=== PATIENT | female | born 1990 | race African-American/Black ===

== ENCOUNTER 2023-04-27 04:49 | Emergency (ER) | payer MEDICAID, SELFPAY ==
[2023-04-27 04:52] VITALS: BMI 38.6
[2023-04-27 04:59] VITALS: BP 174/105; PULSE 74; RESP 16; TEMP 36.3; O2SAT 97
--- NOTE | 2023-04-27 05:05 | ED.CHESTPAIN ---
HPI - Chest Pain General Chief Complaint: Chest Pain Stated Complaint: chest discomfort Time Seen by Provider: 04/27/23 04:57 Source: patient Mode of arrival: EMS Limitations: no limitations History of Present Illness HPI narrative: Patient comes to the emergency room complaining of left-sided chest pain that started approximately 3 hours ago. Patient states that she has been having palpitations for several years, the palpitations got worse while she was , patient delivered her baby 2 months ago, palpitations have been less intense but still present. Today, patient states that she was half asleep, started having palpitations, sharp pain, then subsided. Related Data Allergies Allergy/AdvReac Type Severity Reaction Status Date / Time hydromorphone [From DILAUDID] Allergy Unknown RASH Unverified 04/06/20 18:48 lamotrigine [From LAMICTAL] Allergy Unknown RASH Unverified 04/06/20 18:48 morphine [MORPHINE] Allergy Unknown RASH Unverified 04/06/20 18:48 pineapple [PINEAPPLE] Allergy Unknown HIVES Unverified 04/06/20 18:48 Review of Systems Review of Systems: Constitutional : No Weight loss, No Fever, No Chills, No Night Sweats, No Fatigue, No Malaise ENT/Mouth : No Hearing loss, No Ear Pain, No Nasal Congestion, No Sinus Pain, No Hoarseness, No sore throat, No Rhinorrhea, No Swallowing Difficulty Eyes: No Eye Pain, No Swelling, No Redness, No Foreign Body, No Discharge, No Vision Changes Cardiovascular : Complaining of left-sided chest pain,, No SOB, No Dyspnea on Exertion, No Orthopnea, No Edema, planning palpitations Respiratory : No Cough, No Sputum, No Wheezing, No Smoke Exposure, No Dyspnea Gastrointestinal : No Nausea, No Vomiting, No Diarrhea, No Constipation, No abdominal Pain, No Hematochezia, No Melena Genitourinary : no irregular bleeding, No Dysuria, No Urinary Frequency, No Hematuria, No Urinary Incontinence, No Urgency, No Flank Pain, No Urinary Flow Changes, No Hesitancy Musculoskeletal : No joint pain, No Myalgias, No Joint Swelling Skin : No Skin Lesions, No rash Neuro : No Weakness, No Numbness, No Paresthesias, No Loss of Consciousness, No Dizziness, No Headache Psych : No Anxiety/Panic, No Depression, No SI/HI/AH/VH, No Social Issues, Heme/Lymph: No Bruising, No Bleeding,No Lymphadenopathy Endocrine : No Polyuria, No Polydipsia, No Temperature Intolerance [facility] Social History Social History Advance Directives: No Advance Directives Information Provided: No Patient : No Physical Exam Vital Signs: Vital Signs: Last Vital Signs Temp 97.4 F 04/27/23 04:59 Pulse 74 04/27/23 04:59 Resp 16 04/27/23 04:59 BP 174/105 H 04/27/23 04:59 Pulse Ox 97 04/27/23 04:59 O2 Del Method Room Air 04/27/23 04:59 BMI result Body Mass Index 38.6 Const: Other: Appearance: Alert. Oriented X3. No acute distress. Well appearing Eyes: Pupils equal, round and reactive to light. ENT: Pharynx normal. Neck: Normal inspection. Neck supple. No lymph nodes noted. No crepitus CVS: Normal heart rate and rhythm. Pulses normal. Normal S1 and S2 Respiratory: No respiratory distress. Breath sounds normal. No Wheezing. No rales Abdomen: Soft and nontender. No rigidity. No distention. Skin: Skin warm and dry. Normal skin color. Normal skin turgor. Extremities: No lower extremity edema. No Lacerations. No Rash Neuro: Oriented X 3. No motor deficit. No sensory deficit. Moving all extremities. No slurred speech. CN 2 through 12 grossly intact Psych: calm, cooperative, normal affect Course Course Course Narrative: -all of patient's labs and imaging are pending Medical Decision Making Medical Decision Making MDM Narrative: -my interpretation of labs: Normal D-dimer, troponin 17.8, patient does have chronic troponins on the higher spectrum of normal limits. Patient remains asymptomatic, no chest pain or palpitations. -my interpretation of EKG, sinus rhythm, heart rate 67, no ST segment depression or elevation, nonspecific T-wave inversion in lead 3, QTC 488, EKGs not crossing to the system6 -instructed patient to follow-up with the primary care physician, patient will benefit from a Holter monitor. Differential Diagnosis Differential Diagnoses: The differential diagnosis associated with the presentation includes (Sinus tachycardia, SVT, palpitations, hyperthyroidism) Admission/Observation Consideration of admission/observation: Escalation of care including admission/observation considered (Patient complaining of the patient's arrival, admission was considered) Lab Data MDM Lab Attestation statement: I reviewed the patient's lab results. 04/27/23 05:12 04/27/23 05:12 Labs: Lab Results 04/27/23 04/27/23 Range/Units 05:11 05:12 WBC 5.3 (4.8-10.8) X10*3/uL RBC 5.18 (4.20-5.50) X10*6/uL Hgb 11.2 L (12.0-16.0) g/dl Hct 38.2 (37.0-47.0) % MCV 73.7 L (80.0-98.0) fL MCH 21.6 L (27.0-33.0) pg MCHC 29.3 L (31.0-35.0) g/dl RDW 14.1 (11.0-16.0) % Plt Count 179 (160-400) X10*3/uL MPV 11.9 (9.4-12.3) fL Immature Gran % (Auto) 0.0 (0.0-0.4) % Neut % (Auto) 51.2 (45-73) % Lymph % (Auto) 36.3 (20-40) % [place] % (Auto) 8.1 (2-11) % Eos % (Auto) 4.0 (0-4) % Baso % (Auto) 0.4 (0-2) % Lymph # (Auto) 1.9 (1.2-4.9) X10*3/uL [place] # (Auto) 0.4 (0.1-1.2) X10*3/uL Eos # (Auto) 0.2 (0.0-0.4) X10*3/uL Baso # (Auto) 0.0 (0.0-0.2) X10*3/uL Abs Immat Gran (auto) 0.00 (0.00-0.03) X10*3/uL Absolute Neuts (auto) 2.7 (2.0-8.3) x10*3/uL Absolute Nucleated RBC 0.000 (0.0-0.012) X10*3/uL Nucleated RBC % (auto) 0.0 (0.0-0.2) /100WBC D-Dimer High Sensitivty < 150 NG/ML Sodium 139 (135-145) mmol/L Potassium 3.5 (3.3-5.1) mmol/L Chloride 103 (96-108) mmol/L Carbon Dioxide 24 (22-29) mmol/L Anion Gap 16 (12-20) BUN 12 (9-16) mg/dL Creatinine 0.75 (0.5-1.4) mg/dL Estim Creat Clear Calc 117.2 Estimated GFR > 60 Random Glucose 101 (60-115) mg/dL Calcium 8.9 (8.4-10.2) mg/dL Troponin I High Sens 17.8 H (<3.5-17.0) ng/L TSH 4.49 H (0.32-4.0) uIU/mL Free T4 0.76 (0.71-1.85) ng/dL Radiology Impression Discussion of test interpretation with radiology: I have reviewed the radiologist's reading. Radiologist Impression: The cardiomediastinal silhouette is normal. There is no focal lung consolidation or pleural effusion. The bony structures and soft tissues are unremarkable. XR/XR chest 1V IMPRESSION: No active cardiopulmonary disease. Critical Care Time Critical Care Time Critical Care Time: Yes Total Critical Care Time: 45 Attestation: I have personally provided critical care time. Time includes review of lab data, radiology results, discussion with consultants, and monitoring for potential decompensation. Intervention performed as documented. Discharge Plan Discharge Clinical Impression: Palpitations Patient Disposition: Home, Self-Care Instructions: Heart Palpitations (ED) Additional Instructions: Please follow-up with your primary care physician tomorrow. If you have any worsening or new symptoms, please return to the emergency room or call 911 Referrals: Roberto Carr MD [Physician] - 04/29/23
[2023-04-27 05:17] LABS: MANUAL DIFF FLAG NO
[2023-04-27 05:19] LABS: Basophils Percent Auto 0.4 % (0-2); Eosinophils Absolute Auto 0.2 X10*3/uL (0.0-0.4); Hematocrit 38.2 % (37.0-47.0); Hemoglobin 11.2 g/dl (12.0-16.0); Lymphocytes Absolute Auto 1.9 X10*3/uL (1.2-4.9); Lymphocytes Percent Auto 36.3 % (20-40); Mean Corpuscular HGB Conc 29.3 g/dl (31.0-35.0); Mean Corpuscular Hemoglobin 21.6 pg (27.0-33.0); Mean Corpuscular Volume 73.7 fL (80.0-98.0); Mean Platelet Volume 11.9 fL (9.4-12.3); Monocytes Absolute Auto 0.4 X10*3/uL (0.1-1.2); Monocytes Percent Auto 8.1 % (2-11); Neutrophils Absolute Auto 2.7 x10*3/uL (2.0-8.3); Neutrophils Percent Auto 51.2 % (45-73); Platelet Count 179 X10*3/uL (160-400); Red Blood Count 5.18 X10*6/uL (4.20-5.50); Red Cell Distribution Width 14.1 % (11.0-16.0); White Blood Count 5.3 X10*3/uL (4.8-10.8)
[2023-04-27 05:27] LABS: D Dimer High Sensitivity < 150 NG/ML
[2023-04-27 05:40] LABS: Anion Gap 16 (12-20)
[2023-04-27 05:49] LABS: Blood Urea Nitrogen 12 mg/dL (9-16); Calcium 8.9 mg/dL (8.4-10.2); Carbon Dioxide 24 mmol/L (22-29); Chloride 103 mmol/L (96-108); Creatinine Clr Calc Pharmacy 117.2; Estimated Glomerular Filt Rate > 60; Glucose Random 101 mg/dL (60-115); Potassium 3.5 mmol/L (3.3-5.1); Sodium 139 mmol/L (135-145)
[2023-04-27 05:52] LABS: Troponin-I High Sensitivity 17.8 ng/L (<3.5-17.0)
[2023-04-27 06:06] LABS: TSH reflex Free T4 4.49 uIU/mL (0.32-4.0)
[2023-04-27 06:40] LABS: Free T4 (Free Thyroxine) 0.76 ng/dL (0.71-1.85)
== END 2023-04-27 07:03 | disposition home or self-care (01) ==
PROVIDERS: Emergency Provider Emergency Medicine; PCP Family Medicine
DX: R07.89 Other chest pain (principal); R00.2 Palpitations; Z79.899 Other long term (current) drug therapy
CPT/HCPCS: 36415; 71045; 80048; 84439; 84443; 84484; 85025; 85379; 93005; 99284

== ENCOUNTER → 2024-10-11 22:26 | Outpatient (BNV) | payer MEDICAID, SELFPAY | PROVIDERS: Emergency Provider Emergency Medicine; PCP Family Medicine; Visit Provider Internal Medicine Cardiovascular Disease | DX: R94.31 Abnormal electrocardiogram [ECG] [EKG] (principal); R07.9 Chest pain, unspecified | CPT/HCPCS: 93010 ==

== ENCOUNTER 2024-10-11 22:28 | Emergency (ER) | payer MEDICAID, SELFPAY ==
--- NOTE | 2024-10-11 | ECG_ITS ---
Test Reason : CP Blood Pressure : */* mmHG Vent. Rate : 63 BPM Atrial Rate : 63 BPM P-R Int : 130 ms QRS Dur : 88 ms QT Int : 416 ms P-R-T Axes : 27 27 12 degrees QTcB Int : 425 ms Normal sinus rhythm Cannot rule out Anterior infarct (cited on or before 27-Apr-2023) Abnormal ECG When compared with ECG of 27-Apr-2023 05:05, QT has shortened Referred By: Generic ED Physician Electronically Signed By: PARVIN ARCE MD
--- NOTE | ~2024-10-11 | XR_ITS ---
CLINICAL HISTORY: CHEST PAIN SHORTNESS OF BREATH 2 view chest x-ray Comparison: CR/SR - XR CHEST 1V - 04/27/23 05:13 EDT Findings: No consolidation or effusion. Normal size heart. No acute fracture. IMPRESSION: 1. No acute findings. This document has been electronically signed by: Leonid Velazquez MD on 10/11/2024 23:26:49
[2024-10-11 22:40] VITALS: BP 158/100; PULSE 68; RESP 18; TEMP 36.8; O2SAT 98; BMI 39.0
[2024-10-11 22:47] VITALS: BP 148/76; PULSE 78; O2SAT 100
[2024-10-11 22:55] LABS: MANUAL DIFF FLAG NO
[2024-10-11 22:57] LABS: Basophils Percent Auto 0.5 % (0-2); Eosinophils Absolute Auto 0.2 X10*3/uL (0.0-0.4); Eosinophils Percent Auto 3.8 % (0-4); Hematocrit 35.3 % (37.0-47.0); Hemoglobin 10.5 g/dl (12.0-16.0); Imm Gran Abs Auto 0.01 X10*3/uL (0.00-0.03); Imm Gran Pct Auto 0.2 % (0.0-0.4); Lymphocytes Absolute Auto 2.5 X10*3/uL (1.2-4.9); Mean Corpuscular HGB Conc 29.7 g/dl (31.0-35.0); Mean Corpuscular Hemoglobin 21.6 pg (27.0-33.0); Mean Corpuscular Volume 72.5 fL (80.0-98.0); Mean Platelet Volume 12.1 fL (9.4-12.3); Monocytes Absolute Auto 0.5 X10*3/uL (0.1-1.2); Monocytes Percent Auto 8.2 % (2-11); Neutrophils Absolute Auto 2.3 x10*3/uL (2.0-8.3); Neutrophils Percent Auto 41.3 % (45-73); Platelet Count 254 X10*3/uL (160-400); Red Blood Count 4.87 X10*6/uL (4.20-5.50); Red Cell Distribution Width 14.7 % (11.0-16.0); White Blood Count 5.5 X10*3/uL (4.8-10.8)
[2024-10-11 23:15] LABS: Alanine Aminotransferase 20 U/L (0-31); Albumin Level 3.7 g/dL (3.5-5.0); Alkaline Phosphatase 88 U/L (39-117); Anion Gap 11 (12-20); Aspartate Amino Transferase 21 U/L (5-31); Bilirubin Total 0.1 mg/dL (0.0-1.0); Blood Urea Nitrogen 10 mg/dL (9-16); Calcium 8.5 mg/dL (8.4-10.2); Carbon Dioxide 24 mmol/L (22-29); Chloride 109 mmol/L (96-108); Creatinine Clr Calc Pharmacy 117.3; Estimated Glomerular Filt Rate > 60; Glucose Random 96 mg/dL (60-115); Lipase 29 U/L (8-78); Potassium 3.5 mmol/L (3.3-5.1); Sodium 140 mmol/L (135-145); Total Protein 7.3 g/dL (6.5-8.0)
[2024-10-11 23:23] LABS: Troponin-I High Sensitivity 16.5 ng/L (<3.5-17.0)
[2024-10-11 23:43] VITALS: BP 171/104; PULSE 71
[2024-10-11 23:56] LABS: INTERNATIONAL NORM RATIO 0.9 (0.9-1.1)
[2024-10-12 00:13] LABS: B Type Natriuretic Peptide 14 pg/mL (<100)
[2024-10-12 01:26] VITALS: BP 163/89; PULSE 67; RESP 18; O2SAT 100
[2024-10-12 01:59] LABS: Troponin-I High Sensitivity 15.6 ng/L (<3.5-17.0)
[2024-10-12 03:14] VITALS: BP 132/85; PULSE 68; RESP 16; TEMP 36.6; O2SAT 99
[2024-10-12 03:33] VITALS: BP 138/90; PULSE 69; RESP 16; TEMP 36.7; O2SAT 98
--- NOTE | 2024-10-12 03:45 | ED_ITS ---
HPI - Chest Pain General Chief Complaint: Chest Pain Stated Complaint: Chest pain Time Seen by Provider: 10/12/24 03:32 Source: patient, EMS and old records reviewed Mode of arrival: EMS Limitations: no limitations History of Present Illness ED Provider: FAVIAN DAVIS narrative: 34 yo female with PMH of PCOS, fibromyalgia who has had chest pain since 2020 with negative ECHO and holter monitor x 3. She follows with [facility] - she notes the same thing happened this week she felt headaches, chest pain, dyspnea with no response to her gabapentin. She has no known heart disease. She has not traveled or had procedure, she is not on OCPs. She notes she thinks her headaches trigger it. MD complaint: chest heaviness Onset (ago): year(s) (since 2020) Timing of current episode: episodic Prior episodes: Yes Onset: during rest and during exertion Pain location: substernal Pain radiation: left arm Severity: moderate Quality: aching Relieving factors: nothing Exacerbating factors: movement and other (headaches) Context: other Associated symptoms: nausea, palpitations and other (headache) Treatment prior to arrival: none Related Data Allergies Allergy/AdvReac Type Severity Reaction Status Date / Time hydromorphone [From DILAUDID] Allergy Unknown RASH Verified 10/12/24 04:11 lamotrigine [From LAMICTAL] Allergy Unknown RASH Verified 10/12/24 04:11 morphine [MORPHINE] Allergy Unknown RASH Verified 10/12/24 04:11 pineapple [PINEAPPLE] Allergy Unknown HIVES Verified 10/12/24 04:11 ketorolac [From Toradol] AdvReac Chest Pain Verified 10/12/24 04:11 Review of Systems 2 Review of Systems: Constitutional : No Weight loss, No Fever, No Chills ENT/Mouth : No sore throat, No Rhinorrhea Eyes: No Eye Pain, No Swelling Cardiovascular : pos Chest Pain, pos SOB, no Dyspnea on Exertion, No Orthopnea, No Edema, No Palpitations Respiratory : No Cough, No Sputum Gastrointestinal : no Nausea, No Vomiting, No Diarrhea, No abdominal Pain, No Hematochezia, No Melena Genitourinary : No Dysuria, No Urinary Frequency Musculoskeletal : No joint pain, No Myalgias, No Joint Swelling Skin : No Skin Lesions, No rash Neuro : No Weakness, No Numbness, No Dizziness, pos Headache All other systems reviewed and are negative [facility] Past Medical History Attestation statement: The following information was validated with the patient. Source: old records reviewed Medical History (Updated 10/12/24 @ 04:34 by Judith Galeano DO) Migraine Chest pain Social History Social History Alcohol intake: never Smoked in Last 30 Days: No Use of substances other than those prescribed or required for medical reasons: No Advance Directives: No Advance Directives Information Provided: Yes Patient : No Physical Exam 2 Vital Signs: Vital Signs: Last Vital Signs Temp 98.1 F 10/12/24 03:33 Pulse 69 10/12/24 03:33 Resp 16 10/12/24 03:33 BP 138/90 H 10/12/24 03:33 Pulse Ox 98 10/12/24 03:33 O2 Del Method Room Air 10/12/24 03:33 BMI result Body Mass Index 39.0 Appearance: Alert. Oriented X3. No acute distress. Eyes: Pupils equal, round and reactive to light. ENT: Pharynx normal. Neck: Normal inspection. Neck supple. CVS: Normal heart rate and rhythm. Pulses normal. Respiratory: No respiratory distress. Breath sounds normal. Abdomen: Soft and nontender. Skin: Skin warm and dry. Normal skin color. Normal skin turgor. Extremities: No lower extremity edema. No calf ttp Neuro: Oriented X 3. No motor deficit. No sensory deficit. CN2-12 intact Medications Administered Discontinued Medications Generic Name Dose Route Start Last Admin Trade Name Freq PRN Reason Stop Dose Admin Metoclopramide HCl 10 mg 10/12/24 04:09 10/12/24 04:16 Metoclopramide Hcl 10 Mg/2 Ml Vial IM 10/12/24 04:10 10 mg ONCE ONE Administration Medical Decision Making Medical Decision Making MDM Narrative: 34 yo female with PMH of PCOS, fibromyalgia here with c/o chest pain that is atypical with negative ECHO/holter and no known CAD who has pain since 2020 - at this time troponin, EKG, CXR ordered. He also c/o headache as well that triggers these episodes - at this time will offer IM reglan for pain control/headache. Distal pulses intact doubt dissection and PERC negative Differential Diagnosis Differential Diagnoses: The differential diagnosis associated with the presentation includes atypical chest pain doubt ACS PERC negative Admission/Observation Consideration of admission/observation: Escalation of care including admission/observation considered negative work up stable for DC Lab Data MDM Lab Attestation statement: I reviewed the patient's lab results. 10/11/24 22:33 10/11/24 22:33 Labs: Lab Results 10/11/24 10/11/24 10/12/24 Range/Units 22:33 23:33 01:24 WBC 5.5 (4.8-10.8) X10*3/uL RBC 4.87 (4.20-5.50) X10*6/uL Hgb 10.5 L (12.0-16.0) g/dl Hct 35.3 L (37.0-47.0) % MCV 72.5 L (80.0-98.0) fL MCH 21.6 L (27.0-33.0) pg MCHC 29.7 L (31.0-35.0) g/dl RDW 14.7 (11.0-16.0) % Plt Count 254 D (160-400) X10*3/uL MPV 12.1 (9.4-12.3) fL Immature Gran % (Auto) 0.2 (0.0-0.4) % Neut % (Auto) 41.3 L (45-73) % Lymph % (Auto) 46.0 H (20-40) % [place] % (Auto) 8.2 (2-11) % Eos % (Auto) 3.8 (0-4) % Baso % (Auto) 0.5 (0-2) % Lymph # (Auto) 2.5 (1.2-4.9) X10*3/uL [place] # (Auto) 0.5 (0.1-1.2) X10*3/uL Eos # (Auto) 0.2 (0.0-0.4) X10*3/uL Baso # (Auto) 0.0 (0.0-0.2) X10*3/uL Abs Immat Gran (auto) 0.01 (0.00-0.03) X10*3/uL Absolute Neuts (auto) 2.3 (2.0-8.3) x10*3/uL Absolute Nucleated RBC 0.000 (0.0-0.012) X10*3/uL Nucleated RBC % (auto) 0.0 (0.0-0.2) /100WBC PT 11.0 (10.9-12.4) SEC INR 0.9 (0.9-1.1) Sodium 140 (135-145) mmol/L Potassium 3.5 (3.3-5.1) mmol/L Chloride 109 H (96-108) mmol/L Carbon Dioxide 24 (22-29) mmol/L Anion Gap 11 L (12-20) BUN 10 (9-16) mg/dL Creatinine 0.74 (0.5-1.4) mg/dL Estim Creat Clear Calc 117.3 Estimated GFR > 60 Random Glucose 96 (60-115) mg/dL Calcium 8.5 (8.4-10.2) mg/dL Total Bilirubin 0.1 (0.0-1.0) mg/dL AST 21 (5-31) U/L ALT 20 (0-31) U/L Alkaline Phosphatase 88 (39-117) U/L Troponin I High Sens 16.5 15.6 (<3.5-17.0) ng/L B-Natriuretic Peptide 14 (<100) pg/mL Total Protein 7.3 (6.5-8.0) g/dL Albumin 3.7 (3.5-5.0) g/dL Lipase 29 (8-78) U/L Independent Interpretation I performed an independent interpretation of an: EKG and Plain X-Ray (normal ) Interpretation: Rate: 63 Rhythm: NSR [place]: normal Normal P waves. Normal TAB. Normal QRS complex. ST T wave : no RENET[place], inverted t waves III and V1 qTC: 425 prior studies: no acute ischemia The study has been interpreted contemporaneously by me. . Radiology Impression Discussion of test interpretation with radiology: I have reviewed the radiologist's reading. External Record Review External record reviewed: Outpatient record Prescription Management I considered prescription management with: Other Discharge Plan Discharge Clinical Impression: Atypical chest pain Patient Disposition: Home, Self-Care Instructions: Chest Pain (ED) Additional Instructions: your EKG and labs including troponin tests x 2 were normal chest xray normal please rest and stay hydrated return for any worsening symptoms or concerns Print Language: Chinese
[2024-10-12] MEDS: Metoclopramide HCl 10 MG/2 ML VIAL IM (04:16)
[2024-10-12 04:46] VITALS: BP 127/71; PULSE 84; RESP 16; TEMP 36.8; O2SAT 97
[2024-10-12 04:48] VITALS: BP 127/71; PULSE 84; RESP 16; TEMP 36.8; O2SAT 97
== END 2024-10-12 04:57 | disposition home or self-care (01) ==
PROVIDERS: Emergency Provider Emergency Medicine; PCP Family Medicine
DX: R07.9 Chest pain, unspecified (principal); R51.9 Headache, unspecified; R06.00 Dyspnea, unspecified
CPT/HCPCS: 36415; 71046; 80053; 83690; 83880; 84484; 85025; 85610; 93005; 96372; 99284; J2765

== ENCOUNTER → 2024-10-11 22:54 | Outpatient (BNV) | payer MEDICAID, SELFPAY | PROVIDERS: Visit Provider Radiology Diagnostic Radiology | DX: R07.9 Chest pain, unspecified (principal) | CPT/HCPCS: 71046 ==

== ENCOUNTER 2024-10-18 08:25 | Emergency (ER) | payer MEDICAID, SELFPAY ==
[2024-10-18 08:32] VITALS: BP 152/95; BP 160/92; PULSE 71; PULSE 78; RESP 18; TEMP 36.7; O2SAT 95; O2SAT 99; BMI 41.0
[2024-10-18 08:44] VITALS: BP 122/74; PULSE 74; RESP 18; TEMP 36.9; O2SAT 92
[2024-10-18] MEDS: 0.9 % Sodium Chloride 1,000 ML 999 ML IV (09:04)
[2024-10-18 09:05] LABS: MANUAL DIFF FLAG NO
[2024-10-18] MEDS: Famotidine/PF 20 MG/2 ML VIAL IVPUSH (09:06)
[2024-10-18] MEDS: dexAMETHasone sod phosphate 10 MG/ML VIAL IVPUSH (09:06)
--- NOTE | 2024-10-18 09:07 | ED.GENADULT ---
HPI - General Adult General Chief complaint: General Medical Stated complaint: SWOLLEN TONSILS PER EMS Time Seen by Provider: 10/18/24 08:32 Source: patient, EMS and old records reviewed Limitations: no limitations History of Present Illness ED Provider: FAVIAN DAVIS narrative: 34 yo female with PMH of HTN not on DAKSHA-i. States she felt fine yesterday no URI symptoms but then woke up with this sensation of mucous or something on the back of her throat. She is choking when she swallows. No fevers, no dyspnea. She states she has never had anything like this before. No dyspnea and no rash reported. She kept trying to clear her nose. Symptoms started abruptly this AM MD complaint: throat sensation/pain Onset (ago): hour(s) (several) Location: mouth Radiation: non-radiation Severity: moderate Quality: dull Pain Consistency: intermittent Relieving factors: none Exacerbating factors: other (swallowing) Associated symptoms: other (runny nose) Treatments prior to arrival: none Related Data Previous Rx's ?Medication ?Instructions ?Recorded amoxicillin 875 mg-potassium 1 tab PO BID 10 days #20 tabs 10/18/24 clavulanate 125 mg tablet prednisone 20 mg tablet 40 mg (2 x 20 mg) PO DAILY 5 days 10/18/24 #10 tabs Allergies Allergy/AdvReac Type Severity Reaction Status Date / Time hydromorphone [From DILAUDID] Allergy Unknown RASH Verified 10/18/24 08:36 lamotrigine [From LAMICTAL] Allergy Unknown RASH Verified 10/18/24 08:36 morphine [MORPHINE] Allergy Unknown RASH Verified 10/18/24 08:36 pineapple [PINEAPPLE] Allergy Unknown HIVES Verified 10/18/24 08:36 ketorolac [From Toradol] AdvReac Chest Pain Verified 10/18/24 08:36 Review of Systems Review of Systems: Constitutional : No Fever, No Chills ENT/Mouth : pos sore throat, pos Rhinorrhea Eyes: No Eye Pain, No Swelling, No Redness Cardiovascular : No Chest Pain, No SOB Respiratory : No Cough, No Sputum Gastrointestinal : No Nausea, No Vomiting, No Diarrhea, No abdominal Pain Genitourinary : No Dysuria, No Hematuria Musculoskeletal : No joint pain, No Myalgias, No Joint Swelling Skin : No Skin Lesions, no skin rash Neuro : No Weakness, No Numbness, No Headache Psych : No Anxiety, No Depression Heme/Lymph: No Bruising, No Bleeding,No Lymphadenopathy Endocrine : No Polyuria, No Polydipsia All other systems reviewed and are negative [facility] Past Medical History Attestation statement: The following information was validated with the patient. Source: old records reviewed Medical History Migraine Chest pain Social History Social History (Updated 10/18/24 @ 09:14 by Judith Galeano DO) Alcohol intake: never Patient Tobacco Use Status: Never used Tobacco Smoked in Last 30 Days: No Use of substances other than those prescribed or required for medical reasons: No Advance Directives: No Advance Directives Information Provided: Yes Patient : No Physical Exam ED Vital Signs: Vital Signs - 24 hr 10/18/24 08:32 10/18/24 08:44 10/18/24 11:05 Temperature 98.0 F 98.5 F 98.5 F Pulse Rate 71 74 75 Respiratory Rate 18 18 14 Blood Pressure 152/95 H 122/74 151/93 H Pulse Oximetry 95 92 97 Oxygen Delivery Method Room Air Room Air Room Air BMI result Body Mass Index 41.0 Appearance: Alert. Oriented X3. No acute distress. Eyes: Pupils equal, round and reactive to light. ENT: Pharynx tonsils normal, normal voice, not drooling she can swallow but the sensation is bothersome. The uvula is enlarged at the bottom with mild erythema and clear fluid sac consistent with uvula hydrops. No other swelling noted on lips or tongue Neck: Normal inspection. Neck supple. CVS: Normal heart rate and rhythm. Pulses normal. Respiratory: No respiratory distress. Breath sounds normal. Abdomen: Soft and nontender. Skin: Skin warm and dry. Normal skin color. Normal skin turgor. Extremities: No lower extremity edema. No calf ttp Neuro: Oriented X 3. No motor deficit. No sensory deficit. CN2-12 intact Course Reevaluation(s) Reevaluation #1: Dr. Lomax's progress note: Patient feels better, able to speak in full sentence, able to swallow, no breathing issue, O2 sat is 96%, patient was feeling nauseous improved with Zofran, no complaints at this point. Time: 12:22 Medications Administered Discontinued Medications Generic Name Dose Route Start Last Admin Trade Name Freq PRN Reason Stop Dose Admin Ceftriaxone Sodium 2 gm 10/18/24 08:35 10/18/24 09:18 Ceftriaxone Sodium 2 Gm Vial IVPUSH 10/18/24 08:36 2 gm ONCE ONE Administration Dexamethasone Sodium Phosphate 10 mg 10/18/24 08:34 10/18/24 09:06 Dexamethasone Sod Phosphate 10 Mg/Ml Vial IVPUSH 10/18/24 08:35 10 mg ONCE ONE Administration Diphenhydramine HCl 25 mg 10/18/24 08:39 10/18/24 09:13 Diphenhydramine Hcl 50 Mg/Ml Vial IVPUSH 10/18/24 08:40 25 mg ONCE ONE Administration Famotidine 20 mg 10/18/24 08:39 10/18/24 09:06 Famotidine/Pf 20 Mg/2 Ml Vial IVPUSH 10/18/24 08:40 20 mg ONCE ONE Administration Sodium Chloride 1,000 mls @ 999 mls/hr 10/18/24 08:34 10/18/24 10:58 Ns IV 10/18/24 09:34 Infused .Q1H1M ONE Infusion Ondansetron HCl 4 mg 10/18/24 11:23 10/18/24 11:36 Ondansetron Hcl 4 Mg/2 Ml Vial IVPUSH 10/18/24 11:24 4 mg ONCE ONE Administration Medical Decision Making Medical Decision Making [facility] Narrative: 34 yo female with PMH of HTN not on DAKSHA-i here with c/o sensation in throat and bothersome symptoms here with c/o feeling there is an area of swelling in the back of the throat on exam she has swelling of the uvula but nothing else it is isolated will treat as infection vs allergic reaction - will obtain labs, start on steroids/benadryl/pepcid and IV abx. If she is better anticipate DC home on steroids and abx. Suspect allergy vs localized uvula infection there are no other signs of allergy or deeper space infection Differential Diagnosis Differential Diagnoses: The differential diagnosis associated with the presentation includes uvulitis, allergy Admission/Observation Consideration of admission/observation: Escalation of care including admission/observation considered Lab Data [facility] Lab Attestation statement: I reviewed the patient's lab results. 10/18/24 08:53 10/18/24 08:53 Labs: Lab Results 03/31/25 Range/Units 08:53 WBC 5.2 (4.8-10.8) X10*3/uL RBC 5.02 (4.20-5.50) X10*6/uL Hgb 10.7 L (12.0-16.0) g/dl Hct 37.2 (37.0-47.0) % MCV 74.1 L (80.0-98.0) fL MCH 21.3 L (27.0-33.0) pg MCHC 28.8 L (31.0-35.0) g/dl RDW 15.0 (11.0-16.0) % Plt Count 244 (160-400) X10*3/uL MPV 11.6 (9.4-12.3) fL Immature Gran % (Auto) 0.2 (0.0-0.4) % Neut % (Auto) 48.8 (45-73) % Lymph % (Auto) 36.7 (20-40) % [place] % (Auto) 8.7 (2-11) % Eos % (Auto) 5.2 H (0-4) % Baso % (Auto) 0.4 (0-2) % Lymph # (Auto) 1.9 (1.2-4.9) X10*3/uL [place] # (Auto) 0.5 (0.1-1.2) X10*3/uL Eos # (Auto) 0.3 (0.0-0.4) X10*3/uL Baso # (Auto) 0.0 (0.0-0.2) X10*3/uL Abs Immat Gran (auto) 0.01 (0.00-0.03) X10*3/uL Absolute Neuts (auto) 2.5 (2.0-8.3) x10*3/uL Absolute Nucleated RBC 0.000 (0.0-0.012) X10*3/uL Nucleated RBC % (auto) 0.0 (0.0-0.2) /100WBC Sodium 140 (135-145) mmol/L Potassium 3.7 (3.3-5.1) mmol/L Chloride 109 H (96-108) mmol/L Carbon Dioxide 27 (22-29) mmol/L Anion Gap 8 L (12-20) BUN 9 (9-16) mg/dL Creatinine 0.69 (0.5-1.4) mg/dL Estim Creat Clear Calc 129.4 Estimated GFR > 60 Random Glucose 105 (60-115) mg/dL Lactic Acid 1.3 (0.5-2.0) mmol/L Calcium 8.3 L (8.4-10.2) mg/dL Magnesium 1.8 (1.6-2.6) mg/dL Total Bilirubin 0.1 (0.0-1.0) mg/dL Direct Bilirubin < 0.2 (0.0-0.5) mg/dL AST 20 (5-31) U/L ALT 20 (0-31) U/L Alkaline Phosphatase 84 (39-117) U/L Total Protein 7.2 (6.5-8.0) g/dL Albumin 3.6 (3.5-5.0) g/dL Lipase 35 (8-78) U/L Beta HCG, Quant < 2 mIU/mL Influenza Type A (PCR) NEGATIVE (Negative) Influenza Type B (PCR) NEGATIVE (Negative) RSV RNA Qual (PCR) NEGATIVE (Negative) SARS-CoV-2 RNA (RT-PCR) NEGATIVE (Negative) S. pyogenes GrpA KESHIA Negative (Negative) Independent Historian Clinical information obtained from an independent historian. History obtained from or confirmed by: EMS External Record Review External record reviewed: Outpatient record Prescription Management I considered prescription management with: Antibiotic and Other Discharge Plan Discharge Clinical Impression: Uvulitis Patient Disposition: Home, Self-Care Instructions: Uvulitis (ED) Additional Instructions: rest and stay hydrated finish all antibiotoics return for worsening swelling or difficulty breathing or any other concerns On amoxicillin-clavulanate, softer bowel movements are to be expected. Call your provider if you move your bowels more than 4 times a day, your bowel movements are almost all liquid, or you get a rash.? Prescriptions: New prednisone 20 mg tablet 40 mg PO DAILY 5 Days Qty: 10 0RF amoxicillin-pot clavulanate 875-125 mg tablet 1 tab PO BID 10 Days Qty: 20 0RF Stand Alone Forms: Work/School Release Print Language: Ukrainian
[2024-10-18 09:10] LABS: Basophils Percent Auto 0.4 % (0-2); Eosinophils Absolute Auto 0.3 X10*3/uL (0.0-0.4); Eosinophils Percent Auto 5.2 % (0-4); Hematocrit 37.2 % (37.0-47.0); Hemoglobin 10.7 g/dl (12.0-16.0); Imm Gran Abs Auto 0.01 X10*3/uL (0.00-0.03); Imm Gran Pct Auto 0.2 % (0.0-0.4); Lymphocytes Absolute Auto 1.9 X10*3/uL (1.2-4.9); Lymphocytes Percent Auto 36.7 % (20-40); Mean Corpuscular HGB Conc 28.8 g/dl (31.0-35.0); Mean Corpuscular Hemoglobin 21.3 pg (27.0-33.0); Mean Corpuscular Volume 74.1 fL (80.0-98.0); Mean Platelet Volume 11.6 fL (9.4-12.3); Monocytes Absolute Auto 0.5 X10*3/uL (0.1-1.2); Monocytes Percent Auto 8.7 % (2-11); Neutrophils Absolute Auto 2.5 x10*3/uL (2.0-8.3); Neutrophils Percent Auto 48.8 % (45-73); Platelet Count 244 X10*3/uL (160-400); Red Blood Count 5.02 X10*6/uL (4.20-5.50); White Blood Count 5.2 X10*3/uL (4.8-10.8)
[2024-10-18] MEDS: diphenhydrAMINE HCL 50 MG/ML VIAL 25 MG IVPUSH (09:13)
[2024-10-18 09:15] LABS: IDNOW Serial# 58CA691E; Strep A Nucleic Acid Negative (Negative)
[2024-10-18] MEDS: cefTRIAXone sodium 2 GM VIAL IVPUSH (09:18)
--- NOTE | 2024-10-18 09:20 | PC.NURSE ---
patienta&ox3, iv inserted, labs drawn, swabs obtained, pt medicated per order, rr equal non labored, 5/10 throat pain, call [facility] within reach, plan of care ongoing
[2024-10-18 09:32] LABS: Lactic Acid 1.3 mmol/L (0.5-2.0)
[2024-10-18 09:41] LABS: Alanine Aminotransferase 20 U/L (0-31); Albumin Level 3.6 g/dL (3.5-5.0); Alkaline Phosphatase 84 U/L (39-117); Anion Gap 8 (12-20); Aspartate Amino Transferase 20 U/L (5-31); Bilirubin Direct < 0.2 mg/dL (0.0-0.5); Bilirubin Total 0.1 mg/dL (0.0-1.0); Blood Urea Nitrogen 9 mg/dL (9-16); Calcium 8.3 mg/dL (8.4-10.2); Carbon Dioxide 27 mmol/L (22-29); Chloride 109 mmol/L (96-108); Creatinine Clr Calc Pharmacy 129.4; Estimated Glomerular Filt Rate > 60; Glucose Random 105 mg/dL (60-115); Lipase 35 U/L (8-78); Magnesium 1.8 mg/dL (1.6-2.6); Potassium 3.7 mmol/L (3.3-5.1); Sodium 140 mmol/L (135-145); Total Protein 7.2 g/dL (6.5-8.0)
[2024-10-18 09:57] LABS: HCG Quantitative < 2 mIU/mL
[2024-10-18 10:10] LABS: Influenza A PCR NEGATIVE (Negative); Influenza B PCR NEGATIVE (Negative); Resp Syncy Virus RNA Qual PCR NEGATIVE (Negative); SARS COV2 PCR INHOUSE NEGATIVE (Negative)
[2024-10-18 11:05] VITALS: BP 151/93; PULSE 75; RESP 14; TEMP 36.9; O2SAT 97
--- NOTE | 2024-10-18 11:10 | PC.NURSE ---
Report received at this time. Taken over care at this time.
[2024-10-18] MEDS: ondansetron HCL 4 MG/2 ML VIAL IVPUSH (11:36)
[2024-10-18 12:00] VITALS: BP 151/93; PULSE 75; RESP 14; TEMP 36.9; O2SAT 97
[2024-10-18 12:40] VITALS: BP 151/93; PULSE 75; RESP 14; TEMP 36.9; O2SAT 97
== END 2024-10-18 12:42 | disposition home or self-care (01) ==
PROVIDERS: Emergency Medicine; Emergency Provider Emergency Medicine; PCP Family Medicine
DX: K12.2 Cellulitis and abscess of mouth (principal); R11.0 Nausea; R09.89 Other specified symptoms and signs involving the circulatory and respiratory systems; Z79.899 Other long term (current) drug therapy; Z03.818 Encounter for observation for suspected exposure to other biological agents ruled out
CPT/HCPCS: 0241U; 36415; 80048; 80076; 83605; 83690; 83735; 84702; 85025; 87040; 87651; 96361; 96374; 96375; 99284; J0696; J1100; J1200; J2405

== ENCOUNTER 2024-10-20 08:37 | Inpatient (IN) | payer MEDICAID, SELFPAY ==
[2024-10-20] VITALS (11 sets, daily range): BP systolic 139–169; BP diastolic 79–104; PULSE 61–78; RESP 14–20; TEMP 36.1–36.9; O2SAT 97–99; BMI 39.9; BMI 39.4
--- NOTE | ~2024-10-20 | XR_ITS ---
EXAMINATION: XR CHEST 2 VIEWS HISTORY: chest pain COMPARISON: Comparison is made with the prior examination dated 10/11/2024. FINDINGS: PA and lateral views of the chest are submitted. The lungs are expanded and clear. There is no pleural effusion, pneumothorax, or pulmonary vascular congestion. The heart is normal in size. The bones are intact. XR/XR chest 2V IMPRESSION: No acute cardiopulmonary abnormality. Electronically signed by: Ishmael Dior MD 10/20/2024 10:00 AM EDT
--- NOTE | 2024-10-20 07:00 | CA_ITS ---
Transthoracic Echocardiogram Amended Patient (Last, First, Middle): Key Galdamez D Gender: Female Date of : 1990 Age: 34 Procedure Date: 10/20/2024 Procedure Type: Transthoracic Echocardiogram Location: [facility] Height: 157.48 cm Weight: 98.88 kg BSA: 1.98 m2 Heart Rate: 56 bpm BP: 152 / 103 mmHg Molder Sweep: JACOB Referring MD: Roberto Carr MD Symptoms: chest pain Study Quality: Adequate w Contast ECG Rhythm: Sinus Conclusions: - The left ventricular systolic function is normal. The calculated ejection fraction is 60% by biplane method. - Small area in the apical septum /apical inferior wall appears akinetic (vs cleft vs artifactual). - No obvious valvular pathology seen on this study. Findings Procedure Information Contrast agent, definity, is being given per protocol with complications as noted. The patient experienced back pain from contrast. Left Ventricle Normal left ventricular cavity size. There is normal left ventricular wall thickness. The left ventricular systolic function is normal. The calculated ejection fraction is 60% by biplane method. Diastolic function is normal for age. There is mild septal asymmetric hypertrophy. Small area in the apical septum /apical inferior wall appears akinetic (vs cleft vs artifactual). Right Ventricle Normal right ventricular cavity size and systolic function. Atria Both atria are normal in size. Aortic Valve There is a normal trileaflet aortic valve. There is no aortic valve stenosis. There is no aortic valve regurgitation. Mitral Valve The mitral valve appears normal. There is trace mitral valve regurgitation. There is no mitral valve stenosis. Pulmonic Valve The pulmonic valve is likely normal. There is trace pulmonic valve regurgitation. Tricuspid Valve There is mild tricuspid valve regurgitation. There is no evidence of pulmonary hypertension. Great Vessels The asc aorta and aortic arch are normal in size. Venous The inferior vena cava is mildly dilated and collapses greater than 50% with inspiration. Pericardium/Pleural There is no evidence of pericardial effusion. Prior Study Comparison No prior study available for comparison. Recommendations, Care & Conclusions No obvious valvular pathology seen on this study. Measurements 2D Linear Measurements IVSd: 1.07 0.6-0.9/0.6-1.0 cm LVIDd: 4.16 3.9-5.3/4.2-5.9 cm LVIDd Index: 2.10 2.4-3.2/2.2-3.1 cm/m2 LVIDs: 2.75 2.0-3.6 cm LVPWd: 0.93 0.7-1.1 cm LA Diam: 3.70 2.7-3.8/3.0-4.0 cm LAIDs Index: 1.87 1.5-2.3 cm/m2 LV Mass: 168.46 67-162/88-224 g LV Mass Index: 85.08 43-95/49-115 g/m2 LVOT Diam: 2.00 3.0+(-)1.3 cm 2D Volumes LA Vol: 28.20 2D Systolic Function EF 4C: 58.60 >55% EF 2C: 58.50 >55% EF BiP: 60.20 >55% Mitral Valve MV Pk E: 1.17 MV PK A: 0.60 MV Decel Time: 225.00 E/A: 1.90 E'Lateral: 10.10 E'Medial: 7.51 E/E' Med: 15.60 E/E' Lat: 11.60 PHT: 66.00 MVA PHT: 3.33 Decel [place]: 5.21 Aortic Valve AoV Pk Karl: 1.59 AoV Mn Karl: 1.11 AoV VTI: 0.38 AoV Pk Grad: 10.00 Aov Mn Grad: 6.00 BRYANT Cont.VTI: 1.68 LVOT LVOT Pk Karl: 0.89 LVOT Mn Karl: 0.56 LVOT VTI: 0.21 LVOT Pk Grad: 3.00 LVOT Mn Grad: 2.00 LVOT Diam: 2.00 LVOT Area: 3.14 Diastolic Function MV Pk E: 1.17 MV Pk A: 0.60 E/A: 1.90 E'Medial: 7.51 E/E' Med: 15.60 E' Laterial: 10.10 E/E' Lat: 11.60 Right Ventricle TAPSE (mm): 27.00 TVS' Karl: 12.00 Tricuspid Valve TR Pk Karl: 2.67 TR Pk Grad: 29.00 RA Press: 8.00 RVSP: 37.00 Great Vessels Aorta Sinus of Valsalva: 2.74 2.0-3.5 cm Ao Asc: 2.60 2.1-3.4 cm Ao Arch: 2.30 Updated in Other Vendor System with Status of Final Roberto Carr MD electronically signed on 10/21/2024 11:09:15 AM with status of Final
--- NOTE | 2024-10-20 08:40 | ECG_ITS ---
Test Reason : cp Blood Pressure : */* mmHG Vent. Rate : 66 BPM Atrial Rate : 66 BPM P-R Int : 126 ms QRS Dur : 86 ms QT Int : 400 ms P-R-T Axes : 24 25 17 degrees QTcB Int : 419 ms Normal sinus rhythm Cannot rule out Anterior infarct (cited on or before 27-Apr-2023) Abnormal ECG When compared with ECG of 11-Oct-2024 22:26, T wave inversion now evident in Anterior leads Referred By: Generic ED Physician Electronically Signed By: JOLYNN ENCISO
[2024-10-20 08:58] LABS: MANUAL DIFF FLAG NO
[2024-10-20 08:59] LABS: Basophils Percent Auto 0.3 % (0-2); Eosinophils Percent Auto 0.2 % (0-4); Hematocrit 34.7 % (37.0-47.0); Hemoglobin 10.3 g/dl (12.0-16.0); Imm Gran Abs Auto 0.05 X10*3/uL (0.00-0.03); Imm Gran Pct Auto 0.4 % (0.0-0.4); Lymphocytes Absolute Auto 2.5 X10*3/uL (1.2-4.9); Lymphocytes Percent Auto 21.6 % (20-40); Mean Corpuscular HGB Conc 29.7 g/dl (31.0-35.0); Mean Corpuscular Hemoglobin 21.8 pg (27.0-33.0); Mean Corpuscular Volume 73.4 fL (80.0-98.0); Mean Platelet Volume 11.6 fL (9.4-12.3); Monocytes Absolute Auto 0.5 X10*3/uL (0.1-1.2); Neutrophils Absolute Auto 8.5 x10*3/uL (2.0-8.3); Neutrophils Percent Auto 73.5 % (45-73); Platelet Count 232 X10*3/uL (160-400); Red Blood Count 4.73 X10*6/uL (4.20-5.50); Red Cell Distribution Width 15.4 % (11.0-16.0); White Blood Count 11.6 X10*3/uL (4.8-10.8)
--- NOTE | 2024-10-20 09:03 | ED_ITS ---
HPI - Chest Pain General Chief Complaint: Chest Pain Stated Complaint: Chest pain, shoulder pain Time Seen by Provider: 10/20/24 09:01 Source: patient Mode of arrival: ambulatory Limitations: no limitations History of Present Illness ED Provider: Loree Mason PA-C HPI narrative: Patient is a 34 year old assigned female at with a history of HTN on 25 mg of Carvedilol BID for which she follows with Dr. Garcia, fibromyalgia, and migraines presenting to the emergency department today with chest pain and right groin pain. Patient states that over the last week she has had a heaviness in her chest with intermittent left arm involvement. Patient states that she also bent over a week ago, felt a pop in her low back, and has had right groin pain ever since. Patient denies any dizziness, lightheadedness, abdominal pain, nausea, vomiting, fever, chills, blurry vision, double vision, loss of vision, difficulty breathing, shortness of breath, back pain, night sweats, pain with urination, increased urinary frequency, increased urinary urgency, blood in her urine or stool, syncope or a near syncopal episode, recent trauma or falls, bowel incontinence, bladder incontinence, or any other complaints at this time. MD complaint: chest heaviness Related Data Home Medications ?Medication ?Instructions ?Recorded ?Confirmed acetaminophen 500 mg tablet 500 - 1,000 mg PO Q6H PRN Pain 10/20/24 10/20/24 carvedilol 25 mg tablet 25 mg PO BID 10/20/24 10/20/24 dicyclomine 10 mg capsule 10 mg PO QID PRN cramps 10/20/24 10/20/24 ergocalciferol (vitamin D2) 1,250 1,250 mcg PO KENNEY 10/20/24 10/20/24 mcg (50,000 unit) capsule gabapentin 300 mg capsule 300 mg PO TID 10/20/24 10/20/24 hydrocortisone 2.5 % topical cream 1 appl topical BID 10/20/24 10/20/24 Allergies Allergy/AdvReac Type Severity Reaction Status Date / Time hydromorphone [From DILAUDID] Allergy Unknown RASH Verified 10/20/24 08:44 lamotrigine [From LAMICTAL] Allergy Unknown RASH Verified 10/20/24 08:44 morphine [MORPHINE] Allergy Unknown RASH Verified 10/20/24 08:44 pineapple [PINEAPPLE] Allergy Unknown HIVES Verified 10/20/24 08:44 Iodinated Contrast Media Allergy Chest Pain Verified 10/20/24 08:45 [Contrast Dye] ketorolac [From Toradol] AdvReac Chest Pain Verified 10/20/24 08:44 perflutren AdvReac Back Pain Verified 10/20/24 13:54 Review of Systems 2 Constitutional: Constitutional: Reports no additional constitutional complaints, Denies chills, Denies fever(s) and Denies night sweats Eyes: Eyes: Reports no additional eye complaints, Denies blurry vision, Denies change in vision, Denies diplopia, Denies eye discharge, Denies loss of vision and Denies eye pain ENT: Denies dizziness Cardiovascular: Cardiovascular: Reports no additional cardiovascular complaints, Reports chest pain, Denies lightheadedness, Denies Loss of Consciousness and Denies dyspnea Respiratory: Respiratory: Reports no additional respiratory complaints and Denies dyspnea Gastrointestinal: Gastrointestinal: Reports no additional gastrointestinal complaints, Denies abdominal pain, Denies melena, Denies hematochezia, Denies change in bowel habits and Denies change in stool character Genitourinary: Genitourinary: Denies hematuria, Denies urinary frequency, Denies dysuria, Denies urinary incontinence, Denies urinary hesitancy and Denies urinary urgency Musculoskeletal: Musculoskeletal: Reports no additional musculoskeletal complaints, Denies numbness and Denies tingling Comments: right groin pain Neurologic: Denies dizziness, Denies loss of vision, Denies numbness and Denies tingling Psychiatric: Psychiatric: Reports no additional psychiatric complaints Endocrine: Endocrine: Reports no additional endocrine complaints Hematologic/Lymphatic: Hematologic/Lymphatic: Reports no additional hematologic/lymphatic complaints Allergic/Immunologic: Allergic/Immunologic: Reports no additional allergic/immunologic complaints [facility] Past Medical History Attestation statement: The following information was validated with the patient. Source: old records reviewed and nursing notes reviewed Medical History (Updated 10/20/24 @ 16:29 by LINN Rae) Essential hypertension Migraine Chest pain Social History Social History Alcohol intake: never Patient Tobacco Use Status: Never used Tobacco Advance Directives: No Advance Directives Information Provided: Yes Do you have a plan to hurt others: No Plan Physical Exam 2 Vital Signs: Vital Signs: Last Vital Signs Temp 98.3 F 10/20/24 13:10 Pulse 72 10/20/24 13:41 Resp 16 10/20/24 13:41 BP 164/102 H 10/20/24 13:41 Pulse Ox 99 10/20/24 13:41 O2 Del Method Room Air 10/20/24 13:41 BMI result Body Mass Index 39.9 Const: General: cooperative, no acute distress, alert and awake Nutritional Appearance: well nourished Orientation/consciousness: patient oriented x3 Limitations: no limitations HEENT: Head: Yes normal to inspection and Yes atraumatic Ears: hearing grossly normal bilaterally and external ears normal General nose exam: Normal external nose present, no nasal discharge noted and no epistaxis Face and sinus: Yes normal facial exam, No abrasion and No laceration Mouth: Normal oral and palatal mucosa present, no drooling and no muffled voice Eyes: General: appearance normal, both eyes and all related structures P eriorbital: periorbital findings normal Eyelids: Yes eyelids normal C onjunctivae: conjunctivae normal Pupils: Equal, round and reactive pupils present EOM: EOMs intact bilaterally Neck: Neck: Yes normal visual inspection, Yes full ROM and Yes no lymphadenopathy Chest: Chest palpation & inspection: normal inspection of the chest Resp: Effort & Inspection: normal respiratory effort and able to speak in complete sentences GI: Inspection: Yes normal to inspection Neuro: General: patient oriented x3, moves all extremities and CN's II-XI intact bilaterally Cranial nerves: Yes Equal, round and reactive pupils present Cognition (Neuro): normal cognition Extrem: General: Yes normal to inspection, Yes full ROM and Yes capillary refill normal Psych: Appearance: grossly normal Mental Status: mental status grossly normal Affect: normal affect Attitude: cooperative Thought process: N ormal thought process present Thought content: Normal thought content present Insight: Good insight present (Psych) Medications Administered Generic Name Dose Route Start Last Admin Trade Name Freq PRN Reason Stop Dose Admin Sodium Chloride 3 ml 10/20/24 16:00 10/20/24 16:00 0.9 % Sodium Chloride Flush 3 Ml Syringe IVFLUSH Not Given QSHIFT HONG Discontinued Medications Generic Name Dose Route Start Last Admin Trade Name Freq PRN Reason Stop Dose Admin Amlodipine Besylate 5 mg 10/20/24 13:26 10/20/24 13:40 Amlodipine Besylate 5 Mg Tablet PO 10/20/24 13:27 5 mg ONCE ONE Administration Protocol Aspirin 324 mg 10/20/24 13:26 10/20/24 13:40 Aspirin 81 Mg Tab.Chew PO 10/20/24 13:27 324 mg ONCE ONE Administration Carvedilol 25 mg 10/20/24 10:23 10/20/24 11:03 Carvedilol 25 Mg Tablet PO 10/20/24 10:24 25 mg ONCE ONE Administration Protocol Diazepam 2.5 mg 10/20/24 09:28 10/20/24 09:49 Diazepam 10 Mg/2 Ml Cartridge IVPUSH 10/20/24 09:29 2.5 mg STAT STA Administration Enoxaparin Sodium 100 mg 10/20/24 15:26 10/20/24 15:56 Enoxaparin Sodium 100 Mg/Ml Syringe 1 mg/kg (100 mg) 10/20/24 15:27 100 mg SUBCUT Administration ONCE ONE Acetaminophen 1,000 mg in 100 mls @ 400 mls/hr 10/20/24 09:28 10/20/24 10:10 Ofirmev IV 10/20/24 09:42 Infused ONCE ONE Infusion Potassium Chloride 20 meq 10/20/24 15:22 10/20/24 15:56 Potassium Chloride Er 20 Meq Tab.Er.Prt PO 10/20/24 15:23 20 meq ONCE ONE Administration Sodium Chloride 3 ml 10/20/24 16:00 10/20/24 16:00 0.9 % Sodium Chloride Flush 3 Ml Syringe [facility]USH [facility] Decision Making Medical Decision Making [facility] Narrative: Patient is a 34 year old assigned female at with a history of HTN on 25 mg of Carvedilol BID for which she follows with Dr. Garcia, fibromyalgia, and migraines presenting to the emergency department today with chest pain and right groin pain. Patient's physical exam was unremarkable. Patient's blood work showed a WBC 11.6, K+ 3.2, firs trop 28 and rpt trop of 34.2. The rest of the patient's blood work was unremarkable including a negative d dimer. Patient's EKG showed new t wave inversion in the anterior leads when compared to the EKG on 10/11/2024. Patient's chest x-ray showed no acute process. Patient was initially hypertensive at 169/104. I spoke to the creche attendant, Dr. Carr who recommended giving the patient another dose of her home Coreg (25 mg) and obtaining an echo. Stated to give her amlodipine if her blood pressure remained elevated. She was given the coreg as directed and her blood pressure was 152/103. At that time, amlodipine was ordered and Dr. Carr recommended PO ASA and stated that he had spoke with [facility] hospitalist Shani Altman who accepted the patient for a direct admission however, he was not sure when they would have a bed but they will call the department with that update. I spoke to the hospitalist team who agreed to admission however, they requested I clarify with Dr. Carr about starting heparin or not. Dr. Carr recommended prophylactic lovenox but not heparin of which I ordered. I explained my physical exam findings as well as all test results to the patient. I answered all questions asked by the patient. Patient received Valium which, upon re- evaluation, she stated it helped her groin pain some but her chest pain persisted. Patient verbalized agreement and understanding with this treatment plan and admission. Differential Diagnosis Differential Diagnoses: The differential diagnosis associated with the presentation includes ACS STEMI NSTEMI Chest pain Atypical chest pain Groin strain Admission/Observation Consideration of admission/observation: Escalation of care including admission/observation considered Patient admitted as noted in the MDM Rationale portion of this note. Consult Healthcare Provider Management of the patient was discussed with: Hospitalist (agreed to admission as noted in the MDM Rationale portion of this note. ) and Bin Piler (spoke with the creche attendant team as noted in the MDM Rationale portion of this note. ) Lab Data [facility] Lab Attestation statement: I reviewed the patient's lab results. My interpretation of these results are in the MDM Rationale portion of this note. 10/20/24 08:53 10/20/24 08:53 Labs: Lab Results 10/20/24 10/20/24 10/20/24 Range/Units 08:53 09:44 10:32 WBC 11.6 H (4.8-10.8) X10*3/uL RBC 4.73 (4.20-5.50) X10*6/uL Hgb 10.3 L (12.0-16.0) g/dl Hct 34.7 L (37.0-47.0) % MCV 73.4 L (80.0-98.0) fL MCH 21.8 L (27.0-33.0) pg MCHC 29.7 L (31.0-35.0) g/dl RDW 15.4 (11.0-16.0) % Plt Count 232 (160-400) X10*3/uL MPV 11.6 (9.4-12.3) fL Immature Gran % (Auto) 0.4 (0.0-0.4) % Neut % (Auto) 73.5 H (45-73) % Lymph % (Auto) 21.6 (20-40) % [place] % (Auto) 4.0 (2-11) % Eos % (Auto) 0.2 (0-4) % Baso % (Auto) 0.3 (0-2) % Lymph # (Auto) 2.5 (1.2-4.9) X10*3/uL [place] # (Auto) 0.5 (0.1-1.2) X10*3/uL Eos # (Auto) 0.0 (0.0-0.4) X10*3/uL Baso # (Auto) 0.0 (0.0-0.2) X10*3/uL Abs Immat Gran (auto) 0.05 H (0.00-0.03) X10*3/uL Absolute Neuts (auto) 8.5 H (2.0-8.3) x10*3/uL Absolute Nucleated RBC 0.000 (0.0-0.012) X10*3/uL Nucleated RBC % (auto) 0.0 (0.0-0.2) /100WBC D-Dimer High Sensitivty < 150 NG/ML Sodium 140 (135-145) mmol/L Potassium 3.2 L (3.3-5.1) mmol/L Chloride 109 H (96-108) mmol/L Carbon Dioxide 25 (22-29) mmol/L Anion Gap 9 L (12-20) BUN 10 (9-16) mg/dL Creatinine 0.68 (0.5-1.4) mg/dL Estim Creat Clear Calc 129.3 Estimated GFR > 60 Random Glucose 122 H (60-115) mg/dL Calcium 8.3 L (8.4-10.2) mg/dL Total Bilirubin 0.1 (0.0-1.0) mg/dL AST 18 (5-31) U/L ALT 22 (0-31) U/L Alkaline Phosphatase 75 (39-117) U/L Troponin I High Sens 28.0 H D 34.2 H (<3.5-17.0) ng/L Total Protein 6.8 (6.5-8.0) g/dL Albumin 3.6 (3.5-5.0) g/dL Independent Interpretation I performed an independent interpretation of an: EKG and Plain X-Ray Interpretation: My interpretation is in agreement with the radiologist's impression of this imaging study. L EXAMINATION: XR CHEST 2 VIEWS HISTORY: chest pain COMPARISON: Comparison is made with the prior examination dated 10/11/2024. FINDINGS: PA and lateral views of the chest are submitted. The lungs are expanded and clear. There is no pleural effusion, pneumothorax, or pulmonary vascular congestion. The heart is normal in size. The bones are intact. XR/XR chest 2V IMPRESSION: No acute cardiopulmonary abnormality. Electronically signed by: Ishmael Dior MD 10/20/2024 10:00 AM EDT RP Dictated By: Ishmael Dior MD Signed By: Electronically signed by Ishmael Dior MD 10/20/24 1000 Vent. Rate: 66 BPM Atrial Rate: 66 BPM P-R Int: 126 ms QRS Dur: 86 ms QT Int: 400 ms P-R-T Axes: 24 25 17 degrees QTcB Int: 419 ms Normal sinus rhythm Cannot rule out Anterior infarct (cited on or before 27-Apr-2023) When compared with ECG of 11-Oct-2024 22:26 T wave inversion now evident in Anterior leads DD/ [id number] Radiology Impression Discussion of test interpretation with radiology: I have reviewed the radiologist's reading. Chronic Conditions Patient?s care impacted by: Hypertension Critical Care Time Critical Care Time Critical Care Time: Yes Total Critical Care Time: 36 Attestation: I spent 36 minutes of Critical Care Time with this patient. This does not include time spent on separately reported billable procedures. Discharge Plan Discharge Clinical Impression: Elevated troponin level, Chest pain, Groin strain Patient Disposition: Admitted As Inpatient
[2024-10-20 09:12] LABS: Alanine Aminotransferase 22 U/L (0-31); Albumin Level 3.6 g/dL (3.5-5.0); Alkaline Phosphatase 75 U/L (39-117); Anion Gap 9 (12-20); Aspartate Amino Transferase 18 U/L (5-31); Bilirubin Total 0.1 mg/dL (0.0-1.0); Blood Urea Nitrogen 10 mg/dL (9-16); Calcium 8.3 mg/dL (8.4-10.2); Carbon Dioxide 25 mmol/L (22-29); Chloride 109 mmol/L (96-108); Creatinine Clr Calc Pharmacy 129.3; Estimated Glomerular Filt Rate > 60; Glucose Random 122 mg/dL (60-115); Potassium 3.2 mmol/L (3.3-5.1); Sodium 140 mmol/L (135-145); Total Protein 6.8 g/dL (6.5-8.0)
[2024-10-20] MEDS: diazePAM 10 MG/2 ML CARTRIDGE 2.5 MG IVPUSH (09:49)
[2024-10-20] MEDS: Acetaminophen 1,000 MG/100 ML PIGGYBACK 400 MG IV (09:50)
--- OUTSIDE RECORDS SUMMARY | 2024-10-20 09:54 | XMS_ITS | Clinical Summary ---
Author Organization [facility] ity Address [address] [place] [address] Care Team Providers Care Pile Driving Technician Name Role Phone Unavailable Primary Care Provider Unavailabl e Surgical History Surgery Date Site/Laterality Comments LITHOTRIPSY N/A PROCEDURE: HISTORICAL LITHOTRIPSY Medical History Medical History Date Comments Essential (primary) hypertension DX:Essential (primary) hypertension Kidney stones DX:Kidney stones BMI 39.0-39.9,adult DX:BMI 39.0- 39.9,adult Social History Tobacco Use Types Packs/Day Years Used Date Smoking Tobacco: Never Smokeless Tobacco: Never Alcohol Use Standard Drinks/Week Comments Not Currently 0 (1 standard drink = 0.6 oz pur e alcohol) Comments Unknown Sex and Gender Information Value Date Recorded Sex Assigned at Not on file Legal Sex Female 12:38 PM EST Gender Identity Not on file Sexual Orientation Not on file Obstetrics History Plan of Treatment Health Maintenance Due Date Last Done Comments DTaP,Tdap,and Td Vaccines (1 - Tdap) 2010 Hepatitis B Vaccines (1 of 3 - 19+ 3-dose series) 2010 Cervical Cancer Screening: P ap Smear 2012 Depression Screening 06/18/2022 HIV Screening 06/18/2022 Hepatitis C Screening 06/18/2022 Social Influencers of Health Screening 06/18/2022 COVID-19 Vaccine ( - 2023-2 5 season) 2024 Influenza Vaccine (Season Ended) 2025 HIB Vaccines Aged Out No longer eligi ble based on patient's age to complete this topic HPV Vaccines Aged Out No longer eligi ble based on patient's age to complete this topic Hepatitis A Vaccines Aged Out No long er eligible based on patient's age to complete this topic IPV Vaccines Aged Out No longer eligi ble based on patient's age to complete this topic MMR Vaccines Aged Out No longer eligi ble based on patient's age to complete this topic Meningococcal ACWY Vaccine Aged Out N o longer eligible based on patient's age to complete this topic Meningococcal B Vacine Aged Out No lo nger eligible based on patient's age to complete this topic Pneumococcal Vaccine: Pediat rics (0 to 5 Years) and At-Risk Patients (6 to 64 Years) Aged Out No longer eligible b ased on patient's age to complete this topic RSV Immunization Patients Un judson 20 months Aged Out No longer eligible b ased on patient's age to complete this topic Varicella Vaccines Aged Out No longer eligible based on patient's age to complete this topic
--- OUTSIDE RECORDS SUMMARY | 2024-10-20 09:54 | XMS_ITS | Encounter Summary ---
Author Organization [facility] Address [address] [address] Phone Care Team Providers Care Pier Hand Name Role Phone Carrie Arias MD Primary Care Provider [phone] Encounter Details Date Type Department Care Team (Late Contact Info) Description 06/06/2024 Office Communication [facility] [address] [address] Morena Reyes ARNP [address] [address] Social History Tobacco Use Types Packs/Day Years Used Date Smoking Tobacco: Never Smokeless Tobacco: Never Alcohol Use Standard Drinks/Week Comments Never 0 (1 standard drink = 0.6 oz pur e alcohol) Comments Unknown Sex and Gender Information Value Date Recorded Sex Assigned at Not on file Legal Sex Female 2:35 PM EDT Gender Identity Not on file Sexual Orientation Not on file documented as of this encounter Plan of Treatment Upcoming Encounters Date Type Department Care Team (Late st Contact Info) Description 10/21/2024 1:15 PM EDT Office Visit [facility] [address] [phone] Morena Reyes ARNP [address] [address] documented as of this encounter Visit Diagnoses Not on filedocumented in this encounter Care Teams Pier Hand Relationship Specialty Start Date End Date Carrie Arias MD [address] [place] [address] PCP - General Family Medicine 09/29/23 documented as of this encounter
--- OUTSIDE RECORDS SUMMARY | 2024-10-20 09:54 | XMS_ITS | Clinical Summary ---
Author Organization [facility] Address [address] [address] Phone Care Team Providers Care Clinical Supervisor Name Role Phone Carrie Arias MD Primary Care Provider [phone] Allergies Active Allergy Reactions Criticality Noted Date Comments Gadolinium High 03/29/2023 Other Reaction(s): Angina Pt states she has had episodes of nausea and vomiting during prior injections of gadolinium. She had one episode of chest pain with injection of gadolinium. Hydromorphone High 03/29/2023 Other Reaction(s): Angina, severe chest pain Iodinated Contrast Media 11/03/2023 Ketorolac High 03/29/2023 Other Reaction(s): Angina Ketorolac Tromethamine Other (see comments) 11/03/2023 Lamotrigine Hives,Rash Low 03/29/2023 Morphine 09/29/2023 Pineapple Hives 11/03/2023 Tramadol 09/29/2023 Oxcarbazepine 09/29/2023 Medications acetaminophen (TYLENOL) 325 MG tablet Take by mouth every 6 (six) hours if needed for mild pain Active ergocalciferol 1.25 MG (75578 UT) capsule Take 50,000 Units by mouth 1 (one) time per week Active gabapentin (NEURONTIN) 300 MG capsule Take 300 mg by mouth in the morning and 300 mg in the evening and 300 mg before bedtime. Active carvedilol (COREG) 12.5 MG tablet Take 12.5 mg by mouth in the morning and 12.5 mg in the evening. Take with meals. Active spironolactone (Aldactone) 25 MG tabletIndication s:Essential (primary) hypertension,Oth er proteinuria Take 0.5 tablets (12.5 mg total) by mouth 1 (one) time each day 15 tablet 11 05/11/2024 05/11/20 25 Active Active Problems Problem Noted Date Diagnosed Date Essential (primary) hypertension 09/29/2023 Intracranial meningioma 09/29/2023 Obesity 09/29/2023 Sleep apnea 09/29/2023 Cervico-occipital neuralgia 09/29/2023 Stone in kidney 09/29/2023 Insomnia 09/29/2023 Prediabetes 09/29/2023 Proteinuria 09/29/2023 Encounters Date Type Department Care Team Description 09/27/2024 Office Communication [facility] [address] [address] Citlali Koroma from Last 3 Months Family History Medical History Relation Comments Hypertension Brother Hypertension Father Stroke Father Heart disease Mother Hypertension Mother Kidney disease Mother Diabetes Sister Relation Status Comments Brother Father Mother Sister Social History Tobacco Use Types Packs/Day Years Used Date Smoking Tobacco: Never Smokeless Tobacco: Never Tobacco Cessation:Counseling Given: Not Answered Alcohol Use Standard Drinks/Week Comments Never 0 (1 standard drink = 0.6 oz pur e alcohol) Comments Unknown Sex and Gender Information Value Date Recorded Sex Assigned at Not on file Legal Sex Female 2:35 PM EDT Gender Identity Not on file Sexual Orientation Not on file Last Filed Vital Signs Vital Sign Reading Time Taken Comments Blood Pressure 124/80 05/11/2024 10:08 AM EDT Pulse 90 05/11/2024 10:08 AM EDT Temperature - - Respiratory Rate - - Oxygen Saturation - - Inhaled Oxygen Concentration - - Weight 95.7 kg (211 lb) 05/11/2024 10:08 AM EDT Height - - Body Mass Index - - Plan of Treatment Upcoming Encounters Date Type Department Care Team (Late st Contact Info) Description 10/21/2024 1:15 PM EDT Office Visit [facility] [address] [address] Morena Reyes ARNP [address] [address] Health Maintenance Due Date Last Done Comments Pneumococcal Vaccine: Pediat rics (0 to 5 Years) and At-Risk Patients (6 to 64 Years) (1 of 2 - PCV) 1997 Diabetes: Hemoglobin A1C 11/03/2023 Diabetes: Ophthalmology Exam 11/03/2023 Diabetes: Pedal Pulse Checked 11/03/2023 Diabetes: Sensory Foot Exam 11/03/2023 Diabetes: Visual Foot Exam 11/03/2023 Influenza Vaccine (Season Ended) 2025 04/14/2023, 04/26/2022, 05/16/2021, Additional history exists Hepatitis B Vaccine Completed 09/01/1996, 05/19/1996, 09/18/1992 Procedures Procedure Name Priority Date/Time Associated Diagnosis Comments URINE ALBUMIN / CREATININE RATIO Routine 10/05/2024 11:13 AM EDT PROTEIN / CREATININE RATIO, URINE Routine 10/05/2024 11:13 AM EDT BASIC METABOLIC PANEL Routine 10/05/2024 11:13 AM EDT from Last 3 Months Results * Protein, Total, Random Urine w/Creatinine (Protein/Creat Ratio) (10/05/2024 11:13 AM EDT) Creatinine, Ur 237.6 Not Estab. mg/dL [facility] Protein, Ur 37.1 Not Estab. mg/dL [facility] Urine Protein/Creatin ine Ratio 156 0 - 200 mg/g creat [facility] 10/05/2024 11:1 3 AM EDT 10/05/2024 us Morena RODAS LAB URINE ORDERABLES Final Result [facility] [address] [place] [address] * (ABNORMAL) Urine Albumin / Creatinine Ratio (10/05/2024 11:13 AM EDT) Pathologist [facility] Albumin, Urine 138.2 Not Estab. ug/mL [facility] Albumin/Creatin ine Ratio 58(H) 0 - 29 mg/g creat [facility] Comment: ? Normal: ?0 - ??29 ? Moderately increased: 30 - 300 ? Severely increased: ? >300 10/05/2024 11:1 3 AM EDT 10/05/2024 Morena Reyes [facility] LAB URINE ORDERABLES Final Result [facility] [address] [place] [address] * Basic Metabolic Panel (10/05/2024 11:13 AM EDT) Pathologist [facility] Glucose 83 70 - 99 mg/dL [facility] BUN 7 6 - 20 mg/dL [facility] Creatinine 0.75 0.57 - 1.00 mg/dL [facility] eGFR CKD-EPI CR 2020 108 >59 mL/min/1.7 3 [facility] BUN/Creatinine Ratio 9 9 - 23 [facility] Sodium 141 134 - 144 mmol/L [facility] Potassium 4.5 3.5 - 5.2 mmol/L [facility] Chloride 101 96 - 106 mmol/L [facility] Bicarbonate (CO2) 28 20 - 29 mmol/L [facility] Calcium 9.4 8.7 - 10.2 mg/dL [facility] 10/05/2024 11:1 3 AM EDT 10/05/2024 Morena TALBOTP LAB BLOOD ORDERABLES Final Result [facility] [address] [place] [address] from Last 3 Months Insurance [place]ICAID [place] [facility] [place]OPE[place] [id number] Care Teams Clinical Supervisor Relationship Specialty Start Date End Date Carrie Arias MD [address] [place] [address] PCP - General Family Medicine 09/29/23
--- NOTE | 2024-10-20 10:08 | PM.CNCAR ---
History of Present Illness History of Present Illness Date of Service: 10/20/24 Chief complaint: Chest pain, shoulder pain Narrative: This is a cardiology consultation regarding chest pain and elevated troponins. Patient have . Apparently, she has had chest pains for several years. Over the last week or so, she has been having heaviness in the chest and also discomfort in the left arm. She came last week and then it seems that she was discharged and she returns back to the ER. Blood pressure is quite high. She states she has hypertension for which she takes Coreg. Her EKG was done and that shows subtle T inversions in the anterior leads. Troponins were slightly abnormal. Hence we are asked to see here. She describes the pain as intermittent and can happen any time. With or without exertion. She has not able to tell me if she has had any coronary workup or not. Review of Systems Review of Systems: Yes all other systems are reviewed and are negative Constitutional: Constitutional: Reports as per HPI and Reports no additional constitutional complaints Eyes: Eyes: Reports as per HPI and Denies no additional eye complaints ENT: Denies system reviewed and no additional complaints, except as documented and Reports as per HPI Cardiovascular: Cardiovascular: Reports as per HPI, Reports no additional cardiovascular complaints, Denies acrocyanosis, Denies cool extremities, Reports chest pain, Denies leg edema, Denies lightheadedness, Denies palpitations and Denies dyspnea Respiratory: Respiratory: Reports as per HPI, Denies no additional respiratory complaints and Denies dyspnea Gastrointestinal: Gastrointestinal: Reports as per HPI and Denies no additional gastrointestinal complaints Genitourinary: Genitourinary: Reports as per HPI Musculoskeletal: Musculoskeletal: Reports no additional musculoskeletal complaints and Reports as per HPI Integumentary/Breasts: Skin/Breast: Reports system reviewed and no additional complaints, except as docu Neurologic: Reports system reviewed and no additional complaints, except as documented and Reports as per HPI Psychiatric: Psychiatric: Reports no additional psychiatric complaints and Reports as per HPI Endocrine: Endocrine: Reports no additional endocrine complaints, Reports as per HPI and Denies palpitations Hematologic/Lymphatic: Hematologic/Lymphatic: Reports no additional hematologic/lymphatic complaints and Reports as per HPI Allergic/Immunologic: Allergic/Immunologic: Reports no additional allergic/immunologic complaints and Reports as per HPI [facility] Past Medical History Medical History (Updated 10/20/24 @ 10:23 by Roberto Carr MD) Essential hypertension Migraine Chest pain Family History Pertinent family history: No pertinent family history Social History Social History Alcohol intake: never Patient Tobacco Use Status: Never used Tobacco Advance Directives: No Advance Directives Information Provided: Yes Do you have a plan to hurt others: No Plan Meds Allergies Allergy/AdvReac Type Severity Reaction Status Date / Time hydromorphone [From DILAUDID] Allergy Unknown RASH Verified 10/20/24 08:44 lamotrigine [From LAMICTAL] Allergy Unknown RASH Verified 10/20/24 08:44 morphine [MORPHINE] Allergy Unknown RASH Verified 10/20/24 08:44 pineapple [PINEAPPLE] Allergy Unknown HIVES Verified 10/20/24 08:44 Iodinated Contrast Media Allergy Chest Pain Verified 10/20/24 08:45 [Contrast Dye] ketorolac [From Toradol] AdvReac Chest Pain Verified 10/20/24 08:44 Physical Exam Vital Signs: Vital Signs: Last Vital Signs Temp 98.4 F 10/20/24 08:42 Pulse 78 10/20/24 08:42 Resp 20 10/20/24 08:42 BP 169/104 H 10/20/24 08:42 Pulse Ox 99 10/20/24 08:42 O2 Del Method Room Air 10/20/24 08:42 BMI result Body Mass Index 39.9 Const: General: comfortable and no acute distress Orientation/consciousness: patient oriented x3 HEENT: Other: Unremarkable Head: Yes normal to inspection Neck: Neck: Yes normal visual inspection Chest: Chest palpation & inspection: normal inspection of the chest Resp: Auscultation: clear to auscultation bilaterally Cardio: Palpation: normal PMI Heart sounds: S1 normal heart sound present, S2 normal heart sound present, no gallops, no murmurs and no rubs GI: Palpation (GI): Soft to palpation Back/Spine/Pelvis: Other: unremarkable Skin: General skin exam: no rashes or lesions noted Neuro: General: patient oriented x3 Extrem: General: Yes normal to inspection Psych: Mental Status: mental status grossly normal Objective Labs and Meds 10/20/24 08:53 10/20/24 08:53 Lab results: Laboratory Results - last 24 hr 10/20/24 08:53 WBC 11.6 H RBC 4.73 Hgb 10.3 L Hct 34.7 L MCV 73.4 L MCH 21.8 L MCHC 29.7 L RDW 15.4 Plt Count 232 MPV 11.6 Immature Gran % (Auto) 0.4 Neut % (Auto) 73.5 H Lymph % (Auto) 21.6 [place] % (Auto) 4.0 Eos % (Auto) 0.2 Baso % (Auto) 0.3 Lymph # (Auto) 2.5 [place] # (Auto) 0.5 Eos # (Auto) 0.0 Baso # (Auto) 0.0 Abs Immat Gran (auto) 0.05 H Absolute Neuts (auto) 8.5 H Absolute Nucleated RBC 0.000 Nucleated RBC % (auto) 0.0 Sodium 140 Potassium 3.2 L Chloride 109 H Carbon Dioxide 25 Anion Gap 9 L BUN 10 Creatinine 0.68 Estim Creat Clear Calc 129.3 Estimated GFR > 60 Random Glucose 122 H Calcium 8.3 L Total Bilirubin 0.1 AST 18 ALT 22 Alkaline Phosphatase 75 Troponin I High Sens 28.0 H D Total Protein 6.8 Albumin 3.6 ECG Interpretation: EKG with underlying sinus rhythm at 66/Min; anterior T inversions. Imaging Radiologist's impression: Impressions Chest X-Ray 10/20/24 09:30 IMPRESSION: No acute cardiopulmonary abnormality. Electronically signed by: Ishmael Dior MD 10/20/2024 10:00 AM EDT RP Assessment and Plan (1) Chest pain: Status: Acute (2) Elevated troponin level: Status: Acute (3) Essential hypertension: Status: Acute Plan In the EKG, underlying sinus rhythm with subtle T inversions in the anterior leads. Seems a change compared to the prior EKG from October 11. High sensitivity troponin levels are 28 and 34. Last week, they were 15 and 16. Blood pressure is 169/104 mm Hg. Unclear if it is demand related chest pain from uncontrolled blood pressure or if she has truly any coronary etiology. We will discuss with her own geospatial extractor analysis . At the time, she can get her usual dose of Coreg that she takes at home. If that does not bring blood pressure down, add amlodipine. Obtain echocardiogram. We will decide on further workup based on discussion with her geospatial extractor analysis. D/w ER provider. Procedures Date of Service Date of Service: 10/20/24
[2024-10-20 10:12] LABS: Troponin-I High Sensitivity 34.2 ng/L (<3.5-17.0)
[2024-10-20 10:57] LABS: D Dimer High Sensitivity < 150 NG/ML
[2024-10-20] MEDS: carvediloL 25 MG TABLET PO ×2 (11:03→21:27)
--- NOTE | 2024-10-20 11:34 | PC.NURSE ---
RN to RN report given to LINDSEY Fonseca. Marian given opportunity for questions and all questions answered to satisfaction. Care of Pt relinquished to LINDSEY Fonseca at [phone]
[2024-10-20] MEDS: amLODIPine Besylate 5 MG TABLET PO (13:40)
[2024-10-20] MEDS: Aspirin 81 MG TAB.CHEW 324 MG PO (13:40)
[2024-10-20] MEDS: Potassium Chloride ER 20 MEQ TAB.ER.PRT PO (15:56)
[2024-10-20] MEDS: Enoxaparin Sodium 100 MG/ML SYRINGE SUBCUT (15:56)
--- NOTE | 2024-10-20 16:11 | PHA.MEDREC ---
Addendum entered by Hosea Robbins [facility] 10/20/24 16:34: med rec reviewed Original Note: Pharmacy Consult ? Medication Reconciliation Pharmacy has completed the medication reconciliation. Spoke with patient and she confirmed her medications. Patient confirmed she has not started the Amoxicillin or Prednisone that was prescribed to her on 10/18. She confirmed her Dr stopped her Bupropion and Spironolactone due to fining her blood pressure was going all over the place while taking these medications. She stated she never started the Dicyclomine due to fining out she could not breast feed while on it. She stated she was still taking Gabapentin 300mg tabs 1 three times a day and stated she fills them at [facility] on [address]; I called them and they confirmed she has not gotten that from them since February 2024 for 30 days. The patient confirmed her Vitamin D2 once a week on Sundays and states she last took it 2 Sundays ago. She confirmed she took her Carvedilol this morning @0430 and everything else yesterday.
--- NOTE | 2024-10-20 16:53 | PM.IMHP ---
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 She came last week and then it seems that she was discharged and she returns back to the ER. Blood pressure is quite high. She states she has hypertension for which she takes Coreg. Her transfer pumper is .Lab imaging EKG reviewed: H&H stable around 10.3 range, BMP showed mild hypokalemia 3.2, EKG: subtle T inversions in the anterior leads, troponin mildly elevated in 30s range. Chest x-ray negative. She said she never had any cardiac workup. 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 She has coming appointment in [facility]. In addition patient also intermittent history of question hematuria with kidney stones, she denies current hematuria. Denies any shortness of breath or fever or chills or dizziness or blurry vision or headache or any abdominal pain. Review of Systems Review of Systems: as above. Yes all other systems are reviewed and are negative [facility] Medical History Essential hypertension Migraine Chest pain Social History Alcohol intake: never Patient Tobacco Use Status: Never used Tobacco Advance Directives: No Advance Directives Information Provided: Yes Do you have a plan to hurt others: No Plan Meds Allergies Allergy/AdvReac Type Severity Reaction Status Date / Time hydromorphone [From DILAUDID] Allergy Unknown RASH Verified 10/20/24 08:44 lamotrigine [From LAMICTAL] Allergy Unknown RASH Verified 10/20/24 08:44 morphine [MORPHINE] Allergy Unknown RASH Verified 10/20/24 08:44 pineapple [PINEAPPLE] Allergy Unknown HIVES Verified 10/20/24 08:44 Iodinated Contrast Media Allergy Chest Pain Verified 10/20/24 08:45 [Contrast Dye] ketorolac [From Toradol] AdvReac Chest Pain Verified 10/20/24 08:44 perflutren AdvReac Back Pain Verified 10/20/24 13:54 Active Medications: Current Medications Acetaminophen (Acetaminophen 325 Mg Tablet) 650 mg PO Q6H PRN PRN Reason: Pain, Mild 1-3,fever,headache Calcium Carbonate (Calcium Carbonate 750 Mg Tab.Chew) 750 mg PO Q4H PRN PRN Reason: Heartburn Magnesium Hydroxide (Milk Of Magnesia 30 Ml Oral.Susp) 30 ml PO DAILY PRN PRN Reason: Constipation Melatonin (Melatonin 3 Mg Tablet) 6 mg PO BEDTIME PRN PRN Reason: Insomnia Sodium Chloride (0.9 % Sodium Chloride Flush 3 Ml Syringe) 3 ml IVFLUSH QSHIFT [facility] Last Admin: 10/20/24 16:00 Dose: Not Given Home Medications ?Medication ?Instructions ?Recorded ?Confirmed ?Last Taken ?Type acetaminophen 500 mg tablet 500 - 1,000 mg PO Q6H PRN Pain 10/20/24 10/20/24 Unknown History carvedilol 25 mg tablet 25 mg PO BID 10/20/24 10/20/24 10/20/24 04:30 History dicyclomine 10 mg capsule 10 mg PO QID PRN cramps 10/20/24 10/20/24 Unknown History ergocalciferol (vitamin D2) 1,250 1,250 mcg PO KENNEY 10/20/24 10/20/24 10/10/24 History mcg (50,000 unit) capsule gabapentin 300 mg capsule 300 mg PO TID 10/20/24 10/20/24 10/19/24 History hydrocortisone 2.5 % topical cream 1 appl topical BID 10/20/24 10/20/24 10/19/24 History Physical Exam Vital Signs and Narrative: Vital Signs: Last Vital Signs Temp 98.3 F 10/20/24 16:21 Pulse 72 10/20/24 16:44 Resp 14 10/20/24 16:21 BP 148/90 H 10/20/24 16:44 Pulse Ox 99 10/20/24 16:21 O2 Del Method Room Air 10/20/24 16:21 BMI result Body Mass Index 39.9 Appearance: Alert.? Oriented X3.? cvs: rrr, [id number]. res: clear to auscultation ,no rhonchii or wheezing abd: no rebound or guarding ,nt, bs present. ext pulses present , no cyanosis . neuro: axo3 , nonfocal. Results Labs 10/20/24 08:53 10/20/24 08:53 Labs: Laboratory Results - last 24 hr 10/20/24 10/20/24 08:53 10:32 MCV 73.4 L MCH 21.8 L MCHC 29.7 L RDW 15.4 Plt Count 232 MPV 11.6 Immature Gran % (Auto) 0.4 Neut % (Auto) 73.5 H Lymph % (Auto) 21.6 [place] % (Auto) 4.0 Eos % (Auto) 0.2 Baso % (Auto) 0.3 Lymph # (Auto) 2.5 [place] # (Auto) 0.5 Eos # (Auto) 0.0 Baso # (Auto) 0.0 Abs Immat Gran (auto) 0.05 H Absolute Neuts (auto) 8.5 H Absolute Nucleated RBC 0.000 Nucleated RBC % (auto) 0.0 D-Dimer High Sensitivty < 150 Anion Gap 9 L Estim Creat Clear Calc 129.3 Estimated GFR > 60 Random Glucose 122 H Calcium 8.3 L Total Bilirubin 0.1 AST 18 ALT 22 Alkaline Phosphatase 75 Total Protein 6.8 Albumin 3.6 Imaging Radiologist's Impressions: Impressions Chest X-Ray 10/20/24 09:30 IMPRESSION: No acute cardiopulmonary abnormality. Electronically signed by: Ishmael Dior MD 10/20/2024 10:00 AM EDT RP Assessment and Plan (1) Chest pain: Qualifiers: Chest pain type: unspecified Qualified Code(s): R07.9 - Chest pain, unspecified Status: Acute (2) Essential hypertension: Status: Acute Plan 34y/o f history of HTN, 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 chest pain/elevated troponins :concern of nstemi mild troponin elevation tele monitering ed d/w with cardiology:added asa ,bb, lovenox lipid panel, htn control htn : continue coreg ,added amlodipine. hx of brain tumer since age of 12 : Currently asymptomatic she has follow up appointment [facility]. d/w neurology dr posey -brain tumyara from childhood. ok to use ac as needed for nsetmi. History of kidney stones: Currently denies any hematuria or pain. Patient will benefit from 2 midnight stays since patient has concern of NSTEMI and uncontrolled hypertension: Patient will need close tele monitoring as well as symptomatic monitoring patient is already accepted to [facility] for further cardiac workup. Waiting for bed. Above management discussed with the patient detail length she understand and in agreement with the above plan, time spent 70 minute. Patient full code. Quality Stroke Does the patient have a stroke diagnosis?: No VTE Prior VTE?: No VTE Risk Level:: Medical - moderate - high VTE Device Contraindication: N/A - Device Ordered VTE Drug Contraindication: N/A - Med Ordered
[2024-10-20 17:06] LABS: Hematocrit 35.8 % (37.0-47.0); Hemoglobin 10.7 g/dl (12.0-16.0); Mean Corpuscular HGB Conc 29.9 g/dl (31.0-35.0); Mean Corpuscular Hemoglobin 21.5 pg (27.0-33.0); Mean Platelet Volume 11.6 fL (9.4-12.3); Platelet Count 201 X10*3/uL (160-400); Red Blood Count 4.97 X10*6/uL (4.20-5.50); Red Cell Distribution Width 15.4 % (11.0-16.0)
[2024-10-20 17:19] LABS: PLT ABN DIST 1
[2024-10-20] MEDS: Omeprazole 20 MG CAPSULE.DR PO (17:41)
[2024-10-20 17:46] LABS: Prothrombin Time 11.4 SEC (10.9-12.4)
[2024-10-20 17:49] LABS: Partial Thromboplastin Time 30.2 SEC (26.0-36.8)
[2024-10-20] MEDS: Acetaminophen 325 MG TABLET 650 MG PO (21:25)
[2024-10-20] MEDS: Melatonin 3 MG TABLET 6 MG PO (21:26)
[2024-10-20] MEDS: Gabapentin 300 MG CAPSULE PO (21:27)
[2024-10-21] MEDS: Enoxaparin Sodium 100 MG/ML SYRINGE SUBCUT (02:54)
[2024-10-21] MEDS: 0.9 % Sodium Chloride Flush 3 ML SYRINGE IVFLUSH ×2 (02:56→09:02)
[2024-10-21 03:05] VITALS: BP 120/76; PULSE 71; RESP 18; TEMP 36.7; O2SAT 98
[2024-10-21] MEDS: Omeprazole 20 MG CAPSULE.DR PO (05:56)
[2024-10-21 06:11] LABS: Hemoglobin 10.9 g/dl (12.0-16.0); Mean Corpuscular Volume 72.2 fL (80.0-98.0); PLT ABN DIST 1
[2024-10-21 06:12] LABS: Hematocrit 36.3 % (37.0-47.0); Mean Corpuscular Hemoglobin 21.7 pg (27.0-33.0); Mean Platelet Volume 11.8 fL (9.4-12.3); Platelet Count 193 X10*3/uL (160-400); Red Blood Count 5.03 X10*6/uL (4.20-5.50); Red Cell Distribution Width 15.2 % (11.0-16.0); White Blood Count 8.4 X10*3/uL (4.8-10.8)
[2024-10-21 06:25] LABS: Cholesterol 154 mg/dL (<200); HDL Cholesterol 40 mg/dL (>40); LDL Cholesterol Calculated 97 mg/dL (<100); Triglycerides 86 mg/dL (<150)
[2024-10-21 07:30] VITALS: BP 146/92; PULSE 74; RESP 16; TEMP 36.3; O2SAT 98
--- NOTE | 2024-10-21 07:35 | P.DS_ITS ---
DS: Providers Provider Date of Service: 10/21/24 Date of admission: 10/20/24 15:38 Date of discharge: 10/21/24 Primary care physician: Carrie Arias MD Admitting clinician: Ciara Ingram Attending physician on admission: Ciara Ingram Consults: 10/20/24 09:55 Consult to Cardiology Stat Consulting Provider: [facility] Reason for consultation: chest pain, elevated trop, elevated blood pressure 10/20/24 15:45 Consult to Cardiology Routine Consulting Provider: [facility] Reason for consultation: chest pain ,elevated troponins Has provider been notified: No Attending physician on discharge: Ciara Ingram Discharging clinician: Ciara Ingram DS: Diagnosis Discharge Diagnosis (1) Chest pain: Status: Acute (2) Essential hypertension: Status: Acute DS: Summary Hospital Course Hospital Course: HPI:34y/o f history of HTN, 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 She came last week and then it seems that she was discharged and she returns back to the ER. Blood pressure is quite high. She states she has hypertension for which she takes Coreg. Her economic development director is .Lab imaging EKG reviewed: H&H stable around 10.3 range, BMP showed mild hypokalemia 3.2, EKG: subtle T inversions in the anterior leads, troponin mildly elevated in 30s range. Chest x-ray negative. She said she never had any cardiac workup. 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 She has coming appointment in [facility]. In addition patient also intermittent history of question hematuria with kidney stones, she denies current hematuria. Denies any shortness of breath or fever or chills or dizziness or blurry vision or headache or any abdominal pain. Hospital course: 34y/o f history of HTN, 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 chest pain/elevated troponins :concern of nstemi mild troponin elevation tele monitering ed d/w with cardiology:added asa ,bb, lovenox, echo completed :The left ventricular systolic function is normal. The calculated ejection fraction is 60% by biplane method. - Small area in the apical septum /apical inferior wall appears akinetic (vs cleft vs artifactual). No obvious valvular pathology seen on this study. lipid panel, htn control,patient is accepted to [facility] for further cardiac workup. Waiting for bed. htn : continue coreg ,added amlodipine. 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 d/w neurology dr posey -brain tumer from childhood. ok to use ac as needed for nsetmi. History of kidney stones: Currently denies any hematuria or pain. plan: Patient is on aspirin, beta-kiana and Lovenox, consider checking lipid panel. need further cardiac workup . Above management discussed with the patient in detail length she understand and in agreement with the above plan, time spent 40min. Time Attestation Total time managing care of this patient today: 40 mintues. Discharge Coordination Time (in mins): 40 min Quality: Safe Use of Opioids Does Pt have an Active Cancer Diagnosis on the Problem List?: No Quality: Stroke Does the patient have a stroke diagnosis?: No Physical Exam Vital Signs: Vital Signs: Last Vital Signs Temp 97.4 F 10/21/24 07:30 Pulse 74 10/21/24 07:30 Resp 16 10/21/24 07:30 BP 146/92 H 10/21/24 07:30 Pulse Ox 98 10/21/24 07:30 O2 Del Method Room Air 10/21/24 07:30 BMI result Body Mass Index 39.4 Appearance: Alert.? Oriented X3.? cvs: rrr, [id number]. res: clear to auscultation ,no rhonchii or wheezing abd: no rebound or guarding ,nt, bs present. ext pulses present , no cyanosis . neuro: axo3 , nonfocal. DS: Data Data Completed and Pending Labs on day of discharge: Laboratory Results - last 24 hr 10/20/24 10/20/24 10/20/24 08:53 09:44 10:32 WBC 11.6 H RBC 4.73 Hgb 10.3 L Hct 34.7 L MCV 73.4 L MCH 21.8 L MCHC 29.7 L RDW 15.4 Plt Count 232 MPV 11.6 Immature Gran % (Auto) 0.4 Neut % (Auto) 73.5 H Lymph % (Auto) 21.6 [place] % (Auto) 4.0 Eos % (Auto) 0.2 Baso % (Auto) 0.3 Lymph # (Auto) 2.5 [place] # (Auto) 0.5 Eos # (Auto) 0.0 Baso # (Auto) 0.0 Abs Immat Gran (auto) 0.05 H Absolute Neuts (auto) 8.5 H Absolute Nucleated RBC 0.000 Nucleated RBC % (auto) 0.0 PT INR APTT D-Dimer High Sensitivty < 150 Sodium 140 Potassium 3.2 L Chloride 109 H Carbon Dioxide 25 Anion Gap 9 L BUN 10 Creatinine 0.68 Estim Creat Clear Calc 129.3 Estimated GFR > 60 Random Glucose 122 H Calcium 8.3 L Total Bilirubin 0.1 AST 18 ALT 22 Alkaline Phosphatase 75 Troponin I High Sens 28.0 H D 34.2 H Total Protein 6.8 Albumin 3.6 Triglycerides Cholesterol LDL Cholesterol, Calc HDL Cholesterol 10/20/24 10/21/24 16:55 05:48 WBC 9.0 8.4 RBC 4.97 5.03 Hgb 10.7 L 10.9 L Hct 35.8 L 36.3 L MCV 72.0 L 72.2 L MCH 21.5 L 21.7 L MCHC 29.9 L 30.0 L RDW 15.4 15.2 Plt Count 201 193 MPV 11.6 11.8 Immature Gran % (Auto) Neut % (Auto) Lymph % (Auto) [place] % (Auto) Eos % (Auto) Baso % (Auto) Lymph # (Auto) [place] # (Auto) Eos # (Auto) Baso # (Auto) Abs Immat Gran (auto) Absolute Neuts (auto) Absolute Nucleated RBC 0.000 0.000 Nucleated RBC % (auto) 0.0 0.0 PT 11.4 INR 1.0 APTT 30.2 D-Dimer High Sensitivty Sodium Potassium Chloride Carbon Dioxide Anion Gap BUN Creatinine Estim Creat Clear Calc Estimated GFR Random Glucose Calcium Total Bilirubin AST ALT Alkaline Phosphatase Troponin I High Sens Total Protein Albumin Triglycerides 86 Cholesterol 154 LDL Cholesterol, Calc 97 HDL Cholesterol 40 L Imaging Chest x-ray: Radiologist's impression: ITS Impressions Chest X-Ray 10/20/24 09:30 IMPRESSION: No acute cardiopulmonary abnormality. Electronically signed by: Ishmael Dior MD 10/20/2024 10:00 AM EDT RP echo completed - The left ventricular systolic function is normal. The calculated ejection fraction is 60% by biplane method. - Small area in the apical septum /apical inferior wall appears akinetic (vs cleft vs artifactual). - No obvious valvular pathology seen on this study. Discharge Plan Discharge Anticipated Discharge Date/Time: 10/21/24 07:31 Patient Disposition: Xfer Acute Care Hospital Discharge Diagnosis: chest pain Referrals: [facility] [Outside] - 1 Week Carrie Arias MD [Primary Care Provider] - 1 Week Discharge Medications: New omeprazole 20 mg Capsule,Delayed Release(Dr/Ec) 20 mg PO DAILY@0630 Qty: 1 0RF enoxaparin 100 mg/mL Syringe 100 mg subcut Q12H Qty: 1 0RF aspirin 81 mg capsule 81 mg PO DAILY Qty: 1 0RF amlodipine 2.5 mg Tablet 2.5 mg PO DAILY Qty: 1 0RF Protocol: Hold for SBP< HOLD for SBP < : 90 Continued carvedilol 25 mg tablet 25 mg PO BID hydrocortisone 2.5 % cream 1 appl topical BID ergocalciferol (vitamin D2) 1,250 mcg (50,000 unit) capsule 1,250 mcg PO KENNEY dicyclomine 10 mg capsule 10 mg PO QID PRN (Reason: cramps) acetaminophen 500 mg Tablet 500 - 1,000 mg PO Q6H PRN (Reason: Pain) gabapentin 300 mg capsule 300 mg PO TID Discharge Orders: Discharge Order (Routine); Ordered 10/21/24 Ordered By: Ciara Ingram Diet: Advance to usual diet Activity on Discharge: As tolerated Stand Alone Forms: Patient Portal Discharge page Print Language: Australian Care Plan Goals: 34y/o f history of HTN, 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 chest pain/elevated troponins :concern of nstemi mild troponin elevation tele monitering ed d/w with cardiology:added asa ,bb, lovenox lipid panel, htn control patient is accepted to [facility] for further cardiac workup. Waiting for bed. htn : continue coreg ,added amlodipine. 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 d/w neurology dr posey -vanessa harrington from childhood. ok to use ac as needed for nsetmi. History of kidney stones: Currently denies any hematuria or pain. Health Concerns: As above. Plan of Treatment: As above. Assessment: As above.
[2024-10-21] MEDS: amLODIPine Besylate 2.5 MG TABLET PO (09:02)
[2024-10-21] MEDS: Gabapentin 300 MG CAPSULE PO (09:02)
[2024-10-21] MEDS: carvediloL 25 MG TABLET PO (09:02)
--- NOTE | 2024-10-21 09:03 | MHC.CM.PN ---
CM met with Patient at bedside. Patient lives in a house with her and 4 children, ranging in age from 1 year to 17 years. Patient is functionally independent and home/self care is her goal. CM has initiated and will follow for dc planning. PCP is Dr. Carrie Arias.
[2024-10-21 09:46] LABS: Anion Gap 9 (12-20); Blood Urea Nitrogen 12 mg/dL (9-16); Calcium 8.5 mg/dL (8.4-10.2); Carbon Dioxide 27 mmol/L (22-29); Chloride 107 mmol/L (96-108); Creatinine Clr Calc Pharmacy 138.6; Estimated Glomerular Filt Rate > 60; Glucose Random 83 mg/dL (60-115); Potassium 3.8 mmol/L (3.3-5.1); Sodium 139 mmol/L (135-145)
[2024-10-21] MEDS: Hydrocortisone 1 % Cream 28.35 GM TUBE 1 APPL TOPICAL (10:36)
[2024-10-21 11:17] VITALS: BP 121/82; PULSE 70; RESP 14; TEMP 36.8; O2SAT 98
--- NOTE | 2024-10-21 12:39 | PM.PNCARD ---
Subjective Subjective Date of Service: 10/21/24 Interval history: Seen and examined. She still has some low-grade pain but not as much as today. Blood pressure seems better. Review of Systems Review of Systems Yes all other systems are reviewed and are negative Constitutional: Reports as per HPI and Reports no additional constitutional complaints Eyes: Reports as per HPI and Denies no additional eye complaints Denies system reviewed and no additional complaints, except as documented and Reports as per HPI Cardiovascular: Reports as per HPI, Reports no additional cardiovascular complaints, Denies acrocyanosis, Denies cool extremities, Reports chest pain, Denies leg edema, Denies lightheadedness, Denies palpitations and Denies dyspnea Respiratory: Reports as per HPI, Denies no additional respiratory complaints and Denies dyspnea Gastrointestinal: Reports as per HPI and Denies no additional gastrointestinal complaints Genitourinary: Reports as per HPI Musculoskeletal: Reports no additional musculoskeletal complaints and Reports as per HPI Skin/Breast: Reports system reviewed and no additional complaints, except as docu Reports system reviewed and no additional complaints, except as documented and Reports as per HPI Psychiatric: Reports no additional psychiatric complaints and Reports as per HPI Endocrine: Reports no additional endocrine complaints, Reports as per HPI and Denies palpitations Hematologic/Lymphatic: Reports no additional hematologic/lymphatic complaints and Reports as per HPI Allergic/Immunologic: Reports no additional allergic/immunologic complaints and Reports as per HPI Physical Exam Vital Signs: Last Vital Signs Temp 98.2 F 10/21/24 11:17 Pulse 70 10/21/24 11:17 Resp 14 10/21/24 11:17 BP 121/82 10/21/24 11:17 Pulse Ox 98 10/21/24 11:17 O2 Del Method Room Air 10/21/24 11:17 BMI result Body Mass Index 39.4 Const General: comfortable and no acute distress Orientation/consciousness: patient oriented x3 HEENT Other: Unremarkable Head: Yes normal to inspection Neck Neck: Yes normal visual inspection Chest Chest palpation & inspection: normal inspection of the chest Resp Auscultation: clear to auscultation bilaterally Cardio Palpation: normal PMI Heart sounds: S1 normal heart sound present, S2 normal heart sound present, no gallops, no murmurs and no rubs GI Palpation (GI): Soft to palpation Back/Spine/Pelvis Other: unremarkable Skin General skin exam: no rashes or lesions noted Neuro General: patient oriented x3 Extrem General: Yes normal to inspection Psych Mental Status: mental status grossly normal Objective Labs and Meds 10/21/24 05:48 10/21/24 08:52 Lab results: Laboratory Results - last 24 hr 10/20/24 10/21/24 10/21/24 16:55 05:48 08:52 WBC 9.0 8.4 RBC 4.97 5.03 Hgb 10.7 L 10.9 L Hct 35.8 L 36.3 L MCV 72.0 L 72.2 L MCH 21.5 L 21.7 L MCHC 29.9 L 30.0 L RDW 15.4 15.2 Plt Count 201 193 MPV 11.6 11.8 Absolute Nucleated RBC 0.000 0.000 Nucleated RBC % (auto) 0.0 0.0 PT 11.4 INR 1.0 APTT 30.2 Sodium 139 Potassium 3.8 Chloride 107 Carbon Dioxide 27 Anion Gap 9 L BUN 12 Creatinine 0.63 Estim Creat Clear Calc 138.6 Estimated GFR > 60 Random Glucose 83 Calcium 8.5 Triglycerides 86 Cholesterol 154 LDL Cholesterol, Calc 97 HDL Cholesterol 40 L Progress Note: A&P Assessment and plan (1) Chest pain: Status: Acute (2) Elevated troponin level: Status: Acute (3) Essential hypertension: Status: Acute Plan In the EKG, underlying sinus rhythm with subtle T inversions in the anterior leads. Seems a change compared to the prior EKG from October 11. High sensitivity troponin levels are 28 and 34. Last week, they were 15 and 16. In the echocardiogram preserved LVEF. At the most apical part of the septum/apical inferior wall, seems akinetic. Could also be a cleft versus artifactual finding but not very clear. Overall, recurring visits to ER with chest pains of uncertain etiology with low-grade troponin leak and above finding on the echocardiogram. Recommend a coronary CTA for further evaluation. If coronaries are unremarkable, then she needs only treatment for hypertension. If she still gets chest pains, then consider workup for microvascular disease. Due to bed situation at [facility], transfers getting delayed. Hopefully, may happen today. If coronary CTA cannot be completed, then consider diagnostic catheterization. Time Spent With Patient Time: Total time managing care of this patient today ____ minutes. Progress Note: Quality Stroke Does the patient have a stroke diagnosis?: No Procedures Date of Service Date of Service: 10/21/24
--- NOTE | 2024-10-21 13:56 | MHC.CM.PN ---
Plan is for Patient to transfer to [facility].
== END 2024-10-21 14:34 | disposition short-term general hospital (02) | DRG 190 ==
LOC: HO.ED 09:03 → HO.EDOVER 15:54 → HO.IMC 19:09
PROVIDERS: Physician Assistant Medical; Admitting Provider Internal Medicine; Emergency Provider Emergency Medicine; PCP Family Medicine; Visit Provider Internal Medicine
DX: I21.4 Non-ST elevation (NSTEMI) myocardial infarction (principal); I10 Essential (primary) hypertension; Z87.442 Personal history of urinary calculi; Z79.899 Other long term (current) drug therapy
CPT/HCPCS: 36415; 71046; 80048; 80053; 80061; 84484; 85025; 85027; 85379; 85610; 85730; 93005; 93306; 99285; J0131; J1650; J3360; Q9957

== ENCOUNTER → 2024-10-20 09:03 | Outpatient (BNV) | payer MEDICAID, SELFPAY | PROVIDERS: Emergency Provider Emergency Medicine; PCP Family Medicine; Visit Provider Internal Medicine | DX: R07.9 Chest pain, unspecified (principal); R79.89 Other specified abnormal findings of blood chemistry; I10 Essential (primary) hypertension | CPT/HCPCS: 93010; 99223 ==

== ENCOUNTER → 2024-10-20 09:26 | Outpatient (BNV) | payer MEDICAID, SELFPAY | PROVIDERS: Emergency Provider Emergency Medicine; PCP Family Medicine; Visit Provider Radiology Diagnostic Radiology | DX: R07.9 Chest pain, unspecified (principal) | CPT/HCPCS: 71046 ==

== ENCOUNTER → 2024-10-20 15:38 | Outpatient (BNV) | payer MEDICAID, SELFPAY | PROVIDERS: Admitting Provider Internal Medicine; Emergency Provider Emergency Medicine; PCP Family Medicine; Visit Provider Internal Medicine | DX: I10 Essential (primary) hypertension (principal); R07.9 Chest pain, unspecified | CPT/HCPCS: 99222; 99239 ==

== ENCOUNTER 2024-12-03 23:41 | Emergency (ER) | payer MEDICAID, SELFPAY ==
--- NOTE | 2024-12-03 | ECG_ITS ---
Test Reason : CP Blood Pressure : */* mmHG Vent. Rate : 68 BPM Atrial Rate : 68 BPM P-R Int : 128 ms QRS Dur : 90 ms QT Int : 410 ms P-R-T Axes : 19 19 2 degrees QTcB Int : 435 ms Normal sinus rhythm Nonspecific T wave abnormality Abnormal ECG When compared with ECG of 20-Oct-2024 08:45, Nonspecific T wave abnormality has replaced inverted T waves in Anterior leads Referred By: Generic ED Physician Electronically Signed By: PARVIN ARCE MD
[2024-12-03 23:48] VITALS: BP 142/84; PULSE 71; RESP 16; TEMP 36.6; O2SAT 99; BMI 39.5
[2024-12-04 00:25] LABS: MANUAL DIFF FLAG NO
[2024-12-04 00:26] LABS: Basophils Percent Auto 0.3 % (0-2); Eosinophils Absolute Auto 0.1 X10*3/uL (0.0-0.4); Eosinophils Percent Auto 2.1 % (0-4); Hematocrit 33.4 % (37.0-47.0); Imm Gran Abs Auto 0.01 X10*3/uL (0.00-0.03); Imm Gran Pct Auto 0.2 % (0.0-0.4); Lymphocytes Absolute Auto 2.4 X10*3/uL (1.2-4.9); Lymphocytes Percent Auto 41.6 % (20-40); Mean Corpuscular HGB Conc 29.9 g/dl (31.0-35.0); Mean Corpuscular Hemoglobin 21.6 pg (27.0-33.0); Mean Corpuscular Volume 72.1 fL (80.0-98.0); Mean Platelet Volume 11.3 fL (9.4-12.3); Monocytes Absolute Auto 0.4 X10*3/uL (0.1-1.2); Monocytes Percent Auto 6.9 % (2-11); Neutrophils Absolute Auto 2.8 x10*3/uL (2.0-8.3); Neutrophils Percent Auto 48.9 % (45-73); Platelet Count 261 X10*3/uL (160-400); Red Blood Count 4.63 X10*6/uL (4.20-5.50); Red Cell Distribution Width 14.8 % (11.0-16.0); White Blood Count 5.8 X10*3/uL (4.8-10.8)
[2024-12-04 00:31] LABS: Appearance Urine Clear; Color Urine Yellow; Glucose Urine UA Negative (Negative); Leukocyte Esterase Urine Negative (Negative); Nitrite Urine Negative (Negative); Specific Gravity - Urine 1.025 (1.005-1.025); UMIC TRIGGER UACC YES; Urine Blood Small (1+) (Negative); Urine Ketones Trace mg/dL (Negative); Urine Protein 30 (1+) mg/dL (Neg-Trace)
[2024-12-04 00:41] LABS: Alanine Aminotransferase 12 U/L (0-31); Albumin Level 3.8 g/dL (3.5-5.0); Alkaline Phosphatase 81 U/L (39-117); Anion Gap 11 (12-20); Aspartate Amino Transferase 18 U/L (5-31); Bilirubin Total 0.1 mg/dL (0.0-1.0); Blood Urea Nitrogen 12 mg/dL (9-16); Carbon Dioxide 27 mmol/L (22-29); Chloride 107 mmol/L (96-108); Creatinine Clr Calc Pharmacy 134.6; Estimated Glomerular Filt Rate > 60; Glucose Random 119 mg/dL (60-115); Potassium 3.6 mmol/L (3.3-5.1); Sodium 141 mmol/L (135-145); Total Protein 7.2 g/dL (6.5-8.0)
[2024-12-04 00:45] LABS: Bacteria Urine None Seen (None Seen); Hyaline Casts Urine 0-2 /LPF (0-2); RBC Urine 0-2 /HPF (0-2); WBC Urine 0-5 /HPF (0-5)
[2024-12-04 00:46] LABS: Troponin-I High Sensitivity 19.8 ng/L (<3.5-17.0)
--- NOTE | 2024-12-04 01:49 | ED_ITS ---
HPI - General Adult General Chief complaint: General Medical Stated complaint: CP/Kidney Pain Time Seen by Provider: 12/04/24 01:47 Source: patient Mode of arrival: ambulatory Limitations: no limitations History of Present Illness ED Provider: HPI narrative: Patient's history of hypertension fibromyalgia with frequent chest pain had cardiac catheterization in 11/12 which was negative pain is in mid chest sharp in nature reproducible no shortness of breath , also complaining of bilateral flank pain without any dysuria frequency Related Data Home Medications ?Medication ?Instructions ?Recorded ?Confirmed acetaminophen 500 mg tablet 500 - 1,000 mg PO Q6H PRN Pain 10/20/24 10/20/24 carvedilol 25 mg tablet 25 mg PO BID 10/20/24 10/20/24 dicyclomine 10 mg capsule 10 mg PO QID PRN cramps 10/20/24 10/20/24 ergocalciferol (vitamin D2) 1,250 1,250 mcg PO KENNEY 10/20/24 10/20/24 mcg (50,000 unit) capsule gabapentin 300 mg capsule 300 mg PO TID 10/20/24 10/20/24 hydrocortisone 2.5 % topical cream 1 appl topical BID 10/20/24 10/20/24 Previous Rx's ?Medication ?Instructions ?Recorded amlodipine 2.5 mg tablet 2.5 mg PO DAILY #1 tab 10/21/24 aspirin 81 mg capsule 81 mg PO DAILY #1 cap 10/21/24 enoxaparin 100 mg/mL subcutaneous 100 mg subcut Q12H #1 mL 10/21/24 syringe omeprazole 20 mg capsule,delayed 20 mg PO DAILY@0630 #1 cap 10/21/24 release tramadol 50 mg tablet 50 mg PO Q8-10H PRN pain #15 tabs 12/04/24 Allergies Allergy/AdvReac Type Severity Reaction Status Date / Time hydromorphone [From DILAUDID] Allergy Unknown RASH Verified 12/03/24 23:50 lamotrigine [From LAMICTAL] Allergy Unknown RASH Verified 12/03/24 23:50 morphine [MORPHINE] Allergy Unknown RASH Verified 12/03/24 23:50 pineapple [PINEAPPLE] Allergy Unknown HIVES Verified 12/03/24 23:50 Iodinated Contrast Media Allergy Chest Pain Verified 12/03/24 23:50 [Contrast Dye] ketorolac [From Toradol] AdvReac Chest Pain Verified 12/03/24 23:50 perflutren AdvReac Back Pain Verified 12/03/24 23:50 Review of Systems 2 Review of Systems: Yes all other systems are reviewed and are negative [facility] Past Medical History Medical History Groin strain Essential hypertension Migraine Chest pain Social History Social History Household Members: Spouse and Children Housing: House Alcohol intake: never Comment: jose r Patient Tobacco Use Status: Never used Tobacco service: No Physical Exam ED Vital Signs: Vital Signs - 24 hr 12/03/24 23:48 12/04/24 02:42 Temperature 97.8 F 97.8 F Pulse Rate 71 76 Respiratory Rate 16 16 Blood Pressure 142/84 H 143/90 H Pulse Oximetry 99 97 Oxygen Delivery Method Room Air Room Air BMI result Body Mass Index 39.5 Appearance: Alert. Oriented X3. No acute distress. Eyes: PERRLA, No Nystagmus ENT: Pharynx normal. Oral Mucosa moist Neck: Normal inspection. Neck supple. CVS: Normal heart rate and rhythm. Pulses normal. Chest wall tenderness+ Respiratory: No respiratory distress. Equal air entry bilateral, no wheezing/rales/rhonchi Abdomen: Soft and nontender. Bowel sounds are present, no mass palpable, no CVA tenderness Skin: Skin warm and dry. Normal skin color. Normal skin turgor. Extremities: No lower extremity edema. No calf tenderness Neuro: Oriented X 3. No motor deficit. No sensory deficit.No cerebellar signs , cranial nerves II-XII intact Medications Administered Discontinued Medications Generic Name Dose Route Start Last Admin Trade Name Freq PRN Reason Stop Dose Admin Tramadol HCl 50 mg 12/04/24 02:13 12/04/24 02:36 Tramadol Hcl 50 Mg Tablet PO 12/04/24 02:14 50 mg ONCE ONE Administration Medical Decision Making Medical Decision Making [facility] Narrative: Patient with nonspecific chest pain without any ischemic changes in the EKG with recent cardiac catheterization 6 weeks ago was negative advised to follow up with PCP Lab Data [facility] Lab Attestation statement: I reviewed the patient's lab results. 12/04/24 00:20 12/04/24 00:20 Labs: Lab Results 12/04/24 12/04/24 Range/Units 00:20 00:24 WBC 5.8 (4.8-10.8) X10*3/uL RBC 4.63 (4.20-5.50) X10*6/uL Hgb 10.0 L (12.0-16.0) g/dl Hct 33.4 L (37.0-47.0) % MCV 72.1 L (80.0-98.0) fL MCH 21.6 L (27.0-33.0) pg MCHC 29.9 L (31.0-35.0) g/dl RDW 14.8 (11.0-16.0) % Plt Count 261 D (160-400) X10*3/uL MPV 11.3 (9.4-12.3) fL Immature Gran % (Auto) 0.2 (0.0-0.4) % Neut % (Auto) 48.9 (45-73) % Lymph % (Auto) 41.6 H (20-40) % [place] % (Auto) 6.9 (2-11) % Eos % (Auto) 2.1 (0-4) % Baso % (Auto) 0.3 (0-2) % Lymph # (Auto) 2.4 (1.2-4.9) X10*3/uL [place] # (Auto) 0.4 (0.1-1.2) X10*3/uL Eos # (Auto) 0.1 (0.0-0.4) X10*3/uL Baso # (Auto) 0.0 (0.0-0.2) X10*3/uL Abs Immat Gran (auto) 0.01 (0.00-0.03) X10*3/uL Absolute Neuts (auto) 2.8 (2.0-8.3) x10*3/uL Absolute Nucleated RBC 0.000 (0.0-0.012) X10*3/uL Nucleated RBC % (auto) 0.0 (0.0-0.2) /100WBC Sodium 141 (135-145) mmol/L Potassium 3.6 (3.3-5.1) mmol/L Chloride 107 (96-108) mmol/L Carbon Dioxide 27 (22-29) mmol/L Anion Gap 11 L (12-20) BUN 12 (9-16) mg/dL Creatinine 0.65 (0.5-1.4) mg/dL Estim Creat Clear Calc 134.6 Estimated GFR > 60 Random Glucose 119 H (60-115) mg/dL Calcium 9.0 (8.4-10.2) mg/dL Total Bilirubin 0.1 (0.0-1.0) mg/dL AST 18 (5-31) U/L ALT 12 (0-31) U/L Alkaline Phosphatase 81 (39-117) U/L Troponin I High Sens 19.8 H (<3.5-17.0) ng/L Total Protein 7.2 (6.5-8.0) g/dL Albumin 3.8 (3.5-5.0) g/dL Urine Color Yellow Urine Appearance Clear Urine pH 6.0 (5.0-9.0) Ur Specific [place] 1.025 (1.005-1.025) Urine Protein 30 (1+) H (Neg-Trace) mg/dL Urine Glucose (UA) Negative (Negative) mg/dL Urine Ketones Trace (Negative) mg/dL Urine Blood Small (1+) H (Negative) Urine Nitrite Negative (Negative) Ur Leukocyte Esterase Negative (Negative) Urine RBC 0-2 (0-2) /HPF Urine WBC 0-5 (0-5) /HPF Ur Squamous Epith Cells 3-5 (0-2) /HPF Urine Bacteria None Seen (None Seen) Hyaline Casts 0-2 (0-2) /LPF Independent Interpretation I performed an independent interpretation of an: EKG Interpretation: Normal sinus rhythm heart rate 68 beats per minute normal intervals normal axis no acute STT wave changes no acute ischemia Discharge Plan Discharge Clinical Impression: Chest pain, Back pain Patient Disposition: Home, Self-Care Instructions: Back Pain (ED), Chest Wall Pain (ED) Additional Instructions: Your pain is unlikely from cardiac origin Take tramadol for pain as prescribed and follow up with your PCP Prescriptions: New tramadol 50 mg tablet 50 mg PO Q8-10H PRN (Reason: pain) Qty: 15 0RF No Action carvedilol 25 mg tablet 25 mg PO BID hydrocortisone 2.5 % cream 1 appl topical BID ergocalciferol (vitamin D2) 1,250 mcg (50,000 unit) capsule 1,250 mcg PO KENNEY dicyclomine 10 mg capsule 10 mg PO QID PRN (Reason: cramps) acetaminophen 500 mg Tablet 500 - 1,000 mg PO Q6H PRN (Reason: Pain) gabapentin 300 mg capsule 300 mg PO TID omeprazole 20 mg Capsule,Delayed Release(Dr/Ec) 20 mg PO DAILY@0630 Qty: 1 0RF enoxaparin 100 mg/mL Syringe 100 mg subcut Q12H Qty: 1 0RF aspirin 81 mg capsule 81 mg PO DAILY Qty: 1 0RF amlodipine 2.5 mg Tablet 2.5 mg PO DAILY Qty: 1 0RF Protocol: Hold for SBP< HOLD for SBP < : 90 Interventions: ED Discharge Assessment Last Done: 12/04/24 02:46 Print Language: Moroccan
--- OUTSIDE RECORDS SUMMARY | 2024-12-04 02:27 | XMS_ITS | Clinical Summary ---
Author Organization [facility] Address [address] [place] [address] Care Team Providers Care Shop Steward Name Role Phone Unavailable Primary Care Provider [...] age to complete this topic Meningococcal B Vaccine Aged Out No l onger eligible based on patient's age to complete [...] based on patient's age to complete this topic"
--- OUTSIDE RECORDS SUMMARY | 2024-12-04 02:27 | XMS_ITS | Encounter Summary ---
Author Organization [facility]. Address [address] [phone] Phone Care Team Providers Care Armature Repairer Name Role Phone Carrie Arias MD Primary Care Provider [phone] Encounter Details Date Type Department Care Team (Late st Contact Info) Description 06/06/2024 Office Communication [facility] [address] [phone] Shakila ReyesferADRIANNA [address] [phone] Social History Tobacco Use Types Packs/Day Years [...] as of this encounter Plan of Treatment Not on file documented as of this encounter Visit Diagnoses Not on filedocumented in this encounter Care Teams Armature Repairer Relationship Specialty Start Date End Date Carrie Arias MD [address] [place] [phone] PCP - General Family Medicine 09/29/23 documented as of this encounter
[2024-12-04] MEDS: traMADoL HCL 50 MG TABLET PO (02:36)
[2024-12-04 02:42] VITALS: BP 143/90; PULSE 76; RESP 16; TEMP 36.6; O2SAT 97
[2024-12-04 02:46] VITALS: BP 143/90; PULSE 76; RESP 16; TEMP 36.6; O2SAT 97
--- NOTE | 2024-12-04 02:49 | PC.NURSE ---
Pt a&ox4, no signs of distress Pt sitting in bed on cell phone Pt ambulates with a steady gait Pt denies pain at this time Plan of care ongoing.
== END 2024-12-04 02:51 | disposition home or self-care (01) ==
PROVIDERS: Emergency Provider Internal Medicine; PCP Family Medicine
DX: R07.9 Chest pain, unspecified (principal); R10.9 Unspecified abdominal pain; M54.9 Dorsalgia, unspecified
CPT/HCPCS: 36415; 80053; 81001; 84484; 85025; 93005; 99283; 99285

== ENCOUNTER → 2024-12-03 23:43 | Outpatient (BNV) | payer MEDICAID, SELFPAY | PROVIDERS: Emergency Provider Internal Medicine; PCP Family Medicine; Visit Provider Internal Medicine Cardiovascular Disease | DX: R94.31 Abnormal electrocardiogram [ECG] [EKG] (principal); R07.9 Chest pain, unspecified | CPT/HCPCS: 93010 ==

== ENCOUNTER 2024-12-05 01:55 | Emergency (ER) | payer MEDICAID, SELFPAY ==
--- NOTE | 2024-12-05 | ECG_ITS ---
Test Reason : chest pain Blood Pressure : */* mmHG Vent. Rate : 78 BPM Atrial Rate : 78 BPM P-R Int : 130 ms QRS Dur : 88 ms QT Int : 398 ms P-R-T Axes : 26 26 -2 degrees QTcB Int : 453 ms Normal sinus rhythm Nonspecific T wave abnormality Abnormal ECG When compared with ECG of 03-Dec-2024 23:43, No significant change was found Referred By: Generic ED Physician Electronically Signed By: PARVIN ARCE MD
[2024-12-05 02:05] VITALS: BP 140/90; BP 153/85; PULSE 88; RESP 16; TEMP 37; O2SAT 96; O2SAT 98; BMI 39.5
--- NOTE | 2024-12-05 02:17 | ED_ITS ---
HPI - Chest Pain General Chief Complaint: Chest Pain Stated Complaint: Burning sensation all over body Time Seen by Provider: 12/05/24 02:08 Source: patient and EMS Mode of arrival: EMS Limitations: no limitations History of Present Illness ED Provider: Dr. Jany Ashraf HPI narrative: patient comes to the emergency room with multiple complaints. Patient states that she has had chest pain for several months, complaining of burning sensation all over her body, complaining of scratchy throat without pain. patient was seen here with different set of complaints. Workup was unremarkable. Patient states that she believes that her upper lip is a bit more swollen than usual. Related Data Home Medications ?Medication ?Instructions ?Recorded ?Confirmed acetaminophen 500 mg tablet 500 - 1,000 mg PO Q6H PRN Pain 10/20/24 10/20/24 carvedilol 25 mg tablet 25 mg PO BID 10/20/24 10/20/24 dicyclomine 10 mg capsule 10 mg PO QID PRN cramps 10/20/24 10/20/24 ergocalciferol (vitamin D2) 1,250 1,250 mcg PO KENNEY 10/20/24 10/20/24 mcg (50,000 unit) capsule gabapentin 300 mg capsule 300 mg PO TID 10/20/24 10/20/24 hydrocortisone 2.5 % topical cream 1 appl topical BID 10/20/24 10/20/24 Previous Rx's ?Medication ?Instructions ?Recorded amlodipine 2.5 mg tablet 2.5 mg PO DAILY #1 tab 10/21/24 aspirin 81 mg capsule 81 mg PO DAILY #1 cap 10/21/24 enoxaparin 100 mg/mL subcutaneous 100 mg subcut Q12H #1 mL 10/21/24 syringe omeprazole 20 mg capsule,delayed 20 mg PO DAILY@0630 #1 cap 10/21/24 release tramadol 50 mg tablet 50 mg PO Q8-10H PRN pain #15 tabs 12/04/24 Allergies Allergy/AdvReac Type Severity Reaction Status Date / Time hydromorphone [From DILAUDID] Allergy Unknown RASH Verified 12/05/24 02:11 lamotrigine [From LAMICTAL] Allergy Unknown RASH Verified 12/05/24 02:11 morphine [MORPHINE] Allergy Unknown RASH Verified 12/05/24 02:11 pineapple [PINEAPPLE] Allergy Unknown HIVES Verified 12/05/24 02:11 Iodinated Contrast Media Allergy Chest Pain Verified 12/05/24 02:11 [Contrast Dye] ketorolac [From Toradol] AdvReac Chest Pain Verified 12/05/24 02:11 perflutren AdvReac Back Pain Verified 12/05/24 02:11 Review of Systems 2 Review of Systems: Constitutional : No Weight loss, No Fever, No Chills, No Night Sweats, No Fatigue, No Malaise ENT/Mouth : No Hearing loss, No Ear Pain, No Nasal Congestion, No Sinus Pain, No Hoarseness, No sore throat, complaining of scratchy throat, No Rhinorrhea, No Swallowing Difficulty Eyes: No Eye Pain, No Swelling, No Redness, No Foreign Body, No Discharge, No Vision Changes Cardiovascular : complaining of several months of Chest Pain, No SOB, No Dyspnea on Exertion, No Orthopnea, No Edema, No Palpitations Respiratory : No Cough, No Sputum, No Wheezing, No Smoke Exposure, No Dyspnea Gastrointestinal : No Nausea, No Vomiting, No Diarrhea, No Constipation, No abdominal Pain, No Hematochezia, No Melena Genitourinary : no irregular bleeding, No Dysuria, No Urinary Frequency, No Hematuria, No Urinary Incontinence, No Urgency, No Flank Pain, No Urinary Flow Changes, No Hesitancy Musculoskeletal : No joint pain, No Myalgias, No Joint Swelling Skin : No Skin Lesions, No rash Neuro : No Weakness, No Numbness, No Paresthesias, No Loss of Consciousness, No Dizziness, No Headache Psych : No Anxiety/Panic, No Depression, No SI/HI/AH/VH, No Social Issues, Heme/Lymph: No Bruising, No Bleeding,No Lymphadenopathy Endocrine : No Polyuria, No Polydipsia, No Temperature Intolerance [facility] Past Medical History Medical History Groin strain Essential hypertension Migraine Chest pain Social History Social History Household Members: Spouse and Children Housing: House Alcohol intake: never Comment: jose r Patient Tobacco Use Status: Never used Tobacco Smoked in Last 30 Days: No Use of substances other than those prescribed or required for medical reasons: No Advance Directives: No Advance Directives Information Provided: Yes Do you have a plan to hurt others: No Plan service: No Physical Exam 2 Vital Signs: Vital Signs: Last Vital Signs Temp 98.6 F 12/05/24 02:05 Pulse 88 12/05/24 02:05 Resp 16 12/05/24 02:05 BP 153/85 H 12/05/24 02:05 Pulse Ox 96 12/05/24 02:05 O2 Del Method Room Air 12/05/24 02:05 BMI result Body Mass Index 39.5 Const: Other: Appearance: Alert. Oriented X3. No acute distress. Eyes: Pupils equal, round and reactive to light. ENT: Pharynx normal. No angioedema Neck: Normal inspection. Neck supple. No lymph nodes noted. No crepitus CVS: Normal heart rate and rhythm. Pulses normal. Normal S1 and S2 Respiratory: No respiratory distress. Breath sounds normal. No Wheezing. No rales Abdomen: Soft and nontender. No rigidity. No distention. Skin: Skin warm and dry. Normal skin color. Normal skin turgor. Extremities: No lower extremity edema. No Lacerations. No Rash Neuro: Oriented X 3. No motor deficit. No sensory deficit. Moving all extremities. No slurred speech. CN 2 through 12 grossly intact Psych: calm, cooperative, normal affect Course Course Course Narrative: patient is coming in with multiple complaints. Patient was sent here yesterday. Patient's physical exam is unremarkable patient's labs from yesterday were unremarkable Labs from today pending Medications Administered Discontinued Medications Generic Name Dose Route Start Last Admin Trade Name Freq PRN Reason Stop Dose Admin Diphenhydramine HCl 50 mg 12/05/24 02:14 12/05/24 02:29 Diphenhydramine Hcl 25 Mg Capsule PO 12/05/24 02:15 50 mg ONCE ONE Administration Famotidine 20 mg 12/05/24 02:14 12/05/24 02:29 Famotidine 20 Mg Tablet PO 12/05/24 02:15 20 mg ONCE ONE Administration Prednisone 50 mg 12/05/24 02:14 12/05/24 02:29 Prednisone 10 Mg Tablet PO 12/05/24 02:15 50 mg ONCE ONE Administration Medical Decision Making Medical Decision Making [facility] Narrative: my interpretation of labs: No significant abnormality in patient's hematology , troponin at baseline, chemistry within normal limits patient's vitals stable on arrival, patient stated that she believes that her upper lip is more swollen than usual. However, on physical exam she does not seem to have any signs of allergic reaction or angioedema. Patient was given p.o. Benadryl, Pepcid and prednisone. no airway compromise chronic chest pain, no acute symptoms. Patient instructed to follow-up with PCP Differential Diagnosis Differential Diagnoses: The differential diagnosis associated with the presentation includes ( anxiety, atypical chest pain, arrhythmias) Lab Data MDM Lab Attestation statement: I reviewed the patient's lab results. 12/05/24 02:19 12/05/24 02:19 Labs: Lab Results 12/05/24 Range/Units 02:19 WBC 7.5 (4.8-10.8) X10*3/uL RBC 4.72 (4.20-5.50) X10*6/uL Hgb 10.3 L (12.0-16.0) g/dl Hct 33.9 L (37.0-47.0) % MCV 71.8 L (80.0-98.0) fL MCH 21.8 L (27.0-33.0) pg MCHC 30.4 L (31.0-35.0) g/dl RDW 14.7 (11.0-16.0) % Plt Count 257 (160-400) X10*3/uL MPV 11.6 (9.4-12.3) fL Immature Gran % (Auto) 0.1 (0.0-0.4) % Neut % (Auto) 55.9 (45-73) % Lymph % (Auto) 32.4 (20-40) % [place] % (Auto) 9.5 (2-11) % Eos % (Auto) 1.7 (0-4) % Baso % (Auto) 0.4 (0-2) % Lymph # (Auto) 2.4 (1.2-4.9) X10*3/uL [place] # (Auto) 0.7 (0.1-1.2) X10*3/uL Eos # (Auto) 0.1 (0.0-0.4) X10*3/uL Baso # (Auto) 0.0 (0.0-0.2) X10*3/uL Abs Immat Gran (auto) 0.01 (0.00-0.03) X10*3/uL Absolute Neuts (auto) 4.2 (2.0-8.3) x10*3/uL Absolute Nucleated RBC 0.000 (0.0-0.012) X10*3/uL Nucleated RBC % (auto) 0.0 (0.0-0.2) /100WBC Sodium 141 (135-145) mmol/L Potassium 3.4 (3.3-5.1) mmol/L Chloride 106 (96-108) mmol/L Carbon Dioxide 24 (22-29) mmol/L Anion Gap 14 (12-20) BUN 15 (9-16) mg/dL Creatinine 0.72 (0.5-1.4) mg/dL Estim Creat Clear Calc 121.5 Estimated GFR > 60 Random Glucose 93 (60-115) mg/dL Calcium 8.7 (8.4-10.2) mg/dL Total Bilirubin 0.2 (0.0-1.0) mg/dL AST 23 (5-31) U/L ALT 13 (0-31) U/L Alkaline Phosphatase 86 (39-117) U/L Troponin I High Sens 19.5 H (<3.5-17.0) ng/L Total Protein 7.4 (6.5-8.0) g/dL Albumin 3.8 (3.5-5.0) g/dL Critical Care Time Critical Care Time Critical Care Time: Yes Total Critical Care Time: 35 Attestation: I have personally provided critical care time. Time includes review of lab data, radiology results, discussion with consultants, and monitoring for potential decompensation. Intervention performed as documented. Discharge Plan Discharge Clinical Impression: Chronic chest pain, Lip swelling Patient Disposition: Home, Self-Care Instructions: Chest Pain (ED) Additional Instructions: Please follow-up with your primary care physician tomorrow. If you have any worsening or new symptoms, please return to the emergency room or call 911 Prescriptions: No Action tramadol 50 mg tablet 50 mg PO Q8-10H PRN (Reason: pain) Qty: 15 0RF carvedilol 25 mg tablet 25 mg PO BID hydrocortisone 2.5 % cream 1 appl topical BID ergocalciferol (vitamin D2) 1,250 mcg (50,000 unit) capsule 1,250 mcg PO KENNEY dicyclomine 10 mg capsule 10 mg PO QID PRN (Reason: cramps) acetaminophen 500 mg Tablet 500 - 1,000 mg PO Q6H PRN (Reason: Pain) gabapentin 300 mg capsule 300 mg PO TID omeprazole 20 mg Capsule,Delayed Release(Dr/Ec) 20 mg PO DAILY@0630 Qty: 1 0RF enoxaparin 100 mg/mL Syringe 100 mg subcut Q12H Qty: 1 0RF aspirin 81 mg capsule 81 mg PO DAILY Qty: 1 0RF amlodipine 2.5 mg Tablet 2.5 mg PO DAILY Qty: 1 0RF Protocol: Hold for SBP< HOLD for SBP < : 90 Print Language: [place]ese
[2024-12-05 02:24] LABS: MANUAL DIFF FLAG NO
[2024-12-05 02:26] LABS: Basophils Percent Auto 0.4 % (0-2); Eosinophils Absolute Auto 0.1 X10*3/uL (0.0-0.4); Eosinophils Percent Auto 1.7 % (0-4); Hematocrit 33.9 % (37.0-47.0); Hemoglobin 10.3 g/dl (12.0-16.0); Imm Gran Abs Auto 0.01 X10*3/uL (0.00-0.03); Imm Gran Pct Auto 0.1 % (0.0-0.4); Lymphocytes Absolute Auto 2.4 X10*3/uL (1.2-4.9); Lymphocytes Percent Auto 32.4 % (20-40); Mean Corpuscular HGB Conc 30.4 g/dl (31.0-35.0); Mean Corpuscular Hemoglobin 21.8 pg (27.0-33.0); Mean Corpuscular Volume 71.8 fL (80.0-98.0); Mean Platelet Volume 11.6 fL (9.4-12.3); Monocytes Absolute Auto 0.7 X10*3/uL (0.1-1.2); Monocytes Percent Auto 9.5 % (2-11); Neutrophils Absolute Auto 4.2 x10*3/uL (2.0-8.3); Neutrophils Percent Auto 55.9 % (45-73); Platelet Count 257 X10*3/uL (160-400); Red Blood Count 4.72 X10*6/uL (4.20-5.50); Red Cell Distribution Width 14.7 % (11.0-16.0); White Blood Count 7.5 X10*3/uL (4.8-10.8)
[2024-12-05] MEDS: predniSONE 10 MG TABLET 50 MG PO (02:29)
[2024-12-05] MEDS: diphenhydrAMINE HCL 25 MG CAPSULE 50 MG PO (02:29)
[2024-12-05] MEDS: Famotidine 20 MG TABLET PO (02:29)
--- NOTE | 2024-12-05 02:33 | PC.NURSE ---
provider into assess pt, pt medicated per mar.
[2024-12-05 02:50] LABS: Troponin-I High Sensitivity 19.5 ng/L (<3.5-17.0)
[2024-12-05 03:01] LABS: Alanine Aminotransferase 13 U/L (0-31); Albumin Level 3.8 g/dL (3.5-5.0); Alkaline Phosphatase 86 U/L (39-117); Anion Gap 14 (12-20); Aspartate Amino Transferase 23 U/L (5-31); Bilirubin Total 0.2 mg/dL (0.0-1.0); Blood Urea Nitrogen 15 mg/dL (9-16); Calcium 8.7 mg/dL (8.4-10.2); Carbon Dioxide 24 mmol/L (22-29); Chloride 106 mmol/L (96-108); Creatinine Clr Calc Pharmacy 121.5; Estimated Glomerular Filt Rate > 60; Glucose Random 93 mg/dL (60-115); Potassium 3.4 mmol/L (3.3-5.1); Sodium 141 mmol/L (135-145); Total Protein 7.4 g/dL (6.5-8.0)
[2024-12-05 03:27] VITALS: BP 153/85; PULSE 88; RESP 16; TEMP 37; O2SAT 96
== END 2024-12-05 03:31 | disposition home or self-care (01) ==
PROVIDERS: Emergency Provider Emergency Medicine
DX: G89.29 Other chronic pain (principal); R07.9 Chest pain, unspecified; K13.0 Diseases of lips; I10 Essential (primary) hypertension; Z79.899 Other long term (current) drug therapy
CPT/HCPCS: 36415; 80053; 84484; 85025; 93005; 99283; 99284

== ENCOUNTER → 2024-12-05 02:02 | Outpatient (BNV) | payer MEDICAID, SELFPAY | PROVIDERS: Emergency Provider Emergency Medicine; Visit Provider Internal Medicine Cardiovascular Disease | DX: R94.31 Abnormal electrocardiogram [ECG] [EKG] (principal); R07.9 Chest pain, unspecified | CPT/HCPCS: 93010 ==

== ENCOUNTER 2025-01-11 15:07 | Emergency (ER) | payer MEDICAID, SELFPAY ==
--- NOTE | ~2025-01-11 | XR_ITS ---
EXAMINATION: XR CHEST CLINICAL INFORMATION: chest pain/tightness COMPARISON: 10/20/2024 TECHNIQUE: 2 views of the chest were obtained. FINDINGS: The cardiac, hilar, and mediastinal contours are normal. The lungs are clear bilaterally. There is no pneumothorax or pleural effusion. There is no focal osseous or soft tissue abnormality. XR/XR chest 2V IMPRESSION: Normal chest. Electronically signed by: Fortunato Betancur MD 01/11/2025 03:53 PM EDT
[2025-01-11 15:09] VITALS: BP 147/92; PULSE 92; RESP 18; TEMP 36.6; O2SAT 99; BMI 40.4
--- NOTE | 2025-01-11 15:17 | ECG_ITS ---
Test Reason : cp Blood Pressure : */* mmHG Vent. Rate : 74 BPM Atrial Rate : 74 BPM P-R Int : 134 ms QRS Dur : 88 ms QT Int : 404 ms P-R-T Axes : 26 14 3 degrees QTcB Int : 448 ms Normal sinus rhythm Minimal voltage criteria for LVH, may be normal variant ( R in aVL ) Nonspecific T wave abnormality Abnormal ECG When compared with ECG of 05-Dec-2024 02:02, No significant change was found Referred By: Generic ED Physician Electronically Signed By: JOLYNN ENCISO
[2025-01-11 15:33] LABS: MANUAL DIFF FLAG NO
[2025-01-11 15:36] LABS: Basophils Percent Auto 0.5 % (0-2); Eosinophils Absolute Auto 0.1 X10*3/uL (0.0-0.4); Hemoglobin 11.1 g/dl (12.0-16.0); Imm Gran Abs Auto 0.01 X10*3/uL (0.00-0.03); Imm Gran Pct Auto 0.2 % (0.0-0.4); Lymphocytes Absolute Auto 1.7 X10*3/uL (1.2-4.9); Lymphocytes Percent Auto 27.2 % (20-40); Mean Corpuscular Hemoglobin 21.5 pg (27.0-33.0); Mean Corpuscular Volume 71.7 fL (80.0-98.0); Mean Platelet Volume 11.3 fL (9.4-12.3); Monocytes Absolute Auto 0.5 X10*3/uL (0.1-1.2); Monocytes Percent Auto 8.2 % (2-11); Neutrophils Absolute Auto 3.8 x10*3/uL (2.0-8.3); Neutrophils Percent Auto 61.9 % (45-73); Platelet Count 320 X10*3/uL (160-400); Red Blood Count 5.16 X10*6/uL (4.20-5.50); Red Cell Distribution Width 15.3 % (11.0-16.0); White Blood Count 6.1 X10*3/uL (4.8-10.8)
--- NOTE | 2025-01-11 15:45 | PC.NURSE ---
Moved from ED 27 to ED 25 due to non-working hospital monitor in 27. Provider (LINN Sharp) & primary grade teacher (Linh Lovelace) aware.
[2025-01-11 15:56] LABS: Alanine Aminotransferase 17 U/L (0-31); Albumin Level 4.4 g/dL (3.5-5.0); Alkaline Phosphatase 95 U/L (39-117); Anion Gap 12 (12-20); Aspartate Amino Transferase 23 U/L (5-31); Bilirubin Direct < 0.2 mg/dL (0.0-0.5); Bilirubin Total 0.2 mg/dL (0.0-1.0); Blood Urea Nitrogen 10 mg/dL (9-16); Calcium 9.3 mg/dL (8.4-10.2); Carbon Dioxide 26 mmol/L (22-29); Chloride 105 mmol/L (96-108); Creatinine Clr Calc Pharmacy 145.3; Estimated Glomerular Filt Rate > 60; Glucose Random 83 mg/dL (60-115); Lipase 25 U/L (8-78); Potassium 3.7 mmol/L (3.3-5.1); Sodium 139 mmol/L (135-145); Total Protein 8.3 g/dL (6.5-8.0)
[2025-01-11 16:01] LABS: Ethanol < 10 mg/dL
[2025-01-11 16:03] LABS: B Type Natriuretic Peptide 25 pg/mL (<100)
[2025-01-11 16:04] LABS: Troponin-I High Sensitivity 24.7 ng/L (<3.5-17.0)
[2025-01-11 16:05] LABS: HCG Quantitative < 2 mIU/mL
[2025-01-11 16:12] VITALS: BP 138/85; PULSE 72; RESP 20; O2SAT 93
[2025-01-11 17:12] LABS: Prothrombin Time 11.2 SEC (10.9-12.4)
--- NOTE | 2025-01-11 17:15 | ED.GENADULT ---
HPI - General Adult General Chief complaint: General Medical Stated complaint: High Blood pressure/sob/body pain Time Seen by Provider: 01/11/25 15:22 Source: patient Mode of arrival: ambulatory Limitations: no limitations History of Present Illness ED Provider: Mane Sharp HPI narrative: 34 yold female with pmh of HTN, fibromyalgia presents to the ED for chest tightness, headache, and generalized bodyache after getting news that her daughter drank 5 extral ml of motrin, possible overdose. patient denies any recent long travel or surgery. Related Data Home Medications ?Medication ?Instructions ?Recorded ?Confirmed acetaminophen 500 mg tablet 500 - 1,000 mg PO Q6H PRN Pain 10/20/24 10/20/24 carvedilol 25 mg tablet 25 mg PO BID 10/20/24 10/20/24 dicyclomine 10 mg capsule 10 mg PO QID PRN cramps 10/20/24 10/20/24 ergocalciferol (vitamin D2) 1,250 1,250 mcg PO KENNEY 10/20/24 10/20/24 mcg (50,000 unit) capsule gabapentin 300 mg capsule 300 mg PO TID 10/20/24 10/20/24 hydrocortisone 2.5 % topical cream 1 appl topical BID 10/20/24 10/20/24 Previous Rx's ?Medication ?Instructions ?Recorded amlodipine 2.5 mg tablet 2.5 mg PO DAILY #1 tab 10/21/24 aspirin 81 mg capsule 81 mg PO DAILY #1 cap 10/21/24 enoxaparin 100 mg/mL subcutaneous 100 mg subcut Q12H #1 mL 10/21/24 syringe omeprazole 20 mg capsule,delayed 20 mg PO DAILY@0630 #1 cap 10/21/24 release tramadol 50 mg tablet 50 mg PO Q8-10H PRN pain #15 tabs 12/04/24 Allergies Allergy/AdvReac Type Severity Reaction Status Date / Time hydromorphone (From DILAUDID) Allergy Unknown RASH Verified 12/05/24 02:11 lamotrigine (From LAMICTAL) Allergy Unknown RASH Verified 12/05/24 02:11 morphine (MORPHINE) Allergy Unknown RASH Verified 12/05/24 02:11 pineapple (PINEAPPLE) Allergy Unknown HIVES Verified 12/05/24 02:11 atomoxetine (From Strattera) Allergy Hypertensio Verified 01/11/25 15:15 n bupropion Allergy Hypertensio Verified 01/11/25 15:15 n Iodinated Contrast Media Allergy Chest Pain Verified 12/05/24 02:11 (Contrast Dye) ketorolac (From Toradol) AdvReac Chest Pain Verified 12/05/24 02:11 perflutren AdvReac Back Pain Verified 12/05/24 02:11 Review of Systems Review of Systems: chest pain, bodyaches, feeling jittery, headache Yes all other systems are reviewed and are negative [facility] Past Medical History Medical History Groin strain Essential hypertension Migraine Chest pain Social History Social History Household Members: Spouse and Children Housing: House Alcohol intake: never Comment: jose r Patient Tobacco Use Status: Never used Tobacco Advance Directives: No Advance Directives Information Provided: No service: No Physical Exam ED Vital Signs: Vital Signs - 24 hr 01/11/25 15:09 01/11/25 16:12 Temperature 97.9 F Pulse Rate 92 72 Respiratory Rate 18 20 Blood Pressure 147/92 H 138/85 Pulse Oximetry 99 93 Oxygen Delivery Method Room Air Room Air BMI result Body Mass Index 40.4 Const General: cooperative, healthy appearing, comfortable, no acute distress, well developed, alert, awake and Physically active [facility] Head: Yes normal to inspection, Yes No palpable skull fracture present, Yes normocephalic and Yes atraumatic Eyes General: appearance normal, both eyes and all related structures Neck Neck: Yes normal visual inspection, Yes full ROM, Yes no lymphadenopathy, Yes no meningeal signs, Yes trachea midline, Yes supple, No anterior neck swelling and No tender Chest Chest palpation & inspection: normal inspection of the chest and normal palpation of entire chest wall Resp Effort & Inspection: normal respiratory effort and able to speak in complete sentences Auscultation: clear to auscultation bilaterally Cardio Jugular venous distension: no JVD Heart sounds: S1 normal heart sound present and S2 normal heart sound present GI Inspection: Yes normal to inspection Palpation (GI): Soft to palpation, not firm, nontender, no guarding and not rigid General: Yes no CVA tenderness Back/Spine/Pelvis Back: no CVA tenderness and No back tenderness Skin General skin exam: no rashes or lesions noted, elasticity normal and turgor normal Neuro General: gait normal, tone normal, moves all extremities, Normal light touch and pain sensation, no meningeal signs, no focal motor deficits, CN's II-XI intact bilaterally and normal sensation to monofilament Extrem Other: bilateral lower extretmities negative for swelling, pitting edema, or calf tenderness. General: Yes normal to inspection, Yes full ROM and Yes capillary refill normal Psych Appearance: grossly normal, well kempt and not disheveled Medical Decision Making Medical Decision Making MDM Narrative: 34-year-old female history of hypertension presents to ED for chest pain, headache, body aches, elevated blood pressure after hitting reveals odor drank extra amount of Motrin primary care provider Told her to bring patient to the ED. presently NIH score is 0. Negative for signs of stroke. D-dimer negative PERC score is 0. Heart Score 1. Chest x-ray negative for fluid overload. BNP negative. Not suspecting pericarditis, myocarditis, aortic dissection, AAA rupture, hypoxia, PE, NE, CHF, or any other life-threatening etiology. Patient explained worrisome signs and informed to return to the ED immediately. Not suspecting DVT, compartment syndrome, cellulitis, osteomyelitis, or arterial occlusion. Differential Diagnosis Differential Diagnoses: The differential diagnosis associated with the presentation includes (Anxiety, NE, PE, hypertensive crisis) Admission/Observation Consideration of admission/observation: Escalation of care including admission/observation considered Lab Data [facility] Lab Attestation statement: I reviewed the patient's lab results. 01/11/25 15:29 01/11/25 15:29 Labs: Lab Results 01/11/25 01/11/25 01/11/25 Range/Units 15:28 15:29 17:20 WBC 6.1 (4.8-10.8) X10*3/uL RBC 5.16 (4.20-5.50) X10*6/uL Hgb 11.1 L (12.0-16.0) g/dl Hct 37.0 (37.0-47.0) % MCV 71.7 L (80.0-98.0) fL MCH 21.5 L (27.0-33.0) pg MCHC 30.0 L (31.0-35.0) g/dl RDW 15.3 (11.0-16.0) % Plt Count 320 (160-400) X10*3/uL MPV 11.3 (9.4-12.3) fL Immature Gran % (Auto) 0.2 (0.0-0.4) % Neut % (Auto) 61.9 (45-73) % Lymph % (Auto) 27.2 (20-40) % [place] % (Auto) 8.2 (2-11) % Eos % (Auto) 2.0 (0-4) % Baso % (Auto) 0.5 (0-2) % Lymph # (Auto) 1.7 (1.2-4.9) X10*3/uL [place] # (Auto) 0.5 (0.1-1.2) X10*3/uL Eos # (Auto) 0.1 (0.0-0.4) X10*3/uL Baso # (Auto) 0.0 (0.0-0.2) X10*3/uL Abs Immat Gran (auto) 0.01 (0.00-0.03) X10*3/uL Absolute Neuts (auto) 3.8 (2.0-8.3) x10*3/uL Absolute Nucleated RBC 0.000 (0.0-0.012) X10*3/uL Nucleated RBC % (auto) 0.0 (0.0-0.2) /100WBC PT 11.2 (10.9-12.4) SEC INR 1.0 (0.9-1.1) D-Dimer High Sensitivty < 150 NG/ML Sodium 139 (135-145) mmol/L Potassium 3.7 (3.3-5.1) mmol/L Chloride 105 (96-108) mmol/L Carbon Dioxide 26 (22-29) mmol/L Anion Gap 12 (12-20) BUN 10 (9-16) mg/dL Creatinine 0.61 (0.5-1.4) mg/dL Estim Creat Clear Calc 145.3 Estimated GFR > 60 Random Glucose 83 (60-115) mg/dL Calcium 9.3 D (8.4-10.2) mg/dL Total Bilirubin 0.2 (0.0-1.0) mg/dL Direct Bilirubin < 0.2 (0.0-0.5) mg/dL AST 23 (5-31) U/L ALT 17 (0-31) U/L Alkaline Phosphatase 95 (39-117) U/L Troponin I High Sens 24.7 H 23.4 H (<3.5-17.0) ng/L B-Natriuretic Peptide 25 (<100) pg/mL Total Protein 8.3 H (6.5-8.0) g/dL Albumin 4.4 (3.5-5.0) g/dL Lipase 25 (8-78) U/L Beta HCG, Quant < 2 mIU/mL Urine Color Urine Appearance Urine pH (5.0-9.0) Ur Specific [place] (1.005-1.025) Urine Protein (Neg-Trace) mg/dL Urine Glucose (UA) (Negative) mg/dL Urine Ketones (Negative) mg/dL Urine Blood (Negative) Urine Nitrite (Negative) Ur Leukocyte Esterase (Negative) Urine RBC (0-2) /HPF Urine WBC (0-5) /HPF Ur Squamous Epith Cells (0-2) /HPF Urine Bacteria (None Seen) Hyaline Casts (0-2) /LPF Ethyl Alcohol < 10 mg/dL 01/11/25 Range/Units 17:30 WBC (4.8-10.8) X10*3/uL RBC (4.20-5.50) X10*6/uL Hgb (12.0-16.0) g/dl Hct (37.0-47.0) % MCV (80.0-98.0) fL MCH (27.0-33.0) pg MCHC (31.0-35.0) g/dl RDW (11.0-16.0) % Plt Count (160-400) X10*3/uL MPV (9.4-12.3) fL Immature Gran % (Auto) (0.0-0.4) % Neut % (Auto) (45-73) % Lymph % (Auto) (20-40) % [place] % (Auto) (2-11) % Eos % (Auto) (0-4) % Baso % (Auto) (0-2) % Lymph # (Auto) (1.2-4.9) X10*3/uL [place] # (Auto) (0.1-1.2) X10*3/uL Eos # (Auto) (0.0-0.4) X10*3/uL Baso # (Auto) (0.0-0.2) X10*3/uL Abs Immat Gran (auto) (0.00-0.03) X10*3/uL Absolute Neuts (auto) (2.0-8.3) x10*3/uL Absolute Nucleated RBC (0.0-0.012) X10*3/uL Nucleated RBC % (auto) (0.0-0.2) /100WBC PT (10.9-12.4) SEC INR (0.9-1.1) D-Dimer High Sensitivty NG/ML Sodium (135-145) mmol/L Potassium (3.3-5.1) mmol/L Chloride (96-108) mmol/L Carbon Dioxide (22-29) mmol/L Anion Gap (12-20) BUN (9-16) mg/dL Creatinine (0.5-1.4) mg/dL Estim Creat Clear Calc Estimated GFR Random Glucose (60-115) mg/dL Calcium (8.4-10.2) mg/dL Total Bilirubin (0.0-1.0) mg/dL Direct Bilirubin (0.0-0.5) mg/dL AST (5-31) U/L ALT (0-31) U/L Alkaline Phosphatase (39-117) U/L Troponin I High Sens (<3.5-17.0) ng/L B-Natriuretic Peptide (<100) pg/mL Total Protein (6.5-8.0) g/dL Albumin (3.5-5.0) g/dL Lipase (8-78) U/L Beta HCG, Quant mIU/mL Urine Color Yellow Urine Appearance Clear Urine pH 6.5 (5.0-9.0) Ur Specific [place] 1.015 (1.005-1.025) Urine Protein Trace (Neg-Trace) mg/dL Urine Glucose (UA) Negative (Negative) mg/dL Urine Ketones Negative (Negative) mg/dL Urine Blood Small (1+) H (Negative) Urine Nitrite Negative (Negative) Ur Leukocyte Esterase Negative (Negative) Urine RBC 3-5 H (0-2) /HPF Urine WBC 0-5 (0-5) /HPF Ur Squamous Epith Cells 3-5 (0-2) /HPF Urine Bacteria None Seen (None Seen) Hyaline Casts 0-2 (0-2) /LPF Ethyl Alcohol mg/dL Independent Interpretation I performed an independent interpretation of an: EKG (normal sinus) and Plain X-Ray Radiology Impression Discussion of test interpretation with radiology: I have reviewed the radiologist's reading. Independent Historian Clinical information obtained from an independent historian. History obtained from or confirmed by: Other (patient) Prescription Management I considered prescription management with: Pain Medication Discharge Plan Discharge Clinical Impression: Chest pain Qualifiers: Chest pain type: unspecified Qualified Code(s): R07.9 - Chest pain, unspecified Patient Disposition: Home, Self-Care Instructions: Chest Pain (ED) Additional Instructions: Recommend follow-up with primary care provider. Your labs EKG and chest x-ray came back reassuring. Return to ED for any leg swelling, calf pain, coughing up blood, chest pain on inspiration, chest pain, shortness of breath, slurred speech, facial droop, paralysis of extremities, nausea, vomiting, dizziness, loss of vision, severe headache, or any other concerning symptoms. Prescriptions: No Action tramadol 50 mg tablet 50 mg PO Q8-10H PRN (Reason: pain) Qty: 15 0RF carvedilol 25 mg tablet 25 mg PO BID hydrocortisone 2.5 % cream 1 appl topical BID ergocalciferol (vitamin D2) 1,250 mcg (50,000 unit) capsule 1,250 mcg PO KENNEY dicyclomine 10 mg capsule 10 mg PO QID PRN (Reason: cramps) acetaminophen 500 mg Tablet 500 - 1,000 mg PO Q6H PRN (Reason: Pain) gabapentin 300 mg capsule 300 mg PO TID omeprazole 20 mg Capsule,Delayed Release(Dr/Ec) 20 mg PO DAILY@0630 Qty: 1 0RF enoxaparin 100 mg/mL Syringe 100 mg subcut Q12H Qty: 1 0RF aspirin 81 mg capsule 81 mg PO DAILY Qty: 1 0RF amlodipine 2.5 mg Tablet 2.5 mg PO DAILY Qty: 1 0RF Protocol: Hold for SBP< HOLD for SBP < : 90 Referrals: Dixon Maharaj MD [Primary Care Provider, Internal Medicine] - 1 day Referral Note: Chest pain Clinical Impression: Chest pain Stand Alone Forms: Work/School Release Interventions: ED Discharge Assessment Last Done: 01/11/25 18:42 Discharge Date/Time: 01/11/25 18:42 Print Language: Tajik
[2025-01-11 17:45] LABS: Appearance Urine Clear; Color Urine Yellow; Glucose Urine UA Negative (Negative); Leukocyte Esterase Urine Negative (Negative); Nitrite Urine Negative (Negative); PH 6.5 (5.0-9.0); Specific Gravity - Urine 1.015 (1.005-1.025); UMIC TRIGGER UACC YES; Urine Blood Small (1+) (Negative); Urine Ketones Negative (Negative); Urine Protein Trace mg/dL (Neg-Trace)
[2025-01-11 17:46] LABS: D Dimer High Sensitivity < 150 NG/ML
[2025-01-11 17:49] LABS: Troponin-I High Sensitivity 23.4 ng/L (<3.5-17.0)
[2025-01-11 17:56] LABS: Bacteria Urine None Seen (None Seen); Hyaline Casts Urine 0-2 /LPF (0-2); WBC Urine 0-5 /HPF (0-5)
[2025-01-11 18:08] VITALS: BP 146/91; PULSE 79; RESP 14; O2SAT 99
[2025-01-11 18:42] VITALS: BP 146/91; PULSE 79; RESP 14; TEMP 37.1; O2SAT 99
--- OUTSIDE RECORDS SUMMARY | 2025-01-11 18:52 | XMS_ITS | Clinical Summary ---
Author Organization [facility] Address [address] [id number] Phone Care Team Providers Care Manager Order Name Role Phone Carrie Arias MD Primary Care Provider [phone] Allergies Active Allergy Reactions Criticality Noted Date [...] for mild pain Active ergocalciferol 1.25 MG (12409 UT) capsule Take 50,000 Units by mouth [...] each day 15 tablet 11 05/11/2024 05/11/20 Active Active Problems Problem Noted Date Diagnosed Date Essential (primary) hypertension 09/29/2023 Intracranial meningioma 09/29/2023 Obesity 09/29/2023 Sleep apnea 09/29/2023 Cervico-occipital neuralgia 09/29/2023 Stone in kidney 09/29/2023 Insomnia 09/29/2023 Prediabetes 09/29/2023 Proteinuria 09/29/2023 Family History Medical History Relation Comments Hypertension [...] Mass Index - - Plan of Treatment Health Maintenance Due Date Last Done Comments Pneumococcal Vaccine: Peds ( 0 to 5 Years) and At-Risk Patients (6 to 49 Years) (1 of 2 - PCV) 2010 Diabetes: Hemoglobin A1C 11/03/2023 Diabetes: Ophthalmology Exam 11/03/2023 Diabetes: Pedal Pulse Checked 11/03/2023 Diabetes: Sensory Foot Exam 11/03/2023 Diabetes: Visual Foot Exam 11/03/2023 Influenza Vaccine (Season Ended) 2025 04/14/2023, 04/26/2022, 05/16/2021, Additional history exists Hepatitis B Vaccine Completed 09/01/1996, 05/19/1996, 09/18/1992 Insurance Medicaid [place] [facility] Care Teams Manager Order Relationship Specialty Start Date End Date Carrie Arias MD [address] [place] [address] PCP - General Family Medicine 09/29/23
== END 2025-01-11 18:42 | disposition home or self-care (01) ==
PROVIDERS: Physician Assistant; Emergency Provider Emergency Medicine; PCP Family Medicine
DX: R07.9 Chest pain, unspecified (principal); I10 Essential (primary) hypertension; R79.89 Other specified abnormal findings of blood chemistry; Z79.899 Other long term (current) drug therapy
CPT/HCPCS: 36415; 71046; 80048; 80076; 80307; 81001; 83690; 83880; 84484; 84702; 85025; 85379; 85610; 93005; 99284

== ENCOUNTER → 2025-01-11 15:17 | Outpatient (BNV) | payer MEDICAID, SELFPAY | PROVIDERS: Emergency Provider Emergency Medicine; PCP Family Medicine; Visit Provider Internal Medicine | DX: R94.31 Abnormal electrocardiogram [ECG] [EKG] (principal); R07.9 Chest pain, unspecified | CPT/HCPCS: 93010 ==

== ENCOUNTER → 2025-01-11 15:35 | Outpatient (BNV) | payer MEDICAID, SELFPAY | PROVIDERS: Emergency Provider Emergency Medicine; PCP Family Medicine; Visit Provider Radiology Diagnostic Radiology | DX: R07.89 Other chest pain (principal) | CPT/HCPCS: 71046 ==

== ENCOUNTER 2025-03-30 18:30 | Emergency (ER) | payer MEDICAID, SELFPAY ==
--- NOTE | 2025-03-30 | ECG_ITS ---
Test Reason : CHEST PAIN Blood Pressure : */* mmHG Vent. Rate : 65 BPM Atrial Rate : 65 BPM P-R Int : 132 ms QRS Dur : 90 ms QT Int : 422 ms P-R-T Axes : 26 32 13 degrees QTcB Int : 438 ms Normal sinus rhythm with sinus arrhythmia Poor R wave progression Borderline ECG When compared with ECG of 11-Jan-2025 15:41, No significant change was found Referred By: Generic ED Physician Electronically Signed By: PARVIN ARCE MD
--- NOTE | ~2025-03-30 | XR_ITS ---
CLINICAL HISTORY: chest pain 2 view chest x-ray Comparison: CR/SR - XR CHEST 2 VIEWS - 01/11/25 15:39 EDT Findings: No consolidation, pleural effusion or pneumothorax. Normal size heart. No acute fracture. IMPRESSION: No acute cardiopulmonary process. This document has been electronically signed by: Marlena Coreas DO on 03/30/2025 19:59:30
[2025-03-30 18:58] VITALS: BP 142/71; PULSE 75; RESP 17; TEMP 36.6; O2SAT 99; BMI 42.0
--- NOTE | 2025-03-30 18:59 | ED.GENADULT ---
HPI - General Adult General Chief complaint: General Medical Stated complaint: chest + kidney consistent Time Seen by Provider: 03/30/25 20:36 Source: patient Mode of arrival: ambulatory History of Present Illness ED Provider: Sinan DAVIS narrative: 34-year-old female who comes in with acute on chronic bilateral kidney pain that then becomes chest pain . Patient has been seen many times for this as per her. She denies any associated fever, chills, nausea, vomiting. She is being followed by both Cardiology and Nephrology. Related Data Home Medications ?Medication ?Instructions ?Recorded ?Confirmed acetaminophen 500 mg tablet 500 - 1,000 mg PO Q6H PRN Pain 10/20/24 10/20/24 carvedilol 25 mg tablet 25 mg PO BID 10/20/24 10/20/24 dicyclomine 10 mg capsule 10 mg PO QID PRN cramps 10/20/24 10/20/24 ergocalciferol (vitamin D2) 1,250 1,250 mcg PO KENNEY 10/20/24 10/20/24 mcg (50,000 unit) capsule gabapentin 300 mg capsule 300 mg PO TID 10/20/24 10/20/24 hydrocortisone 2.5 % topical cream 1 appl topical BID 10/20/24 10/20/24 Previous Rx's ?Medication ?Instructions ?Recorded amlodipine 2.5 mg tablet 2.5 mg PO DAILY #1 tab 10/21/24 aspirin 81 mg capsule 81 mg PO DAILY #1 cap 10/21/24 enoxaparin 100 mg/mL subcutaneous 100 mg subcut Q12H #1 mL 10/21/24 syringe omeprazole 20 mg capsule,delayed 20 mg PO DAILY@0630 #1 cap 10/21/24 release tramadol 50 mg tablet 50 mg PO Q8-10H PRN pain #15 tabs 12/04/24 Allergies Allergy/AdvReac Type Severity Reaction Status Date / Time hydromorphone (From DILAUDID) Allergy Unknown RASH Verified 03/30/25 18:59 lamotrigine (From LAMICTAL) Allergy Unknown RASH Verified 03/30/25 18:59 morphine (MORPHINE) Allergy Unknown RASH Verified 03/30/25 18:59 pineapple (PINEAPPLE) Allergy Unknown HIVES Verified 03/30/25 18:59 atomoxetine (From Strattera) Allergy Hypertensio Verified 03/30/25 18:59 n bupropion Allergy Hypertensio Verified 03/30/25 18:59 n Iodinated Contrast Media Allergy Chest Pain Verified 03/30/25 18:59 (Contrast Dye) ketorolac (From Toradol) AdvReac Chest Pain Verified 03/30/25 18:59 perflutren AdvReac Back Pain Verified 03/30/25 18:59 Review of Systems Review of Systems: Pertinent positives and negatives as stated in [facility] Past Medical History Attestation statement: The following information was validated with the patient. Source: nursing notes reviewed Medical History Groin strain Essential hypertension Migraine Chest pain Social History Social History Household Members: Spouse and Children Housing: House Alcohol intake: never Comment: jose r Patient Tobacco Use Status: Never used Tobacco Advance Directives: No Advance Directives Information Provided: Yes Do you have a plan to hurt others: No Plan service: No Physical Exam ED Exam Exam: VITAL SIGNS: Reviewed. GENERAL: Elevated BMI, Well developed, well nourished, in no acute distress. HEAD: Normocephalic/atraumatic EYES: PERRLA, EOMI EARS: Ext canals without abnormality NOSE: Nares patent bilateral OROPHARYNX: no oral lesions noted, posterior pharynx clear NECK: Supple, no adenopathy LUNGS: Normal breath sounds. No adventitious sounds or accessory muscle use. SpO2<99> CARDIOVASCULAR: Regular rate and rhythm without noted murmurs, no JVD or lower extremity edema. ABDOMEN: Soft, non-tender, non-distended with bowel sounds. MUSCULOSKELETAL: No tenderness, deformities, or effusions noted on gross inspection. EXTREMITIES: No cyanosis, clubbing or edema. SKIN: Inspection of the skin reveals no rashes NEUROLOGIC: Alert and oriented x 4. Strength and sensation to light touch were grossly intact x 4. Vital Signs: Vital Signs - 24 hr 03/30/25 18:58 03/30/25 20:47 Temperature 97.8 F 98.0 F Pulse Rate 75 71 Respiratory Rate 17 18 Blood Pressure 142/71 H 118/74 Pulse Oximetry 99 98 Oxygen Delivery Method Room Air Room Air BMI result Body Mass Index 42.0 Course Course Course Narrative: Rapid medical examination performed in triage by Loree Mason PA-C. Patient is a 34 year old assigned female at presenting to the emergency department with chest pain. Detailed physical exam and review of systems are deferred to the aboriginal ceremonial celebrant. EKG, labs, imaging, swabs ordered. Patient placed back in the waiting room pending room availability and results. Medications Administered Discontinued Medications Generic Name Dose Route Start Last Admin Trade Name Mishaq PRN Reason Stop Dose Admin Acetaminophen 975 mg 03/30/25 21:05 03/30/25 21:21 Acetaminophen 325 Mg Tablet PO 03/30/25 21:06 975 mg ONCE ONE Administration Medical Decision Making Medical Decision Making MDM Narrative: 34-year-old female with history and clinical presentation, DD DX: Chronic recurrent symptomatology, patient has been worked up several times in continues to be under the care of both Cardiology and Nephrology, will obtain basic lab work as well as an EKG and chest x-ray to ensure no acute pathology. My interpretation of the EKG: Sinus rhythm, HR-65, no STEMI, DC/QRS/QTC is within normal limits. There are no acute changes when compared to prior from December/2024 Intervention: 975 mg of Tylenol. 212: I reviewed and interpreted all investigations and there is no leukocytosis, there is a stable anemia no thrombocytopenia. There is a slight eosinophilia, raising possibility of asthma like symptoms with the chest discomfort. Coagulation studies are within normal limits. There is no demonstrate [place]/electrolyte or liver enzyme derangements. Beta hCG is negative. High sensitivity troponin is detectable but not significantly elevated specially when compared to prior values. Urine continues to be positive for protein but otherwise no evidence of infection or hematuria. Viral testing is negative for COVID-19/influenza. My interpretation is in agreement with radiology's impression there is no evidence of acute infiltrate or venous congestion. I discussed all results and findings with the patient at bedside, and patient is otherwise well appearing/nontoxic and hemodynamically stable. Patient does not meet inpatient level of care and has good outpatient resources. Differential Diagnosis Differential Diagnoses: The differential diagnosis associated with the presentation includes See above Admission/Observation Consideration of admission/observation: Escalation of care including admission/observation considered See above Lab Data [facility] Lab Attestation statement: I reviewed the patient's lab results. See above 03/30/25 19:11 03/30/25 19:11 Labs: Lab Results 03/30/25 03/30/25 Range/Units 19:11 19:14 WBC 5.7 (4.8-10.8) X10*3/uL RBC 4.46 (4.20-5.50) X10*6/uL Hgb 9.2 L (12.0-16.0) g/dl Hct 31.2 L (37.0-47.0) % MCV 70.0 L (80.0-98.0) fL MCH 20.6 L (27.0-33.0) pg MCHC 29.5 L (31.0-35.0) g/dl RDW 16.1 H (11.0-16.0) % Plt Count 301 (160-400) X10*3/uL MPV 11.1 (9.4-12.3) fL Immature Gran % (Auto) 0.2 (0.0-0.4) % Neut % (Auto) 55.3 (45-73) % Lymph % (Auto) 32.7 (20-40) % [place] % (Auto) 7.0 (2-11) % Eos % (Auto) 4.4 H (0-4) % Baso % (Auto) 0.4 (0-2) % Lymph # (Auto) 1.9 (1.2-4.9) X10*3/uL [place] # (Auto) 0.4 (0.1-1.2) X10*3/uL Eos # (Auto) 0.3 (0.0-0.4) X10*3/uL Baso # (Auto) 0.0 (0.0-0.2) X10*3/uL Abs Immat Gran (auto) 0.01 (0.00-0.03) X10*3/uL Absolute Neuts (auto) 3.2 (2.0-8.3) x10*3/uL Absolute Nucleated RBC 0.000 (0.0-0.012) X10*3/uL Nucleated RBC % (auto) 0.0 (0.0-0.2) /100WBC PT 11.5 (10.9-12.4) SEC INR 1.0 (0.9-1.1) Sodium 142 (135-145) mmol/L Potassium 3.7 (3.3-5.1) mmol/L Chloride 107 (96-108) mmol/L Carbon Dioxide 27 (22-29) mmol/L Anion Gap 12 (12-20) BUN 10 (9-16) mg/dL Creatinine 0.73 (0.5-1.4) mg/dL Estim Creat Clear Calc 124.0 Estimated GFR > 60 Random Glucose 106 (60-115) mg/dL Calcium 8.8 (8.4-10.2) mg/dL Magnesium 2.0 (1.6-2.6) mg/dL Total Bilirubin 0.1 (0.0-1.0) mg/dL AST 20 (5-31) U/L ALT 17 (0-31) U/L Alkaline Phosphatase 91 (39-117) U/L Troponin I High Sens 16.0 (<3.5-17.0) ng/L Total Protein 7.7 (6.5-8.0) g/dL Albumin 4.0 (3.5-5.0) g/dL Beta HCG, Quant < 2 mIU/mL Urine Color Yellow Urine Appearance Clear Urine pH 6.5 (5.0-9.0) Ur Specific [place] 1.020 (1.005-1.025) Urine Protein 30 (1+) H (Neg-Trace) mg/dL Urine Glucose (UA) Negative (Negative) mg/dL Urine Ketones Negative (Negative) mg/dL Urine Blood Negative (Negative) Urine Nitrite Negative (Negative) Ur Leukocyte Esterase Negative (Negative) Urine RBC 0-2 (0-2) /HPF Urine WBC 0-5 (0-5) /HPF Ur Squamous Epith Cells 6-10 (0-2) /HPF Urine Bacteria Trace (None Seen) Hyaline Casts 0-2 (0-2) /LPF COVID-19 (REUBEN) Negative (Negative) COVID-19 Clin Com See Note Influenza Type A (KESHIA) Negative (Negative) Influenza Type B (KESHIA) Negative (Negative) Influenza A & B Note See Note Independent Interpretation I performed an independent interpretation of an: EKG and Plain X-Ray Interpretation: See above Radiology Impression Discussion of test interpretation with radiology: I have reviewed the radiologist's reading. Radiologist Impression: See above External Record Review External record reviewed: Prior outpatient labs and Prior outpatient radiology Discharge Plan Discharge Clinical Impression: Chest pain Qualifiers: Chest pain type: unspecified Qualified Code(s): R07.9 - Chest pain, unspecified Patient Disposition: Home, Self-Care Instructions: Chest Pain (ED) Additional Instructions: Resume all home medications as prescribed. Please take Tylenol for your chest discomfort. Your workup today was otherwise reassuring. Recommend reaching out to your panel sewer and inspector of weights and measures within the next week, do not hesitate to return to the emergency room for any worsening of your symptoms. Prescriptions: No Action tramadol 50 mg tablet 50 mg PO Q8-10H PRN (Reason: pain) Qty: 15 0RF carvedilol 25 mg tablet 25 mg PO BID hydrocortisone 2.5 % cream 1 appl topical BID ergocalciferol (vitamin D2) 1,250 mcg (50,000 unit) capsule 1,250 mcg PO KENNEY dicyclomine 10 mg capsule 10 mg PO QID PRN (Reason: cramps) acetaminophen 500 mg Tablet 500 - 1,000 mg PO Q6H PRN (Reason: Pain) gabapentin 300 mg capsule 300 mg PO TID omeprazole 20 mg Capsule,Delayed Release(Dr/Ec) 20 mg PO DAILY@0630 Qty: 1 0RF enoxaparin 100 mg/mL Syringe 100 mg subcut Q12H Qty: 1 0RF aspirin 81 mg capsule 81 mg PO DAILY Qty: 1 0RF amlodipine 2.5 mg Tablet 2.5 mg PO DAILY Qty: 1 0RF Protocol: Hold for SBP< HOLD for SBP < : 90 Referrals: Dixon Maharaj MD [Primary Care Provider, Internal Medicine] Print Language: Citizen Of [place]
[2025-03-30 19:20] LABS: MANUAL DIFF FLAG NO
[2025-03-30 19:25] LABS: Appearance Urine Clear; Glucose Urine UA Negative (Negative); PH 6.5 (5.0-9.0); Specific Gravity - Urine 1.020 (1.005-1.025); UMIC TRIGGER UACC YES
[2025-03-30 19:26] LABS: Hematocrit 31.2 % (37.0-47.0); Hemoglobin 9.2 g/dl (12.0-16.0); Imm Gran Abs Auto 0.01 X10*3/uL (0.00-0.03); Imm Gran Pct Auto 0.2 % (0.0-0.4); Lymphocytes Absolute Auto 1.9 X10*3/uL (1.2-4.9); Mean Corpuscular HGB Conc 29.5 g/dl (31.0-35.0); Mean Corpuscular Hemoglobin 20.6 pg (27.0-33.0); Mean Corpuscular Volume 70.0 fL (80.0-98.0); NRBC Abs Auto 0.000 X10*3/uL (0.0-0.012); NRBC Pct Auto 0.0 /100WBC (0.0-0.2); Platelet Count 301 X10*3/uL (160-400); Red Blood Count 4.46 X10*6/uL (4.20-5.50); White Blood Count 5.7 X10*3/uL (4.8-10.8)
[2025-03-30 19:33] LABS: INTERNATIONAL NORM RATIO 1.0 (0.9-1.1); Prothrombin Time 11.5 SEC (10.9-12.4)
[2025-03-30 19:42] LABS: Alanine Aminotransferase 17 U/L (0-31); Albumin Level 4.0 g/dL (3.5-5.0); Alkaline Phosphatase 91 U/L (39-117); Anion Gap 12 (12-20); Aspartate Amino Transferase 20 U/L (5-31); Blood Urea Nitrogen 10 mg/dL (9-16); Calcium 8.8 mg/dL (8.4-10.2); Carbon Dioxide 27 mmol/L (22-29); Chloride 107 mmol/L (96-108); Creatinine Clr Calc Pharmacy 124.0; Estimated Glomerular Filt Rate > 60; Magnesium 2.0 mg/dL (1.6-2.6); Potassium 3.7 mmol/L (3.3-5.1); Sodium 142 mmol/L (135-145); Total Protein 7.7 g/dL (6.5-8.0)
[2025-03-30 19:43] LABS: Troponin-I High Sensitivity 16.0 ng/L (<3.5-17.0)
[2025-03-30 19:44] LABS: COVID-19 Test Negative (Negative); IDNOW Serial# 08D9AD1C
[2025-03-30 20:04] LABS: IDNOW Serial# 6674DD1D; Influenza B2 Negative (Negative)
[2025-03-30 20:47] VITALS: BP 118/74; PULSE 71; RESP 18; TEMP 36.7; O2SAT 98
--- OUTSIDE RECORDS SUMMARY | 2025-03-30 20:53 | XMS_ITS | Clinical Summary ---
Author Organization [facility] Address [address] [place] [address] Care Team Providers Care Insurance Broker Name Role Phone Unavailable Primary Care Provider Unavailabl e Allergies Active Allergy Reactions Criticality Noted Date Comments Atomoxetine Palpitations Low 07/12/2024 Gadolinium High 03/29/2023 Other Reaction(s): Angina Pt states she has had episodes of nausea and vomiting during prior injections of gadolinium. She had one episode of chest pain with injection of gadolinium. Hydromorphone High 03/29/2023 Other Reaction(s): Angina, severe chest pain Iodinated Contrast Media 11/03/2023 Ketorolac High 03/29/2023 Other Reaction(s): Angina Ketorolac Tromethamine Other 11/03/2023 Other Reaction(s): Claustrophobia Lamotrigine Hives,Rash Low 03/29/2023 Morphine Hives 09/29/2023 Oxcarbazepine Hives,Rash Low 03/29/2023 Pineapple Hives 11/03/2023 Tramadol 09/29/2023 Medications carvedilol (Coreg) 25 MG tablet Take 25 mg by mouth twice a day. 07/12/2024 Active Hospital, Clinic, or Other Facility Administered Medication Ordered Dose Route Frequency Start Date End Date Status Levonorgestrel (Kyleena) 19.5 MG IUD Intrauterine Device 1 eachIndications:Encounter for initial prescription of intrauterine contraceptive device 1 each IU Continuous 08/04/2024 08/03/2029 Acti ve Active Problems Problem Noted Date Diagnosed Date Abnormal computed tomography scan 08/04/2024 Overview (08/04/2024): Seen by neuro, not concerning and stable for almost 20 yearsRepeat MRI 04/2021: Benign-appearing well-circumscribed 7 mm lesion in the right anterior superior parietal calvarium. Signal intensity suggesting fat content. It is unchanged in size from CT dating back to 2004.Lytic structure on R parietal bone on CT done at [facility] 11/06/20, neuro and MRI appts pending as of 12/05/20 Arthralgia of multiple joints 02/02/2024 Overview (08/04/2024): Last Assessment & Plan: She has arthralgias in multiple areas without warm or swollen joints. She does not appear to have rheumatoid arthritis or other inflammatory arthritis, even though she was found to have a positive rheumatoid factor. Will send her for some repeat labs including rheumatoid studies and inflammatory markers. I am fully expecting her rheumatoid studies to be negative. Cardiac murmur, unspecified 01/30/2024 Overview (08/04/2024): Last Assessment & Plan: Echocardiogram shows a mild tricuspid insufficiency as well as a trace mitral valve regurgitation. We did discuss good blood pressure control and trying to lose weight. I have suggested that she try to get more exercise as some of her symptoms may be related to being deconditioned. Palpitations 01/30/2024 Overview (08/04/2024): Last Assessment & Plan: She continues to feel palpitations however her Holter monitor does not reveal any arrhythmias other than sinus tachycardia. She is on carvedilol 12.5 mg twice daily which we are going to increase to 25 mg twice daily. Shortness of breath 01/30/2024 Overview (08/04/2024): Last Assessment & Plan: We will see what symptoms that she has on the treadmill Benign essential hypertension 09/29/2023 Overview (08/04/2024): Last Assessment & Plan: She reports her blood pressures seem to be elevated and all over the place . I asked her what her blood pressure readings were at home but she states her blood pressure cuff is not working. She reports that she feels her blood pressure is up when she can feel this in her head. She is on carvedilol 12.5 mg twice daily. She did have a heart monitor which did show sinus tachycardia with a high rate of 145 bpm. We are going to go ahead and increase her carvedilol to 25 mg twice daily. We did discuss remaining on carvedilol 12.5 mg daily and taking the other half of the 12.5 mg when she is noticing having a higher blood pressure reading however for now we are going to go ahead and increase her carvedilol to 25 mg twice daily to see how she does on this. She is also on spironolactone 25 mg twice daily. She is encouraged follow her healthy diet including low-sodium and exercise. She is strongly encouraged to lose weight. Cervico-occipital neuralgia 09/29/2023 Obesity 09/29/2023 Prediabetes 09/29/2023 Proteinuria 09/29/2023 Sleep apnea 09/29/2023 Immunizations Immunization Administration Dates Next Due DTaP 09/01/1996, 3,04/20/1992,03/08,1991 HPV, Quadrivalent 08/03/2015,06/25/2010,10/07/19 08 Hep B, Unspecified 09/01/1996,05/19/1996, 993 HiB, unspecified 12/20/1992,05/03/1992, 2 IPV 09/01/1996, 3,03/08/1992,09/01 Influenza Whole 05/20/2007 Influenza, injectable, quadr ivalent, preservative free 04/14/2023,04/26/2022,05/02/2016,08/03 Influenza, seasonal, injectable 05/16/20 21,06/16/2018,07/06/2017,04/25,07/10/2010 MMR 09/01/1996,09/27/1992 Meningococcal MPSV4 08/14/2010 Td (adult), unspecified 12/07/2003 Tdap 07/06/2017,07/29/2015 Family History Medical History Relation Comments No Known Problems Brother No Known Problems Father Cardiovascular disease AMAB less than age 55, AF AB less than age 65 Mother Stroke AMAB less than age 55, AFAB less than age 65 Other No Known Problems Parent No Known Problems Sibling No Known Problems Sister Relation Status Comments Brother Father Mother Other Parent Sibling Sister Social History Tobacco Use Types Packs/Day Years Used Date Smoking Tobacco: Never Passive Smoke Exposure: Never Smokeless Tobacco: Never Tobacco Cessation:Counseling Given: Not Answered Alcohol Use Standard Drinks/Week Comments Not Currently 0 (1 standard drink = 0.6 oz pur e alcohol) PP Intimate Partner Violence Answer Curtis e Recorded Physically Abused No 08/04/2024 Reproductive coercion No 08/04/2024 Unsafe living situation No 08/04/19 25 Forced to do things No 08/04/2024 E-Cigarette/Vaping History Answer Date Recorded E-Cigarette Use Never User 08/04/2024 Contains THC? Not on file 08/04/2024 Contains Nicotine Not on file 08/04/2024 Vaping Containing CBD? Not on file Vaping Containing Flavoring? Not on file Vaping - Other Substances? Not on file 08/04 Comments No Sex and Gender Information Value Date Recorded Sex Assigned at Female 08/04/2024 8:22 AM TURBINE INSPECTOR Legal Sex Female 6:14 PM CDT Gender Identity Female 04/29/2022 6:14 PM CDT Sexual Orientation Straight 08/04/2024 8: 22 AM TURBINE INSPECTOR Last Filed Vital Signs Vital Sign Reading Time Taken Comments Blood Pressure 114/78 08/04/2024 2:40 PM EST Pulse 79 08/04/2024 2:40 PM EST Temperature 37.2 C (99 F) 08/04/2024 10:45 AM EST Respiratory Rate 16 08/04/2024 2:40 PM EST Oxygen Saturation 97% 08/04/2024 2:40 PM EST Inhaled Oxygen Concentration - - Weight 93 kg (205 lb) 08/04/2024 10:45 AM EST Height 157.5 cm (5' 2 ) 08/04/2024 10:45 AM EST Body Mass Index 37.49 08/04/2024 10:45 AM EST Plan of Treatment Health Maintenance Due Date Last Done Comments HIV Screening 1991 Hepatitis C Screening 1991 Lipid Panel 1991 Diabetes Screening 2009 Hepatitis B Vaccines (1 of 3 - 19+ 3-dose series) 2010 09/01/1996, 05/19/1996, 09/18/1992 Pap Smear 2012 Cervical Cancer Screening 2016 HPV/Cotest 2016 HPV Vaccines (1 - 3-dose SCDM series) 2018 Influenza Vaccine (#1) 2025 , 04/26/2022, 05/16/2021, Additional history exists DTaP,Tdap,and Td Vaccines (8 - Td or Tdap) 07/06/2027 07/06/2017, 07/29/2015, 12/07/2003, Additional history exists Hepatitis A Vaccines Aged Out No long er eligible based on patient's age to complete this topic Procedures Procedure Name Priority Date/Time Associated Diagnosis Comments AK INSERTION INTRAUTERINE DEVICE IUD Routine 08/04/2024 2:09 PM EST Encounter for insertion of contraceptive device CHG LEVEL I SURG PATHOLOGY GROSS EXAMINATION ONLY Routine 08/04/2024 1:44 PM EST Induced Less than 8 weeks gestation of AK INJECTION AA&/STRD PARACERVICAL NERVE Routine 08/04/2024 1:44 PM EST Induced Less than 8 weeks gestation of AK INDUCED DILATION & EVACUATION Routine 08/04/2024 1:44 PM EST Induced Less than 8 weeks gestation of US Routine 08/04/2024 10:35 AM EST Induced since 03/30/2015 Insurance [facility] M[employer] ACO
--- OUTSIDE RECORDS SUMMARY | 2025-03-30 20:53 | XMS_ITS | Encounter Summary ---
Author Organization [facility] Address [address] [place] [phone] Phone Care Team Providers Care Medical Coder Name Role Phone Sharmila Pitts RN Unavailable Carrie Arias MD Primary Care Provider [phone] Hayde Montoya Unavailable [email or web address] Encounter Details Date Type Department Care Team (Late st Contact Info) Description 10/27/2024 Procedure Pass [facility] EKG [address] [place] [address] Social History Tobacco Use Types Packs/Day Years Used Date Smoking Tobacco: Never Smokeless Tobacco: Never Alcohol Use Standard Drinks/Week Comments Not Currently 0 (1 standard drink = 0.6 oz pure alcohol) Patient has tried alcohol in the past (about 3 years ago) but reports having chest pain and passing out, so has not had any since. Education Answer Date Recorded Are you interested in more education? Not on cara e 12/11/2022 Are you concerned about learning? Not on file 12/11/2022 No 12/11/2022 No 12/11/2022 Digital Access Answer Date Recorded No 12/11/2022 No 12/11/2022 Reliable internet access at home? Not on file 12/11/2022 Device with a working camera? Not on file Intimate Partner Violence Answer Date R ecorded Are you denied basic needs s uch as food, clothing, or medical care? No 10/26/2024 In the past 12 months have y ou been in a relationship with a person who hurts, threatens, or tries to control you? No 10/26/2024 Are you denied basic needs s uch as food, clothing, or medical care? No 10/26/2024 In the past 12 months have y ou been in a relationship with a person who hurts, threatens, or tries to control you? No 10/26/2024 Comments No Sex and Gender Information Value Date Recorded Sex Assigned at Female 08/11/2024 2:01 AM EST Legal Sex Female 9:00 PM EDT Gender Identity Female 08/11/2024 2:01 AM EST Sexual Orientation Straight 08/11/2024 2: 01 AM EST documented as of this encounter Plan of Treatment Upcoming Encounters Date Type Department Care Team (Late st Contact Info) Description 04/11/2025 8:00 AM EDT Office Visit [facility] Cardiovascular Clinic [address] [place] [address] Fuad Whaley, BRANDY [address] [place] [address] [email or web address] 05/11/2025 2:40 PM EDT Office Visit [facility] Cardiovascular Clinic [address] [place] [address] Ro Fortune MD, MPH [address] [place] [address] [email or web address] 07/01/2025 2:00 PM EST Office Visit [facility] Neurology [address] [place] [address] Joaquin Baptiste MD [address] [place] [address] [email or web address] 07/07/2025 10:50 AM EST Office Visit [facility]ocrinology [address] [place] [address] Bud Orellana DO [address] [place] [address] documented as of this encounter Visit Diagnoses Not on filedocumented in this encounter Additional Health Concerns Assessment Noted Time PHQ-9 Depression Total Score: 17 024 10:00 AM EST PHQ-2 Depression Total Score: 4 09/26/19 24 10:00 AM EST documented as of this encounter Care Teams Medical Coder Relationship Specialty Start Date End Date Carrie Arias MD [address] [place] [phone] [email or web address] [email or web address] - General Family Medicine 08/11/24 Sharmila Pitts RN [address] [place] [phone] [facility] Graph[facility] Arts Technician 08/29/23 Hayde Montoya [address] [place] [address] [email or web address] [facility] Community Health Worker 11/02/24 12/01/24 documented as of this encounter Additional Source Comments The information contained in this document represents components of the legal health record. It is not the complete legal health record.[facility]
--- OUTSIDE RECORDS SUMMARY | 2025-03-30 20:53 | XMS_ITS | Encounter Summary ---
Author Organization [facility] Address [address] [place] [address] Phone Care Team Providers Care Video Tape Editor Name Role Phone Sharmila Pitts RN Unavailable Carrie Arias MD Primary Care Provider [phone] Reason for Visit * Reason Onset Date Comments Dr Paz / symptoms 12/03/2024 Encounter Details Date Type Department Care Team (Late st Contact Info) Description 12/03/2024 Nurse Triage [facility]- Renal [address] [place] [address] Phil Paz MD [address] [place] [address] [email or web address] Dr Paz / symptoms Social History Tobacco Use Types Packs/Day Years [...] AM EST documented as of this encounter Progress Notes * Katrina Min - 12/08/2024 3:08 PM EDT Pt calling with an update. Pt went to ED twice for symptoms. Pt thinks the ED did not test for her kidneys and pt advised to follow up with Renal providers. Pt's symptoms persist: - chest pain - kidney pain, slasher tender helper and sore - hives and rashes, pt will fu with rhumatology for that - blood pressure has been 168/110 higher than average of 132/98 Pt has follow up appt with Dr Paz 02/21 and the appt is on a wait list. Pt not sure if she needs to re-do 24 hr urine test as she did not complete two in a row. Pt filled out a form for [employer], for Genetic testing. Not sure what the status is. Please call to advise. Katrina Khan Patient Glass Blower Department of Medicine, Access Center * Mairan Vazquez RN - 12/03/2024 4:06 PM EDT Situation: Key Denice messaged in patient gateway today for hurting sore and tender kidneys, Palpitationsand chest pain. Background: 34 y.o F with hx of chest pain,palpitations sob and hypertension Last OV on 11/29/24 Assessment/Action: Pt reports worsening chest pain today as compared to when in office on Friday. Chest pain lasting longer than 5 min. Denies any headache or visible sweat. Speech unaffected, using full sentences while on phone with RN Endorses palpitations, not sure if rapid heart rate. Pain worsens with activity- unsure if radiating toward arm or jaw. Response/Recommendation: Pt advised to present to ED at this time. Pt voiced barriers to coming to ER - childcare, and transportation. RN reinforced importance of presenting to ER as soon as able. Call routed to MD for awareness and any other recommendations. documented in this encounter Plan of Treatment Upcoming Encounters Date Type Department Care Team (Late st Contact Info) Description 04/11/2025 8:00 AM EDT Office Visit [facility] Clinic [address] [place] [address] Fuad Whaley, HYPERBARIC NURSE 75 [place] [address] 05/11/2025 2:40 PM EDT Office Visit [facility] [address] [place] [address] Ro Fortune MD, MPH 75 [facility] [address] [place] [address] [email or web address] 07/01/2025 2:00 PM EST Office Visit [facility] Neurology 60 [place] [address] Joaquin Baptiste MD 60 [place] [address] [email or web address] 07/07/2025 10:50 AM EST Office Visit [place] [address] [place] [address] [email or web address] documented as of this encounter Visit Diagnoses Not on filedocumented in this encounter Additional Health Concerns Assessment Noted Time PHQ-9 Depression Total Score: 17 024 10:00 AM EST PHQ-2 Depression Total Score: 4 09/26/19 24 10:00 AM EST documented as of this encounter Care Teams Video Tape Editor Relationship Specialty Start Date End Date Carrie Arias MD [address] [place] [phone] [email or web address] PCP - General Family Medicine 08/11/24 Sharmila Pitts RN [address] [place] [address] [email or web address] [email or web address] Manager Environmental Health 08/29/23 documented as of this encounter Additional Source Comments The information contained in this document represents components of the legal health record. It is not the complete legal health record.[facility]
--- OUTSIDE RECORDS SUMMARY | 2025-03-30 20:53 | XMS_ITS | Encounter Summary ---
Author Organization [facility] Address [address] [facility] [address] [place] [address] Phone Care Team Providers Care Senior Administrator Support Name Role Phone Carrie Arias MD Primary Care Provider [phone] Sharmila Pitts RN Unavailable Carrie Arias MD Primary Care Provider [phone] Hayde Montoya Unavailable Encounter Details Date Type Department Care Team (Late st Contact Info) Description 01/30/2024 Procedure Pass [facility] [address] [place] [address] Social History Tobacco Use Types Packs/Day Years [...] as food, clothing, or medical care? No 06/14/2023 In the past 12 months have y ou been in a relationship with a person who hurts, threatens, or tries to control you? No 06/14/2023 Are you denied basic needs s uch as food, clothing, or medical care? No 06/14/2023 In the past 12 months have y ou been in a relationship with a person who hurts, threatens, or tries to control you? No 06/14/2023 Comments No Sex and Gender Information Value [...] Description 04/11/2025 8:00 AM EDT Office Visit [facility] Cardiovascular Clinic [address] [place] [address] Fuad Whaley, CONCRETE BLOCK LAYER [address] [place] [address] 05/11/2025 2:40 PM EDT Office Visit [facility] Clinic [address] [place] [address] Ro Fortune MD, MPH [address] [place], [place] [address] [address] [email or web address] 07/01/2025 2:00 PM EST Office Visit [facility] Neurology 60 [place] [address] Joaquin Baptiste MD 60 [place] [address] [email or web address] 07/07/2025 10:50 AM EST Office Visit [facility] [address] [place] [address] Bud Orellana DO 22 [place] [address] [email or web address] documented as of this encounter Visit Diagnoses Not on filedocumented in this encounter Additional Health Concerns Assessment Noted Time PHQ-9 Depression Total Score: 17 024 10:00 AM EST PHQ-2 Depression Total Score: 4 09/26/19 24 10:00 AM EST documented as of this encounter Care Teams Senior Administrator Support Relationship Specialty Start Date End Date Carrie Arias MD PCP - General Family Medicine 01/23/23 08/10/24 Carrie Arias MD [address] [place] [phone] [email or web address] PCP - General Family Medicine 08/11/24 Sharmila Pitts, RN [address] [place] [address] [facility] Tube Closing Machine Operator 08/29/23 Hayde Montoya [address] [place] [address] [email or web address] [facility] Community Health Worker 11/02/24 12/01/24 documented as of this encounter Additional Source Comments The information contained in this document represents components of the legal health record. It is not the complete legal health record.[facility]
--- OUTSIDE RECORDS SUMMARY | 2025-03-30 20:53 | XMS_ITS | Encounter Summary ---
Author Organization [facility] Address [address] [facility] [address] [place] [address] Phone Care Team Providers Care Bottle Sorter Name Role Phone Sharmila Pitts RN Unavailable Carrie Arias MD Primary Care Provider [phone] Reason for Visit * Reason Onset Date Comments Dr. Paz/pt advice 02/10/2025 Encounter Details Date Type Department Care Team (Late st Contact Info) Description 02/10/2025 Telephone [facility]- Renal [address] [place] [address] Phil Paz MD [address] [place] [address] [email or web address] Dr. Paz/pt advice Social History Tobacco Use Types Packs/Day Years [...] as of this encounter Progress Notes * Girish Whipple - 02/10/2025 11:34 AM EDT Pt reports that Dr. Phil Paz was supposed to put in an order for an u/s. She is trying to have it done as soon as possible. Please place the order. Key [phone] Thank you Girish Rodriguez Patient High School Science Tutor Department of Medicine, Access Center documented in this encounter Plan of Treatment Upcoming Encounters Date Type Department Care Team (Late st Contact Info) Description 04/11/2025 8:00 AM EDT Office Visit [facility] Cardiovascular Clinic 70 [place] [address] Fuad Whaley, BRANDY 75 [place] [address] 05/11/2025 2:40 PM EDT Office Visit [facility] 70 [place] [address] Ro Fortune MD, MPH [address] [address] [email or web address] 07/01/2025 2:00 PM EST Office Visit [facility] Neurology 60 [place] [address] Joaquin Baptiste MD 60 [place] [address] [email or web address] 07/07/2025 10:50 AM EST Office Visit [facility] 22 [place] [address] Bud Orellana DO 22 [place] [address] documented as of this encounter Visit Diagnoses Not on filedocumented in this encounter Additional Health Concerns Assessment Noted Time PHQ-9 Depression Total Score: 17 024 10:00 AM EST PHQ-2 Depression Total Score: 4 09/26/19 24 10:00 AM EST documented as of this encounter Care Teams Bottle Sorter Relationship Specialty Start Date End Date Carrie Arias MD [address] [place] [phone] [email or web address] PCP - General Family Medicine 08/11/24 Sharmila Pitts, LINDSEY [address] [place] [address] [employer] Horse Breeder 08/29/23 documented as of this encounter Additional Source Comments The information contained in this document represents components of the legal health record. It is not the complete legal health record.[facility]
--- OUTSIDE RECORDS SUMMARY | 2025-03-30 20:53 | XMS_ITS | Encounter Summary ---
Author Organization [facility]. Address [address] [address] Phone Care Team Providers Care Various Exceptionalities Teacher Name Role Phone Carrie Arias MD Primary Care Provider [phone] Encounter Details Date Type Department Care Team (Late st Contact Info) Description 06/06/2024 Office Communication [facility] [address] [phone] Shakila ReyesferADRIANNA [address] [phone] Social History Tobacco Use Types Packs/Day Years [...] on filedocumented in this encounter Care Teams Various Exceptionalities Teacher Relationship Specialty Start Date End Date Carrie Arias MD [address] [place] [address] PCP - General Family Medicine 09/29/23 documented as of this encounter
--- OUTSIDE RECORDS SUMMARY | 2025-03-30 20:53 | XMS_ITS | Encounter Summary ---
Author Organization [facility] Address [address] [address] Phone Care Team Providers Care Nutrition Partner Name Role Phone Pcp, Unknown Primary Care Provider Unavailabl e Carrie Arias MD Primary Care Provider [phone] Carrie Arias MD Unavailable [phone] Sharmila Pitts RN Unavailable Sharmila Pitts RN Unavailable Sailaja Garcia Unavailable [email or web address] Carrie Arias MD Primary Care Provider [phone] Hayde Montoya Unavailable [email or web address] Reason for Referral * MRI/CAT Scan - Closed Specialty Diagnoses / Procedures Referred By Randall t Referred To Contact Radiology Diagnoses Other amnesia Procedures MRI Brain CHG MRI BRAIN Carrie Arias MD Phone: tel: fax: [email or web address] Referral ID Status Reason Start Date Expiration Date Visits Re quested Visits Authorized [id number] Closed 11/20/2022 1 1 Encounter Details Date Type Department Care Team ([facility] st Contact Info) Description 11/20/2022 Transcribe Orders [facility] Department [address] [place] [address] Carrie Arias MD [address] [place] [address] Other amnesia (Primary Dx) Social History Tobacco Use Types Packs/Day Years Used Date Smoking Tobacco: Never Assessed Comments Unknown Sex and Gender Information Value [...] Description 04/11/2025 8:00 AM EDT Office Visit [facility] Cardiovascular Clinic 70 [place] [address] Fuad Whaley, DELIVERY NURSE 75 [place] [address] 05/11/2025 2:40 PM EDT Office Visit [facility] Cardiovascular Clinic 70 [place] [address] Ro Fortune MD, MPH 75 [facility] [address] [place] [address] [email or web address] 07/01/2025 2:00 PM EST Office Visit [facility] Neurology 60 [place] [address] Joaquin Baptiste MD 60 [place] [address] [email or web address] 07/07/2025 10:50 AM EST Office Visit [facility] 22 [place] [address] Bud Orellana DO 22 [place] [address] documented as of this encounter Results * MRI BRAIN WITHOUT CONTRAST (03/29/2023 7:40 AM EDT) Anatomical Region Laterality Modality Head Magnetic Resonan ce 03/30/2023 1:26 PM EDT Addenda Addendum by Doa Unger MD on 04/02/2023 10:35 PM EDT ADDENDUM: Comparison is made to prior brain MRI from 04/22/2021, which demonstrates stability of the right parietal bone lesion. 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 No evidence of intracranial abnormality. Narrative 03/30/2023 3:28 PM EDT MRI BRAIN WITHOUT CONTRAST TECHNIQUE: MRI BRAIN WITHOUT CONTRAST Multi-sequence, multi-planar MRI of the brain was performed without intravenous contrast. COMPARISON: None FINDINGS: Brain Parenchyma: Normal. No evidence of acute infarct, mass lesion, or hemorrhage. Ventricular System and Extra-Axial Spaces: Normal. No evidence of midline shift or hydrocephalus. Extracranial Structures: Arterial flow voids in the skull base are present. There is an 8 mm T1 hyperintense, T2 hyperintense lesion right paramedian parietal bone on 5:26. Procedure Note Dao Unger MD - 03/30/2023 MRI BRAIN WITHOUT CONTRAST TECHNIQUE: MRI BRAIN WITHOUT CONTRAST Multi-sequence, multi-planar MRI of the brain was performed withoutintravenous contrast. COMPARISON: None FINDINGS: Brain Parenchyma: Normal. No evidence of acute infarct, mass lesion, orhemorrhage. Ventricular System and Extra-Axial Spaces: Normal. No evidence of midlineshift or hydrocephalus. Extracranial Structures: Arterial flow voids in the skull base arepresent. There is an 8 mm T1 hyperintense, T2 hyperintense lesion rightparamedian parietal bone on 5:26. IMPRESSION: 8 mm right parietal bone lesion with benign features, which may reflect abenign intraosseous hemangioma. No evidence of intracranial abnormality. Carrie Arias MD IMG MR HEAD/NECK Edited Res ult - Final documented in this encounter Visit Diagnoses Diagnosis Other amnesia- Primary Other amnesia documented in this encounter Care Teams Nutrition Partner Relationship Specialty Start Date End Date Pcp, Unknown PCP - General 12/03/22 01/22/23 Carrie Arias MD [email or web address] PCP - General Family Medicine 01/23/23 08/10/24 Carrie Arias MD [address] [place] [phone] [email or web address] PCP - General Family Medicine 08/11/24 Carrie Arias MD [address] [place] [address] [email or web address] Insurance Assigned Provider 02/23/23 04/26/23 Sharmila Pitts RN [address] [place] [phone] [facility] Cook Frozen Dessert 06/10/23 07/07/23 Sharmila Pitts RN [address] [place] [address] [facility] Cook Frozen Dessert 08/29/23 Sailaja Garcia [address] [place] [address] [email or web address] [facility] Community Master Ship 11/27/23 11/27/23 Hayde Montoya [address] [place] [address] [facility] Community Health Worker 11/02/24 12/01/24 documented as of this encounter Additional Source Comments The information contained in this document represents components of the legal health record. It is not the complete legal health record.[facility]
--- OUTSIDE RECORDS SUMMARY | 2025-03-30 20:53 | XMS_ITS | Encounter Summary ---
Author Organization [facility] Address [address] [facility] [address] [place] [address] Phone Care Team Providers Care Receptionist Doctor'S Office Name Role Phone Carrie Arias MD Primary Care Provider [phone] Sharmila Pitts RN Unavailable Sailaja Garcia Unavailable [email or web address] Carrie Arias MD Primary Care Provider [phone] Hayde Montoya Unavailable [email or web address] Encounter Details Date Type Department Care Team (Late st Contact Info) Description 08/20/2023 Procedure Pass [facility], [address] [address] Social History Tobacco Use Types Packs/Day Years Used Date Smoking Tobacco: Never Assessed Education Answer Date Recorded Are you interested [...] Description 04/11/2025 8:00 AM EDT Office Visit [facility] Cardiovascular Clinic 70 [place] [address] Fuad Whaley CNP 75 [place] [address] 05/11/2025 2:40 PM EDT Office Visit [facility] Cardiovascular Clinic 70 [place] [address] Ro Fortune MD, MPH 75 [facility] [place] [address] [email or web address] 07/01/2025 2:00 PM EST Office Visit [facility] Neurology 60 [place] [address] Joaquin Baptiste MD 60 [place] [address] [email or web address] 07/07/2025 10:50 AM EST Office Visit [facility] 22 [place] [address] Bud Orellana DO 22 [place] [address] documented as of this encounter Visit Diagnoses Not on filedocumented in this encounter Care Teams Receptionist Doctor'S Office Relationship Specialty Start Date End Date Carrie Arias MD [email or web address] PCP - General Family Medicine 01/23/23 08/10/24 Carrie Arias MD [address] [place] [phone] [email or web address] PCP - General Family Medicine 08/11/24 Sharmila Pitts RN [address] [place] [address] [facility] Cyber Ops Planner 08/29/23 Sailaja Garcia [address] [place] [address] [email or web address] [facility] Community Wastewater Design Engineer 11/27/23 11/27/23 Hayde Montoya [address] [place] [address] [email or web address] [facility] Community Health Worker 11/02/24 12/01/24 documented as of this encounter Additional Source Comments The information contained in this document represents components of the legal health record. It is not the complete legal health record.[facility]
--- OUTSIDE RECORDS SUMMARY | 2025-03-30 20:53 | XMS_ITS | Clinical Summary ---
Author Organization [facility] Address [address] [phone] Phone Care Team Providers Care Hand Box Folder Name Role Phone Carrie Arias MD Primary Care Provider [phone] Allergies Active Allergy Reactions Criticality Noted Date [...] for mild pain Active ergocalciferol 1.25 MG (02976 UT) capsule Take 50,000 Units by mouth [...] Diabetes: Visual Foot Exam 11/03/2023 Influenza Vaccine (#1) 2025 3, 04/26/2022, 05/16/2021, Additional history exists Hepatitis B Vaccine Completed 09/01/1996, 05/19/1996, 09/18/1992 Insurance Medicaid [place] [facility] Care Teams Hand Box Folder Relationship Specialty Start Date End Date Carrie Arias MD [address] [place] [phone] PCP - General Family Medicine 09/29/23
--- OUTSIDE RECORDS SUMMARY | 2025-03-30 20:53 | XMS_ITS | Clinical Summary ---
Author Organization [facility] Address [address] [place] [address] Care Team Providers Care Java Lead Engineer Name Role Phone Unavailable Primary Care Provider [...] Cervical Cancer Screening: P ap Smear 2012 HIV Screening 06/18/2022 Hepatitis C Screening 06/18/2022 Social Influencers of Health Screening 06/18/2022 Depression Screening 07/21/2024 COVID-19 Vaccine ( - 2023-2 5 season) 2025 Influenza Vaccine (#1) 2025 HIB Vaccines Aged Out No longer [...] and At-Risk Patients (6 to 49 Years) Aged Out No longer eligible b ased on patient's age to complete this topic RSV Immunization Patients Un judson 20 months Aged Out No longer eligible b ased on patient's age to complete this topic Varicella Vaccines Aged Out No longer eligible based on patient's age to complete this topic
--- OUTSIDE RECORDS SUMMARY | 2025-03-30 20:53 | XMS_ITS | Encounter Summary ---
Author Organization [facility] Address [address] [place] [address] Phone Care Team Providers Care General Maintenance Helper Name Role Phone Sharmila Pitts RN Unavailable Carrie Arias MD Primary Care Provider [phone] Reason for Referral * - Closed Specialty Diagnoses / Procedures Referred By Contac t Referred To Contact Radiology Diagnoses Hypertension, unspecified type Procedures US Renal Artery/ Veins Duplex US Abdomen Complete With Vasculature (Doppler) Phil Paz MD [address] [place] [address] Phone: tel: fax: [email or web address] Referral ID Status Reason Start Date Expiration Date Visits Re quested Visits Authorized [id number] Closed 02/21/2025 1 1 Encounter Details Date Type Department Care Team (Late st Contact Info) Description 03/07/2025 Ancillary Orders [facility]- Renal [address] [place], [place] [address] [place] [address] Phil Paz MD [address] [place] [address] [email or web address] Hypertension, unspecified type (Primary Dx); Albuminuria Social History Tobacco Use Types Packs/Day Years [...] Description 04/11/2025 8:00 AM EDT Office Visit [facility] [address] [place] [address] Fuad Whaley, BRANDY [address] [place] [address] 05/11/2025 2:40 PM EDT Office Visit [facility] [address] [place] [address] Ro Fortune MD, MPH [address] [facility] [address] [place] [address] [email or web address] 07/01/2025 2:00 PM EST Office Visit [facility] Neurology [address] [place] [address] Joaquin Baptiste MD 60 [place] [address] [email or web address] 07/07/2025 10:50 AM EST Office Visit [facility] [address] [place] [address] Bud Orellana DO 22 [place] [address] documented as of this encounter Results * US RENAL ARTERIES AND VEINS DUPLEX COMPLETE (03/07/2025 8:34 AM EDT) Anatomical Region Laterality Modality Abdominal Vasculature Ultrasound 03/07/2025 8:37 AM EDT Narrative 03/07/2025 3:14 PM EDT US RENAL ARTERIES AND VEINS DUPLEX COMPLETE Referring clinician's provided indication for this examination in Epic: Renovascular HTN suspected, normal renal function TECHNIQUE: A duplex ultrasound evaluation of the renal arteries and veins, was performed using a combination of wilson scale imaging, color duplex and spectral Doppler analysis. COMPARISON: CT ABDOMEN/PELVIS (KIDNEY STONE) WITHOUT CONTRAST FINDINGS: Exam Quality: Technically limited exam demonstrates: AORTA (cm/s) Aorta: 111 RIGHT: Kidney length: 12.0 cm Renal Artery (cm/s) Ostium: 111 Proximal: 122 Mid: 140 Distal: 73 Distal AT: 0.05 sec RAR: N/A Renal Vein: Patent with normal spectral Doppler waveforms. Resistance Index (RI): Upper Pole: 0.6 Mid: 0.6 Lower Pole: 0.7 Resistance Index: Normal Acceleration Time: Normal Renal/Aortic Ratio: invalid Renal Artery Stenosis: 1-59% LEFT: Kidney length: 11 cm Renal Artery (cm/s) Ostium: 112 Proximal: 143 Mid: 99 Distal: 63 Distal AT: 0.02 sec RAR: N/A Renal Vein: Patent with normal spectral Doppler waveforms. Resistance Index (RI): Upper Pole: 0.5 Mid: 0.6 Lower Pole: 0.6 Resistance Index: Normal Acceleration Time: Normal Renal/Aortic Ratio: invalid Renal Artery Stenosis: 1-59% IMPRESSIONS: * No evidence of renal artery stenosis bilaterally. Procedure Note Narendra Kennedy MD, MANDO - 03/07/2025 US RENAL ARTERIES AND VEINS DUPLEX COMPLETE Referring clinician's provided indication for this examination in Epic:Renovascular HTN suspected, normal renal function TECHNIQUE: A duplex ultrasound evaluation of the renal arteries and veins,was performed using a combination of wilson scale imaging, color duplex andspectral Doppler analysis. COMPARISON: CT ABDOMEN/PELVIS (KIDNEY STONE) WITHOUT [id number] FINDINGS: Exam Quality: Technically limited exam demonstrates: AORTA (cm/s) Aorta: 111 RIGHT: Kidney length: 12.0 cm Renal Artery (cm/s) Ostium: 111 Proximal: 122 Mid: 140 Distal: 73 Distal AT: 0.05 sec RAR: N/A Renal Vein: Patent with normal spectral Doppler waveforms. Resistance Index (RI): Upper Pole: 0.6 Mid: 0.6 Lower Pole: 0.7 Resistance Index: Normal Acceleration Time: Normal Renal/Aortic Ratio: invalid Renal Artery Stenosis: 1-59% LEFT: Kidney length: 11 cm Renal Artery (cm/s) Ostium: 112 Proximal: 143 Mid: 99 Distal: 63 Distal AT: 0.02 sec RAR: N/A Renal Vein: Patent with normal spectral Doppler waveforms. Resistance Index (RI): Upper Pole: 0.5 Mid: 0.6 Lower Pole: 0.6 Resistance Index: Normal Acceleration Time: Normal Renal/Aortic Ratio: invalid Renal Artery Stenosis: 1-59% IMPRESSIONS: * No evidence of renal artery stenosis bilaterally. us Phil Paz MD IMG US ABDOMEN Final Result documented in this encounter Visit Diagnoses Diagnosis Hypertension, unspecified type Hypertension, unspecified type- Primary Albuminuria Proteinuria documented in this encounter Additional Health Concerns Assessment Noted Time PHQ-9 Depression Total Score: 17 024 10:00 AM EST PHQ-2 Depression Total Score: 4 09/26/19 10:00 AM EST documented as of this encounter Care Teams General Maintenance Helper Relationship Specialty Start Date End Date Carrie Arias MD [address] [place] [phone] [email or web address] PCP - General Family Medicine 08/11/24 Sharmila Pitts RN [address] [place] [address] [email or web address] Collar Closer Lockstitch 08/29/23 documented as of this encounter Additional Source Comments The information contained in this document represents components of the legal health record. It is not the complete legal health record.[facility]
--- OUTSIDE RECORDS SUMMARY | 2025-03-30 20:53 | XMS_ITS | Encounter Summary ---
Author Organization [facility] Address [address] [place] [address] Phone Care Team Providers Care Farm Machine Tender Name Role Phone Sharmila Pitts RN Unavailable Carrie Arias MD Primary Care Provider [phone] Encounter Details Date Type Department Care Team (Late st Contact Info) Description 12/27/2024 Ancillary Orders [facility]- Renal [address] [place] [address] Phil Paz MD [address] [place] [address] [email or web address] Hypertension, unspecified type (Primary Dx) Social History Tobacco Use Types [...] Description 04/11/2025 8:00 AM EDT Office Visit [facility] [address] [place] [address] Fuad Whaley, TOP BOTTOM ATTACHING MACHINE OPERATOR 75 [place] [address] 05/11/2025 2:40 PM EDT Office Visit [facility] [address] [place] [address] Ro Fortune MD, MPH [address] [place], [place] [phone] [place] [address] [email or web address] 07/01/2025 2:00 PM EST Office Visit [facility] Neurology [address] [place] [address] Joaquin Baptiste MD 60 [place] [address] [email or web address] 07/07/2025 10:50 AM EST Office Visit [facility] [address] [place] [address] [place] [address] [email or web address] documented as of this encounter Visit Diagnoses Diagnosis Hypertension, unspecified type- Primary documented in this encounter Additional Health Concerns Assessment Noted Time PHQ-9 Depression Total Score: 17 024 10:00 AM EST PHQ-2 Depression Total Score: 4 09/26/19 24 10:00 AM EST documented as of this encounter Care Teams Farm Machine Tender Relationship Specialty Start Date End Date Carrie Arias MD [address] [place] [phone] [email or web address] PCP - General Family Medicine 08/11/24 Sharmila Pitts RN [address] [place] [address] [email or web address] i[employer] Boiling Tub Operator 08/29/23 documented as of this encounter Additional Source Comments The information contained in this document represents components of the legal health record. It is not the complete legal health record.[facility]
--- OUTSIDE RECORDS SUMMARY | 2025-03-30 20:53 | XMS_ITS | Encounter Summary ---
Author Organization [facility] Address [address] [place] [address] Phone Care Team Providers Care Global Marketing Manager Name Role Phone Sharmila Pitts RN Unavailable Carrie Arias MD Primary Care Provider [phone] Reason for Visit * Reason Onset Date Comments Medication Management 01/24/2025 Encounter Details Date Type Department Care Team (Late st Contact Info) Description 01/24/2025 Telephone [facility]- Renal [address] [place] [address] Phil Paz MD [address] [place] [address] [email or web address] Medication Management Social History Tobacco Use Types Packs/Day Years [...] as of this encounter Progress Notes * Heaven Johnson - 02/08/2025 2:01 PM EDT Patient is calling back because she still didn't hear back from anyone. She doesn't know if she should cancel her MRI Thank you * Yessica Au - 02/07/2025 11:59 AM EDT Good Morning, Pt is calling to inform that she has reached to the MRI dept, and they told her to have Phil Tomlin or one of the nurses in team to call back the head of radiology for the pre med procedure, and they gave pt the following phone number [phone] extension [phone] to please get in touch as soon as possible. She stated was told by them that she needs to be pre medicated 13 hour before MRI and 1 hour before will be the last dose. Please advice. Thank you, Yessica Au * Mairan Vazquez RN - 02/07/2025 11:43 AM EDT Situation: Key Galdamez called today to follow up on medication for MRI . Background: 34 Y.O F with hx hypertension, anxiety disorder, and kidney stones. History of gadolium allergy. ZEN 11/29/2024 Next OV 02/21/25 Scheduled for MRI on 02/10/25 Assessment/Action: RN spoke to pt to get more information on medication needed for MRI with contrast. Pt states she is not sure of name, was not given to her by MRI. Per pt did get medication for previous MRI but cannot recall. Pt states has not heard from anyone since initial call on 01/24/25 and MRI already cancelled once.Would like call escalated for response. Response/Recommendation: RN reviewed chart to try to find name of previous med administered, but unable to locate. Reviewed with Pt would ask Dr. Paz to connect with Radiology to discuss plan and advise if contrast truly needed. Routed to MD for review and call to radiology [phone] extension [phone] . * Heaven Johnson - 02/07/2025 11:30 AM EDT Patient is calling back because her MRI is this and she needs the medicine for it She is asking for a call back to let her know that its done [phone] Thank you * Heaven Johnson - 01/27/2025 8:51 AM EDT Patient calling back to make sure Dr Paz received the stephanie message Thank you * Ishmael Rodriguez - 01/24/2025 10:36 AM EDT Pt had MRI scheduled but had to cancel due to contrast allergy. Pt states Dr Paz was supposedto write an rx to mitigate contrast allergy. Info was was provided to pt by MRI staff. Staff did not mention which drug dr paz was to prescribe. Pt is allergic to contrast. Pls write rx or call to discuss. Best number for call back is [phone] Thank you, [facility] Ishmael Acosta documented in this encounter Plan of Treatment Upcoming Encounters Date Type Department Care Team (Late st Contact Info) Description 04/11/2025 8:00 AM EDT Office Visit [facility] [address] [place] [address] Fuad Whaley, REGENERATION OPERATOR [address] [place] [address] 05/11/2025 2:40 PM EDT Office Visit [facility] [address] [place] [address] Ro Fortune MD, MPH [address] [facility] [address] [place] [address] [email or web address] 07/01/2025 2:00 PM EST Office Visit [facility] Neurology [address] [place] [address] Joaquin Baptiste MD 60 [place] [address] [email or web address] 07/07/2025 10:50 AM EST Office Visit [facility] [address] [place] [address] Bud Orellana DO 22 [place] [address] [email or web address] documented as of this encounter Visit Diagnoses Not on filedocumented in this encounter Additional Health Concerns Assessment Noted Time PHQ-9 Depression Total Score: 17 024 10:00 AM EST PHQ-2 Depression Total Score: 4 09/26/19 24 10:00 AM EST documented as of this encounter Care Teams Global Marketing Manager Relationship Specialty Start Date End Date Carrie Arias MD [address] [place] [address] [email or web address] PCP - General Family Medicine 08/11/24 Sharmila Pitts RN [address] [place] [address] [email or web address] iCMP Foundry Worker 08/29/23 documented as of this encounter Additional Source Comments The information contained in this document represents components of the legal health record. It is not the complete legal health record.[facility]
--- OUTSIDE RECORDS SUMMARY | 2025-03-30 20:53 | XMS_ITS | Encounter Summary ---
Author Organization [facility] Address [address] [place] [address] Phone Care Team Providers Care Supervisor Floor Assembly Name Role Phone Pcp, Unknown Primary Care Provider Unavailabl e Carrie Arias MD Primary Care Provider [phone] Carrie Arias MD Unavailable [phone] Sharmila Pitts RN Unavailable Sharmila Pitts RN Unavailable Sailaja Garcia Unavailable osiris Carrie Arias MD Primary Care Provider [phone] Hayde Montoya Unavailable Encounter Details Date Type Department Care Team (Late st Contact Info) Description 11/20/2022 Procedure Pass [facility], [address] [address] Social History Tobacco Use Types Packs/Day Years [...] Visit [facility] [address] [place] [address] Fuad Whaley, GAS STATION SERVICE ATTENDANT [address] [place] [address] [email or web address] 05/11/2025 2:40 PM EDT Office Visit [facility] [address] [place] [address] Ro Fortune MD, MPH [address] [facility] [address] [place] [address] [email or web address] 07/01/2025 2:00 PM EST Office Visit [facility] Neurology [address] [place] [address] Joaquin Baptiste MD 60 [place] [address] [email or web address] 07/07/2025 10:50 AM EST Office Visit [facility] [address] [place] [address] Bud Orellana DO [address] [place] [address] [email or web address] documented as of this encounter Visit Diagnoses Not on filedocumented in this encounter Care Teams Supervisor Floor Assembly Relationship Specialty Start Date End Date Pcp, Unknown PCP - General 12/03/22 01/22/23 Carrie Arias MD PCP - General Family Medicine 01/23/23 08/10/24 Carrie Arias MD [address] [place] [phone] [email or web address] PCP - General Family Medicine 08/11/24 Carrie Arias MD [address] [place] [address] [email or web address] Insurance Assigned Provider 02/23/23 04/26/23 Sharmila Pitts RN [address] [place] [address] [email or web address] Brake Shoe Rebuilder 06/10/23 07/07/23 Sharmila Pitts RN [address] [place] [address] [email or web address] [facility] Brake Shoe Rebuilder 08/29/23 Sailaja Garcia [address] [place] [address] [email or web address] [facility] Community Jira Administrator 11/27/23 11/27/23 Hayde Montoya [address] [place] [address] [email or web address] [facility] Community Health Worker 11/02/24 12/01/24 documented as of this encounter Additional Source Comments The information contained in this document represents components of the legal health record. It is not the complete legal health record.[facility]
--- OUTSIDE RECORDS SUMMARY | 2025-03-30 20:53 | XMS_ITS | Clinical Summary ---
Author Organization [facility] Address [address] [place] [phone] Phone Care Team Providers Care Precision Assembler Bench Name Role Phone Sharmila Pitts RN Unavailable Carrie Arias MD Primary Care Provider [phone] Allergies Active Allergy Reactions Criticality Noted Date Comments Bupropion Hcl 10/24/2024 Hydromorphone Angina High 03/29/2023 Gadolinium-Containing Contrast Media Angina High 03/29/2023 Pt states she has had episodes of nausea and vomiting during prior injections of gadolinium. She had one episode of chest pain with injection of gadolinium. Lamotrigine Rash Low 03/29/2023 Morphine Hives 01/08/2024 Pineapple Hives 01/08/2024 Atomoxetine Palpitations Low 07/12/2024 Ketorolac Angina High 03/29/2023 Oxcarbazepine Rash Low 03/29/2023 Medications acetaminophen (TYLENOL) 500 MG tablet Take 500 mg by mouth daily as needed. 3 Active hydrocortisone 2.5 % cream Apply 1 Application topically 2 (two) times a day. prn Active ergocalciferol (DRISDOL) 50,000 unit capsule Take 50,000 Units by mouth once a week. Active carvedilol (COREG) 25 MG tablet Take 1 tablet (25 mg total) by mouth 2 (two) times a day with meals. 60 tablet 11 4 Active levonorgestreL (KYLEENA) 17.5 mcg/24 hr (5 yrs) 19.5 mg intrauterine device 1 each by Intrauterine route. 5 030 Active amoxicillin-clav ulanate (AUGMENTIN) 875-125 mg per tablet Take 1 tablet by mouth 2 (two) times a day. 5 Active amLODIPine (NORVASC) 5 MG tablet Take 10 mg by mouth daily. Active LORazepam (ATIVAN) 0.5 MG tablet Take 0.5 mg by mouth 2 (two) times a day. 5 Active lidocaine (LIDODERM) 5 % Place 1 patch onto the skin daily. Remove & Discard patch within 12 hours or as directed by MD 30 patch 3 5 Active gabapentin (NEURONTIN) 600 MG tablet Take 1 tablet (600 mg total) by mouth 3 (three) times a day. 90 tablet 2 5 Active DULoxetine (CYMBALTA) 30 MG capsule Take 1 capsule (30 mg total) by mouth 2 (two) times a day. 60 capsule 3 5 Active hydroxychloroqui ne (PLAQUENIL) 200 mg tablet Take 1 tablet (200 mg total) by mouth 2 (two) times a day. 180 tablet 1 5 Active Active Problems Patient Care Coordination No te Formatting of this note migh t be different from the original. Patient is high risk for these reasons: intracranial meningioma, memory issues, bipolar 2, multiple psychosocial stressors, limited resources and supports Living Situation: lives with and four children in owned home Functional Status (ADL's/iADLs): independent with ADLs, requires assistance with iADLs, does not have consistent support for needed tasks, relies on and oldest child who are not always present. Family/Social Supports: is main support, oldest child (teenager) also sometimes helpful Goals of Care (HCP/Molst): HCP on file in this chart Community Supports (e.g. VNA, DME Vendors, Elder Services): none reported Transportation: pt relies on , pt has no DL and does not know how to drive Medication Management System/Specialized Pharmacy Needs: no special needs reported Financial Concerns: pt has no income, relies on ; pt applying for disability benefits Other Supports and Care Needs: none reported Problem Noted Date Diagnosed Date Arthralgia of multiple joints 02/02/2024 Assessment & Plan (02/02/2024 1:48 PM EDT): She has arthralgias in multiple areas without warm or swollen joints. She does not appear to have rheumatoid arthritis or other inflammatory arthritis, even though she was found to have a positive rheumatoid factor. Will send her for some repeat labs including rheumatoid studies and inflammatory markers. I am fully expecting her rheumatoid studies to be negative. Shortness of breath 01/30/2024 Assessment & Plan (01/30/2024 8:13 AM EDT): We will see what symptoms that she has on the treadmill Cardiac murmur, unspecified 01/30/2024 Assessment & Plan (09/01/2024 8:39 AM EST): She had a full complete cardiac workup including an echocardiogram as well as a stress test which were reassuringly normal. Assessment & Plan (07/12/2024 8:02 AM EST): Echocardiogram shows a mild tricuspid insufficiency as well as a trace mitral valve regurgitation. We did discuss good blood pressure control and trying to lose weight. I have suggested that she try to get more exercise as some of her symptoms may be related to being deconditioned. Palpitations 01/30/2024 Assessment & Plan (09/01/2024 8:39 AM EST): Palpitations seem to be better controlled on the carvedilol 25 mg twice daily. She also reports a improvement to her blood pressure but she continues to have chest heaviness with an elevated blood pressure when these symptoms do occur. She reports that these happen at rest and with standing. Overall she is tolerating the carvedilol 25 mg twice daily. She had a Holter monitor which showed sinus rhythm and sinus tachycardia but no arrhythmias. Assessment & Plan (07/12/2024 8:02 AM EST): She continues to feel palpitations however her Holter monitor does not reveal any arrhythmias other than sinus tachycardia. She is on carvedilol 12.5 mg twice daily which we are going to increase to 25 mg twice daily. Assessment & Plan (01/30/2024 8:13 AM EDT): As mentioned we are going to get an MCOT monitor echo and stress test which will be an nonnuclear study I will see her thereafter in follow-up ECG done today looks normal Benign essential hypertension 01/30/2024 Assessment & Plan (09/01/2024 8:39 AM EST): Blood pressure is well-controlled today 118/76. She is going to remain on carvedilol 25 mg twice daily. I did ask her to start walking and exercising in an effort to lose weight. Assessment & Plan (07/12/2024 8:03 AM EST): She reports her blood pressures seem to [...] She is strongly encouraged to lose weight. Assessment & Plan (01/30/2024 8:13 AM EDT): Well-controlled on carvedilol and spironolactone Encounters Date Type Department Care Team Description 03/24/2025 Patient Outreach [facility] [address] [place] [address] Sharmila Pitts RN [facility] Care [facility] Update ([facility] Plan of Care Update) 03/07/2025 11:35 AM EDT - 03/07/2025 11:59 PM EDT Hospital Encounter [facility] Phlebotomy Main Jacob [address] [place] [address] Discharge Disposition: Home or Self Care 03/07/2025 7:51 AM EDT - 03/07/2025 11:34 AM EDT Hospital Encounter [facility] Gisselle Ochoa [address] [facility], [address]nd [place] [address] Phil Paz MD Discharge Disposition: Home or Self Care 03/07/2025 Transcribe Orders [facility] Endocrinology [address] [place] [address] Adrianna Barahona PA Abnormal weight gain (Primary Dx); 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 Ancillary Orders [facility] [address] [place] [phone] Phil Paz MD Hypertension, unspecified type (Primary Dx); Albuminuria 02/18/2025 Patient Outreach [facility] [address] [place] [phone] Sharmila Pitts RN iCMP Care Plan Update (iCMP Plan of Care Update) 02/17/2025 Telephone [facility] [address] [place] [address] Ro Fortune MD, MPH Chest Pain ([facility]) 02/10/2025 Telephone [facility] [address] [place] [address] Schneider/pt advice 02/03/2025 Documentation [facility] [address] [place] [phone] Irasema SelfO Care Coordination ([facility] Nutrition referral - [employer]) 01/31/2025 Telephone [facility] [address] [place] [phone] Christal Chacon, [facility] Pharmacy 01/27/2025 Patient Outreach [facility] [address] [place] [phone] Sharmila Pitts, RN iCMP Care Plan Update (iCMP Plan of Care Update) 01/24/2025 Telephone [facility] [address] [place] [address] [place] [address] Phil Paz MD Medication Management 01/19/2025 4:00 PM EDT Office Visit [facility] Rheumatology [address] [place] [address] Saranya Arellano MD Seronegative arthritis (Primary Dx); Fibromyalgia; Raynaud's disease without gangrene; Long-term use of Plaquenil 01/13/2025 Patient Outreach [facility] [address] [place] [address] Sharmila Pitts RN Post Discharge Follow Up Call ([facility] post discharge assessment) 01/11/2025 Nurse Triage [facility] [address] [address] [place] [address] Phil Paz MD Blood Pressure Check; Hypertension; Dr Paz / active symptoms from Last 3 Months Family History Medical History Relation Comments Hyperlipidemia Father Hypertension Father Cancer Maternal Grandfather Bipolar disorder Mother Hypertension Mother Dementia Paternal Grandfather Glaucoma Paternal Grandfather Heart disease Paternal Grandfather Hypertension Paternal Grandfather Diabetes Paternal Grandmother Bipolar disorder Sister Relation Status Comments Father Maternal Grandfather Mother Paternal Grandfather Paternal Grandmother Sister Social History Tobacco Use Types Packs/Day [...] Orientation Straight 08/11/2024 2: 01 AM EST Last Filed Vital Signs Vital Sign Reading Time Taken Comments Blood Pressure 126/78 01/19/2025 3:56 PM EDT Pulse 100 01/19/2025 3:56 PM EDT Temperature 36.6 C (97.9 F) 10/26/2024 6:25 PM EDT Respiratory Rate 16 10/26/2024 6:25 PM EDT Oxygen Saturation 99% 01/19/2025 3:56 PM EDT Inhaled Oxygen Concentration - - Weight 100.2 kg (221 lb) 01/19/2025 3:56 PM EDT Height 157.5 cm (5' 2 ) 10/26/2024 2:33 PM EDT Body Mass Index 40.42 10/26/2024 2:33 PM EDT Plan of Treatment Upcoming Encounters Date Type Department Care Team (Late st Contact Info) Description 04/11/2025 8:00 AM EDT Office Visit [facility] [address] [place] [address] Fuad Whaley, BRANDY [address] [place] [address] 05/11/2025 2:40 PM EDT Office Visit [facility] [address] [place] [address] Ro Fortune MD, MPH [address] [facility] [address] [place] [address] [email or web address] 07/01/2025 2:00 PM EST Office Visit [facility] Neurology [address] [place] [address] Joaquin Baptiste MD [address] [place] [address] [email or web address] 07/07/2025 10:50 AM EST Office Visit [facility]ocr[facility]ology [address] [place] [address] Bud Orellana DO [address] [place] [address] [email or web address] Health Maintenance Due Date Last Done Comments HIV ONE-TIME SCREENING (18-65 YEARS) 2009 PNEUMOCOCCAL VACCINES (0-49 years) (1 of 2 - PCV) 2010 PAP SMEAR 2012 DEPRESSION SCREENING 09/25/2024 09/26/2023, 09/26/19 24 INFLUENZA VACCINE (#1) 2025 3, 04/26/2022, 05/16/2021, Additional history exists COVID-19 VACCINE (3 - 2024- season) 2025 05/19/2021, 04/28/2021 BLOOD PRESSURE 07/22/2025 01/19/2025 Adult Td,Tdap Booster 07/06/2027 07/06/2017 , 07/29/2015, 12/07/2003 MENINGOCOCCAL VACCINES (ACWY) Aged Out 08/14/2010 No longer eligible based on patient's age to complete this topic HEPATITIS C SCREENING Completed 04/20/2020 SMOKING STATUS SCREENING (Once After 26 Yrs) Completed 01/19/2025 HEPATITIS A VACCINES Aged Out No long er eligible based on patient's age to complete this topic HIB VACCINES Aged Out No longer eligi ble based on patient's age to complete this topic MENINGOCOCCAL VACCINES (B) Aged Out N o longer eligible based on patient's age to complete this topic Medical Devices Not on file Procedures Procedure Name Priority Date/Time Associated Diagnosis Comments URINE SEDIMENT Routine 03/07/2025 12:29 PM EDT TOTAL PROTEIN, RANDOM URINE Routine 03/07/2025 12:29 PM EDT URINE TP CRE RATIO Routine 03/07/2025 12 :29 PM EDT CENTROMERE ANTIBODY Routine 03/07/2025 1 2:29 PM EDT Hypertension, unspecified type Albuminuria SCL-70 ANTIBODY Routine 03/07/2025 12:29 PM EDT Hypertension, unspecified type Albuminuria LDH Routine 03/07/2025 12:29 PM EDT Hypertension, unspecified type Albuminuria HC COMPLEMENT ANTIGEN EACH COMPONENT Routine 03/07/2025 12:29 PM EDT Hypertension, unspecified type Albuminuria HAPTOGLOBIN Routine 03/07/2025 12:29 PM EDT Hypertension, unspecified type Albuminuria TOTAL COMPLEMENT Routine 03/07/2025 12:2 9 PM EDT Hypertension, unspecified type Albuminuria COMPLEMENT C4 Routine 03/07/2025 12:29 PM EDT Hypertension, unspecified type Albuminuria COMPLEMENT C3 Routine 03/07/2025 12:29 PM EDT Hypertension, unspecified type Albuminuria DOUBLE STRANDED DNA ANTIBODIES Routine 03/07/2025 12:29 PM EDT Hypertension, unspecified type Albuminuria ANTINUCLEAR ANTIBODY (UMA) Routine 03/07/2025 12:29 PM EDT Hypertension, unspecified type Albuminuria ALDOSTERONE Routine 03/07/2025 12:29 PM EDT Hypertension, unspecified type Albuminuria RENIN Routine 03/07/2025 12:29 PM EDT Hypertension, unspecified type Albuminuria METANEPHRINES, PLASMA Routine 03/07/2025 12:29 PM EDT Hypertension, unspecified type Albuminuria FREE T4 Routine 03/07/2025 12:29 PM EDT Hypertension, unspecified type Albuminuria TSH Routine 03/07/2025 12:29 PM EDT Hypertension, unspecified type Albuminuria URINALYSIS Routine 03/07/2025 12:29 PM EDT Hypertension, unspecified type Albuminuria MICROALBUMIN/CREATIN INE RATIO, RANDOM URINE Routine 03/07/2025 12:29 PM EDT Hypertension, unspecified type Albuminuria RENAL PANEL Routine 03/07/2025 12:29 PM EDT Hypertension, unspecified type Albuminuria US RENAL ARTERIES AND VEINS DUPLEX COMPLETE Routine 03/07/2025 8:34 AM EDT Hypertension, unspecified type from Last 3 Months Results * Total Protein/Creatinine Ratio, Urine (03/07/2025 12:29 PM EDT) URINE TP CRE RATIO 0.12 <0.15 [facility] 03/07/2025 12:2 9 PM EDT 03/07/2025 12:38 PM EDT Phil Paz MD URINE ORDERABLES Final Result Performing Organization Address City/State/[facility] Co de Phone Number [facility] [address] [place] [phone] * (ABNORMAL) Urine sediment (03/07/2025 12:29 PM EDT) WBC 1 <10 /hpf [facility] RBC <1 0 - 2 /hpf [facility] BACTERIA None None /hpf [facility] SQUAMOUS CELLS Trace(A) None /hpf [facility] HYALINE CAST 0-2 0 - 2 /lpf [facility] TRANSITIONAL EPITH None None /hpf [facility] CA OX CRYSTALS Trace(A) None /hpf [facility] 03/07/2025 12:2 9 PM EDT 03/07/2025 12:38 PM EDT us Phil Paz MD URINE ORDERABLES Final Result [facility] [address] [place] [address] * CENTROMERE ANTIBODY (03/07/2025 12:29 PM EDT) CENTROMERE IGG <0.2 <1.0 (Negative) U [facility] 03/07/2025 12:2 9 PM EDT 03/07/2025 12:43 PM EDT us Phil Paz MD LAB BLOOD ORDERABLES Final Re sult Performing Organization Address City/[facility] Co de Phone Number [facility] [address] [place] [address] * (ABNORMAL) Renal panel (03/07/2025 12:29 PM EDT) SODIUM 137 136 - 145 mmol/L [facility] POTASSIUM 3.6 3.4 - 5.1 mmol/L [facility] CHLORIDE 103 98 - 107 mmol/L [facility] CO2 28 22 - 31 mmol/L [facility] BUN 9 6 - 23 mg/dL [facility] CREATININE 0.59 0.50 - 1.20 mg/dL [facility] GLUCOSE 100 70 - 100 mg/dL [facility] CALCIUM 8.7(L) 8.8 - 10.7 mg/dL [facility] PHOSPHORUS 2.5 2.4 - 4.3 mg/dL [facility] ALBUMIN 3.8 3.5 - 5.2 g/dL [facility] EGFR >120 >59 mL/min/1.7 3m2 [facility] Comment:Estimated glomerular filtration rate calculated using the CKD-EPI refit equation. ANION GAP 6(L) 7 - 17 mmol/L [facility] 03/07/2025 12:2 9 PM EDT 03/07/2025 12:43 PM EDT Phil Paz MD LAB BLOOD ORDERABLES Final Re sult Performing Organization Address [facility] Co de Phone Number [facility] [address] [place] [phone] * (ABNORMAL) LDH (03/07/2025 12:29 PM EDT) LDH 235(H) 135 - 225 U/L [facility] 03/07/2025 12:2 9 PM EDT 03/07/2025 12:43 PM EDT Phil Paz MD LAB BLOOD ORDERABLES Final Re sult Performing Organization Address [facility] de Phone Number [facility] [address] [place] [phone] * Metanephrines, plasma (03/07/2025 12:29 PM EDT) [facility] METANEPHRINE 0.21 <0.50 nmol/L [facility] Comment: (NOTE) ADDITIONAL INFORMATION This test was developed and its performance characteristics determined by [facility] in a manner consistent with CLIA requirements. This test has not been cleared or approved by the U.S. Food and Drug Administration. NORMETANEPHRINE 0.71 <0.90 nmol/L [facility] 03/07/2025 12:2 9 PM EDT 03/07/2025 12:43 PM EDT Phil Paz MD LAB BLOOD ORDERABLES Final Re sult Performing Organization Address [facility] de Phone Number [facility] [address] [place] [address] * Soluble C5b-9 Level (03/07/2025 12:29 PM EDT) Soluble C5B-9 Complement 152.6 <256 ng/mL [facility] Comment: (NOTE) This test was developed and its performance characteristics determined by [facility]. It has not been cleared or approved by the U.S. Food and Drug Administration. Testing Performed At: [facility] [address] [place] [address], [address] [place] [address] Head Orthopedic Team Physician: Maximilian Gilliam, PhD MAYRA (ABB) CLIA # [id number] FLAG Interpretation: A = Abnormal, H = High, L = Low 03/07/2025 12:2 9 PM EDT 03/07/2025 12:43 PM EDT Phil Paz MD LAB BLOOD ORDERABLES Final Re sult Performing Organization Address [facility]/ZIP Co de Phone Number [facility] [facility] [address] [place] [address] * Scl-70 antibody (03/07/2025 12:29 PM EDT) Pathologist [facility] ANTI-SCL70 <1 0 - 20 CU [facility] Comment:SEMIQUANTITATIVE MET HOD PERFORMED 03/07/2025 12:2 9 PM EDT 03/07/2025 12:52 PM EDT Phil Paz MD LAB BLOOD ORDERABLES Final Re sult Performing Organization Address [facility]/ZIP Co de Phone Number [facility] [address] [place] [address] * (ABNORMAL) Microalbumin/creatinine ratio, random urine (03/07/2025 12:29 PM EDT) UR CREATININE 215.6 mg/dL [facility] Comment: No reference values apply. Interpret with other clinical data. MALB/CRE 44.5(H) 0.0 - 30.0 mg/Alb/g Cre [facility] URINE MICROALBUMIN 9.6(H) 0.0 - 2.0 mg/dL [facility] Urine 03/07/2025 12:2 9 PM EDT 03/07/2025 12:38 PM EDT Phil Paz MD URINE ORDERABLES Final Result Performing Organization Address [facility] Co de Phone Number [facility] [address] [place] [address] * Double stranded DNA antibodies (03/07/2025 12:29 PM EDT) ANTI DSDNA 29 0 - 30 IU/mL [facility] Comment:SEMIQUANTITATIVE MET HOD PERFORMED 03/07/2025 12:2 9 PM EDT 03/07/2025 12:52 PM EDT Phil Paz MD LAB BLOOD ORDERABLES Final Re sult Performing Organization Address [facility] de Phone Number [facility] [address] [place] [address] * Aldosterone (03/07/2025 12:29 PM EDT) ALDOSTERONE 7.4 <=21 ng/dL [facility] Comment: (NOTE) ADDITIONAL INFORMATION Reference range for patients 11 years and older is based on upright A.M. collection from subjects without sodium restrictions. This test was developed and its performance characteristics determined by [facility] in a manner consistent with CLIA requirements. This test has not been cleared or approved by the U.S. Food and Drug Administration. 03/07/2025 12:2 9 PM EDT 03/07/2025 12:43 PM EDT us Phil Paz MD LAB BLOOD ORDERABLES Final Re sult Performing Organization Address [facility] Co de Phone Number [facility] [address] [place] [address] * (ABNORMAL) Total protein, random urine (03/07/2025 12:29 PM EDT) Pathologist [facility] URINE TOTAL PROTEIN 26.2(H) 0 - 15 mg/dL [facility] Comment: 03/07/2025 12:2 9 PM EDT 03/07/2025 12:38 PM EDT us Phil Paz MD URINE ORDERABLES Final Result Performing Organization Address [facility] de Phone Number [facility] [address] [place] [phone] * Renin (03/07/2025 12:29 PM EDT) [facility] RENIN ACTIVITY <0.6 ng/ml/h [facility] Comment: (NOTE) REFERENCE VALUE (Peripheral vein specimen) Na-deplete, upright: Mean: 10.8 Range: 2.9-24 Na-replete, upright: Mean: 1.9 Range: < or =0.6-4.3 ADDITIONAL INFORMATION Testing performed by Liquid Chromatography-Tandem Mass Spectrometry (LC-MS/MS). This test was developed and its performance characteristics determined by [facility] in a manner consistent with CLIA requirements. This test has not been cleared or approved by the U.S. Food and Drug Administration. 03/07/2025 12:2 9 PM EDT 03/07/2025 12:43 PM EDT us Phil Paz MD LAB BLOOD ORDERABLES Final Re sult Performing Organization Address [facility] de Phone Number [facility] [address] [place] [address] * (ABNORMAL) Urinalysis (03/07/2025 12:29 PM EDT) COLOR LT YELLOW(A) Yellow [facility] CLARITY Clear Clear [facility] GLUCOSE Negative Negative [facility] BILI Negative Negative [facility] KETONES Negative Negative [facility] SPECIFIC GRAVITY 1.029 1.003 - 1.035 [facility] BLOOD Negative Negative [facility] PH 6.0 4.5 - 8.0 [facility] Protein-UA Trace(A) Negative [facility] UROBILINOGEN Negative Negative [facility] NITRITE Negative Negative [facility] Leukocyte esterase, ur Negative Negative [facility] Urine 03/07/2025 12:2 9 PM EDT 03/07/2025 12:38 PM EDT us Phil Paz MD URINE ORDERABLES Final Result Performing Organization Address [facility] de Phone Number [facility] [address] [place] [address] * Total Complement (03/07/2025 12:29 PM EDT) Pathologist [facility] TOTAL HEMALYTIC COMPLEMENT 87 42 - 95 U/mL [facility] 03/07/2025 12:2 9 PM EDT 03/07/2025 12:52 PM EDT us Phil Paz MD LAB BLOOD ORDERABLES Final Re sult Performing Organization Address [facility] de Phone Number [facility] [address] [place] [address] * Complement C3 (03/07/2025 12:29 PM EDT) Pathologist [facility] C3 159 90 - 180 mg/dl [facility] Comment: 03/07/2025 12:2 9 PM EDT 03/07/2025 12:52 PM EDT us Phil Paz MD LAB BLOOD ORDERABLES Final Re sult Performing Organization Address [facility] Co de Phone Number [facility] [address] [place] [phone] * Complement C4 (03/07/2025 12:29 PM EDT) C4 34 10 - 40 mg/dL [facility] Comment: 03/07/2025 12:2 9 PM EDT 03/07/2025 12:52 PM EDT Result Richard Paz MD LAB BLOOD ORDERABLES Final Re sult Performing Organization Address [facility] Co de Phone Number [facility] [address] [place] [phone] * Antinuclear antibody (UMA) (03/07/2025 12:29 PM EDT) UMA Result Negative Negative [facility] 03/07/2025 12:2 9 PM EDT 03/07/2025 12:52 PM EDT us Phil Paz MD LAB BLOOD ORDERABLES Final Re sult Performing Organization Address [facility] Co de Phone Number [facility] [address] [place] [address] * TSH (03/07/2025 12:29 PM EDT) TSH 2.57 0.50 - 5.70 uIU/mL [facility] 03/07/2025 12:2 9 PM EDT 03/07/2025 12:43 PM EDT Result Richard Paz MD LAB BLOOD ORDERABLES Final Re sult Performing Organization Address [facility] Co de Phone Number [facility] [address] [place] [address] * Free T4 (03/07/2025 12:29 PM EDT) FREE T4 0.9 0.9 - 1.7 ng/dL [facility] 03/07/2025 12:2 9 PM EDT 03/07/2025 12:43 PM EDT us Phil Paz MD LAB BLOOD ORDERABLES Final Re sult Performing Organization Address [facility]/State/ZIP Co de Phone Number [facility] [address] [place] [address] * Haptoglobin (03/07/2025 12:29 PM EDT) HAPTOGLOBIN 138 32 - 197 mg/dL [facility] 03/07/2025 12:2 9 PM EDT 03/07/2025 12:52 PM EDT us Phil Paz MD LAB BLOOD ORDERABLES Final Re sult [facility] [address] [place] [address] * US RENAL ARTERIES AND VEINS DUPLEX [...] analysis. COMPARISON: CT ABDOMEN/PELVIS (KIDNEY STONE) WITHOUT [id number] FINDINGS: Exam Quality: Technically limited exam demonstrates: [...] No evidence of renal artery stenosis bilaterally. Phil Paz MD IM US ABDOMEN Final Result from Last 3 Months Insurance [facility] Advance Directives For more information, please contact: [phone] (9AM - 5PM Lacey/[facility], Friday-Friday) Documents on File Type Date Recorded Patient Motorcyles Final Inspector Expl serina Healthcare Proxy 09/26/2023 11:19 AM Health care proxy - Key Galdamez Care Teams Precision Assembler Bench Relationship Specialty Start Date End Date Carrie Arias MD [address] [place] [phone] [email or web address] PCP - General Family Medicine 08/11/24 Sharmila Pitts RN [address] [place] [phone] [email or web address] Log Loader 08/29/23 Additional Source Comments The information contained in this document represents components of the legal health record. It is not the complete legal health record.[facility]
--- OUTSIDE RECORDS SUMMARY | 2025-03-30 20:53 | XMS_ITS | Encounter Summary ---
Author Organization [facility] Address [address] [place] [phone] Phone Care Team Providers Care Detail Maker And Fitter Name Role Phone Sharmila Pitts RN Unavailable Carrie Arias MD Primary Care Provider [phone] Hayde Montoya Unavailable [email or web address] Encounter Details Date Type Department Care Team (Late st Contact Info) Description 10/24/2024 Procedure Pass [facility], Ct Scan - [address] [address] Social History Tobacco Use Types Packs/Day Years [...] AM EST documented as of this encounter Functional Status * Calculated C-SSRS Risk Score (Lifetime/Recent) Answer Date of Assessment Author No Risk Indicated 10/26/2024 2:33 PM EDT Georgia Luciano RN * [place] Suicide Severity Rating Scale (Screener/Recent Self-Report) Question Answer Date of Assessment Author 1. Wish to be (Past 1 Month) No 10/26/2024 2:33 PM EDT Sonya Guillermo RN 2. Non-Specific Active Suicidal Thoughts (Past 1 Month) No 10/26/2024 2:33 PM EDT Sonya Guillermo RN 6. Suicidal Behavior (Lifetime) No 10/26/2024 2:33 PM EDT Sonya Guillermo RN documented as of this encounter Plan of Treatment Upcoming Encounters Date Type Department Care Team (Late st Contact Info) Description 04/11/2025 8:00 AM EDT Office Visit [facility] [address] [place] [address] Fuad Whaley, BRANDY [address] [place] [address] 05/11/2025 2:40 PM EDT Office Visit [facility] [address] [place] [address] Ro Fortune MD, MPH [address] [facility] [place] [address] [email or web address] 07/01/2025 2:00 PM EST Office Visit [facility] Neurology [address] [place] [address] Joaquin Baptiste MD [address] [place] [address] [email or web address] 07/07/2025 10:50 AM EST Office Visit [facility] [address] [place] [address] Bud Orellana DO [address] [place] [address] documented as of this encounter Visit Diagnoses Not on filedocumented in this encounter Additional Health Concerns Assessment Noted Time PHQ-9 Depression Total Score: 17 024 10:00 AM EST PHQ-2 Depression Total Score: 4 09/26/19 24 10:00 AM EST documented as of this encounter Care Teams Detail Maker And Fitter Relationship Specialty Start Date End Date Carrie Arias MD [address] [place] [phone] [email or web address] PCP - General Family Medicine 08/11/24 Sharmila Pitts, RN [address] [place] [phone] [email or web address] Configuration Management Specialist 08/29/23 Hayde Montoya [address] [place] [email or web address] [facility] 11/02/24 12/01/24 documented as of this encounter Additional Source Comments The information contained in this document represents components of the legal health record. It is not the complete legal health record.[facility]
--- OUTSIDE RECORDS SUMMARY | 2025-03-30 20:53 | XMS_ITS | Encounter Summary ---
Author Organization [facility] Address [address] [facility] [address] [place] [phone] Phone Care Team Providers Care Occ Ther Name Role Phone Carrie Arias MD Primary Care Provider [phone] Sharmila Pitts RN Unavailable Sailaja Garcia Unavailable [email or web address] Carrie Arias MD Primary Care Provider [phone]- [phone] Hayde Montoya Unavailable [email or web address] Reason for Referral * MRI/CAT Scan - Closed Specialty Diagnoses / Procedures Referred By Randall cevallos Referred To Contact Radiology Diagnoses Neck pain Numbness Procedures MRI Cervical Spine Bud Lind MD [address] [place] [address], [address] [place] [phone] Phone: tel: fax: [email or web address] Referral ID Status Reason Start Date Expiration Date Visits Re quested Visits Authorized [id number] Closed 08/20/2023 1 1 Encounter Details Date Type Department Care Team (Latest Contact Info) Description 08/20/2023 Transcribe Orders [facility] Department [address] [place] [address] [phone] Bud Lind MD [address] [place] [address], [address] [place] [address] [phone] [email or web address] Neck pain (Primary Dx); Numbness Social History Tobacco Use Types Packs/Day Years [...] Description 04/11/2025 8:00 AM EDT Office Visit [facility] [address] [place] [address] Fuad Whaley, BRANDY [address] [place] [address] 05/11/2025 2:40 PM EDT Office Visit [facility] [address] [place] [address] Ro Fortune MD, MPH [address] [phone] [email or web address] 07/01/2025 2:00 PM EST Office Visit [facility] Neurology [address] [place] [address] Joaquin Baptiste MD [address] [place] [address] [email or web address] 07/07/2025 10:50 AM EST Office Visit [facility] [address] [place] [address] Bud Orellana DO [address] [place] [address] [email or web address] documented as of this encounter Results * MRI CERVICAL SPINE (NEURO) FOCUS WITHOUT CONTRAST (09/13/2023 11:42 AM EST) Anatomical Region Laterality Modality C-spine Magnetic Resonan ce 09/14/2023 1:39 AM EST Addenda Addendum by Ahmet Humphrey MD on 09/15/2023 11:41 PM EST ADDENDUM: A prior MR C Spine was imported from 12/24/2020 performed at [facility] . When compared to 12/24/2020: There is similar reversal of the cervical lordosis centered at C4/5 without spondylolisthesis. Disc desiccation C3-C6 is unchanged. There is now early disc desiccation at C6-7. Prominent cervical lymph nodes measuring up to 7-8 mm in short axis are new from 2020. Posterior disc bulges have minimally increased in prominence when compared to 202 at C3-4, C4-5, C5-6, and C6-7. There remains no significant spinal canal or neuroforaminal stenosis. Impressions 09/14/2023 11:40 PM EST Multilevel posterior disc bulges at C3-C6. No spinal canal or neuroforaminal stenosis. Narrative 09/14/2023 11:40 PM EST MRI CERVICAL SPINE (NEURO) FOCUS WITHOUT CONTRAST REQUESTED INDICATION: Outside Radiology Order; NECK PAIN TECHNIQUE: MRI CERVICAL SPINE (NEURO) FOCUS WITHOUT CONTRAST COMPARISON: None FINDINGS: ALIGNMENT: Reversal of the cervical lordosis centered at C4-5. MARROW: No compression fracture or marrow replacing lesion. Homogeneous T1 hypointense marrow signal without T2/STIR hyperintense foci, likely reflecting diffuse red marrow in a patient of this age. DISCS: Diffuse disc desiccation C3-C7. CORD: Cord and posterior fossa within normal limits. PARASPINAL SOFT TISSUES: Prominent cervical lymph nodes that do not meet size criteria and measure up to 7 mm in short axis. Vertebral artery flow voids preserved. FINDINGS BY LEVEL: C2-3: No spinal canal or neuroforaminal stenosis. C3-4: Diffuse disc bulge eccentric to the left. No spinal canal or neuroforaminal stenosis. C4-5: Diffuse disc bulge. No spinal canal or neuroforaminal stenosis. C5-6: Diffuse disc bulge and uncovertebral spurring. No spinal canal or neuroforaminal stenosis. C6-7: Diffuse disc bulge. No spinal canal or neuroforaminal stenosis. C7-T1: No spinal canal or neuroforaminal stenosis. Procedure Note Ahmet Humphrey MD - 09/14/2023 MRI CERVICAL SPINE (NEURO) FOCUS WITHOUT CONTRAST REQUESTED INDICATION: Outside Radiology Order; NECK PAIN TECHNIQUE: MRI CERVICAL SPINE (NEURO) FOCUS WITHOUT CONTRAST COMPARISON: None FINDINGS: ALIGNMENT: Reversal of the cervical lordosis centered at C4-5. MARROW: No compression fracture or marrow replacing lesion. Homogeneous [id number] marrow signal without T2/STIR hyperintense foci, likelyreflecting diffuse red marrow in a patient of this age. DISCS: Diffuse disc desiccation C3-C7. CORD: Cord and posterior fossa within normal limits. PARASPINAL SOFT TISSUES: Prominent cervical lymph nodes that do not meetsize criteria and measure up to 7 mm in short axis. Vertebral artery flowvoids preserved. FINDINGS BY LEVEL: C2-3: No spinal canal or neuroforaminal stenosis. C3-4: Diffuse disc bulge eccentric to the left. No spinal canal orneuroforaminal stenosis. C4-5: Diffuse disc bulge. No spinal canal or neuroforaminal stenosis. C5-6: Diffuse disc bulge and uncovertebral spurring. No spinal canal orneuroforaminal stenosis. C6-7: Diffuse disc bulge. No spinal canal or neuroforaminal stenosis. C7-T1: No spinal canal or neuroforaminal stenosis. IMPRESSION: Multilevel posterior disc bulges at C3-C6. No spinal canal or neuroforaminal stenosis. Bud Lind MD IMG MR XSPECIALTY Edited Res ult - Final documented in this encounter Visit Diagnoses Diagnosis Neck pain- Primary Cervicalgia Numbness Disturbance of skin sensation Neck pain Cervicalgia Numbness Disturbance of skin sensation documented in this encounter Care Teams Occ Ther Relationship Specialty Start Date End Date Carrie Arias MD PCP - General Family Medicine 01/23/23 08/10/24 Carrie Arias MD [address] [place] [phone] [email or web address] PCP - General Family Medicine 08/11/24 Sharmila Pitts RN [address] [place] [phone] [facility] 08/29/23 Sailaja Garcia [address] [place] [phone] [email or web address] Community Gasoline Tester 11/27/23 11/27/23 Hayde Montoya [address] [place] [phone] [facility] Worker 11/02/24 12/01/24 documented as of this encounter Additional Source Comments The information contained in this document represents components of the legal health record. It is not the complete legal health record.[facility]
--- NOTE | 2025-03-30 21:25 | PC.NURSE ---
pt medicated per sep, tolerated whole well with water
[2025-03-30 21:40] VITALS: BP 118/74; PULSE 71; RESP 18; TEMP 36.7; O2SAT 98
== END 2025-03-30 21:50 | disposition home or self-care (01) ==
PROVIDERS: Physician Assistant Medical; Emergency Provider Student in an Organized Health Care Education/Training Program; PCP Family Medicine
DX: R07.9 Chest pain, unspecified (principal); I10 Essential (primary) hypertension; Z79.899 Other long term (current) drug therapy
CPT/HCPCS: 71046; 80053; 81001; 83735; 84484; 84702; 85025; 85610; 87502; 87635; 93005; 99283; 99285

== ENCOUNTER → 2025-03-30 18:38 | Outpatient (BNV) | payer MEDICAID, SELFPAY | PROVIDERS: Emergency Provider Student in an Organized Health Care Education/Training Program; PCP Family Medicine; Visit Provider Internal Medicine Cardiovascular Disease | DX: R07.9 Chest pain, unspecified (principal) | CPT/HCPCS: 93010 ==

== ENCOUNTER → 2025-03-30 19:00 | Outpatient (BNV) | payer MEDICAID, SELFPAY | PROVIDERS: PCP Family Medicine; Visit Provider Radiology Diagnostic Radiology | DX: R07.9 Chest pain, unspecified (principal) | CPT/HCPCS: 71046 ==